=== PATIENT | male | born 1955 | race Two or more races ===

== ENCOUNTER 2017-06-06 09:34 | Inpatient (IN) | payer OTHER ==
[~2017-06-06] VITALS: Ht 160 cm; Wt 83.1 kg
--- NOTE | 2017-06-06 09:45 | NUR ---
BIB RA C/O L SIDED CP, NON RADIATING SINCE LAST NIGHT WITH SOB GIVEN ASA AND NITRO IN FIELD W RELIEF. PLACED ON MONITOR. PT HAS LAC #18 IVG SERVICE CREW LEADER
[2017-06-06 09:59] LABS: BASOPHILS # (AUTO) 0.1 /CMM (0.0-0.2); HEMATOCRIT 35 % (39-51); HEMOGLOBIN 11.8 g/dL (13.5-17.5); LYMPHOCYTES # (AUTO) 1.7 /CMM (0.8-4.8); LYMPHOCYTES % (AUTO) 21.7 % (20.0-44.0); MEAN CORPUSCULAR HGB CONC 34 g/dl (31.0-36.0); MEAN CORPUSCULAR VOLUME 93 fL (80-96); MONOCYTES # (AUTO) 0.6 /CMM (0.1-1.30); MONOCYTES % (AUTO) 7.7 % (2.0-12.0); NEUTROPHILS # (AUTO) 5.4 /CMM (1.8-8.9); NEUTROPHILS % (AUTO) 68.6 % (43.0-81.0); PLATELET COUNT (AUTO) 203 /CMM (150-450); RDW COEFFICIENT OF VARIATION 13.7 (11.5-15.0); RED BLOOD CELL COUNT(AUTO) 3.77 MIL/uL (4.5-6.0); WHITE BLOOD COUNT (AUTO) 7.9 K/uL (4.3-11.0)
[2017-06-06 10:08] LABS: CALCIUM, SERUM 9.1 mg/dL (8.5-10.1); CREATININE 1.2 mg/dL (0.6-1.3); POTASSIUM 4.2 mmol/L (3.5-5.1)
[2017-06-06 10:10] LABS: INR 1.12 (0.85-1.15)
[2017-06-06 10:14] LABS: ALBUMIN 3.5 g/dL (3.4-5.0); BILIRUBIN,DIRECT 0.2 mg/dL (0.0-0.2); BILIRUBIN,TOTAL 0.5 mg/dL (0.2-1.0); TOTAL PROTEIN, SERUM 7.5 g/dL (6.4-8.2); TROPONIN I 0.03 ng/mL (0.00-0.056)
[2017-06-06 10:20] LABS: ALCOHOL, BLOOD < 3 mg/dL (0-0); LIPASE 226 U/L (73-393)
--- NOTE | 2017-06-06 10:36 | NUR ---
PAGED EPIC COUNTER MANAGER IS DR KNOWLES
--- NOTE | 2017-06-06 11:12 | NUR ---
REPORT GIVEN TO ILIANA HUTTON FOR MUKUL TELE [phone]
[2017-06-06] MEDS ORDERED: IV NS 0.9% 1,000 ML IV PRN (11:16)
[2017-06-06] MEDS ORDERED: ZOLPIDEM TARTRATE 5 MG TABLET PO PRN (11:30)
[2017-06-06] MEDS ORDERED: ACETAMINOPHEN 325 MG TABLET PO PRN (11:30)
[2017-06-06] MEDS ORDERED: MORPHINE SULFATE INJ 2 MG/ML DISP.SYRIN IV PRN (11:30)
[2017-06-06] MEDS ORDERED: MAG HYDROX/AL HYDROX/SIMETH 30 ML UDC PO PRN (11:30)
[2017-06-06] MEDS ORDERED: MAGNESIUM HYDROXIDE 30 ML UDC PO PRN (11:30)
[2017-06-06] MEDS ORDERED: Z GUARD REMEDY 2 OZ OINT TP PRN (11:30)
[2017-06-06] MEDS ORDERED: ONDANSETRON HCL/PF 4 MG/2 ML VIAL IVP PRN (11:30)
--- NOTE | 2017-06-06 11:45 | NUR ---
RN NOTES PT WAS BROUGHT TO THE FLOOR IN STABLE CONDITION, ALERT AND ORIENTED X4. PT ABLE TO AMBULATE TO THE BED. IV ON LAC INTACT AND SL. PT ON RA, RESPIRATIONS ARE EVEN AND UNLABORED. TELE MONITOR SHOWS SR. SAFETY MEASURES ARE IN PLACE, CALL LIGHT IS IN REACH. WILL CONTINUE TO MONITOR.
[2017-06-06] MEDS ORDERED: FENTANYL PF 100MCG/2ML AMPUL IV PRN ×2 (12:00→18:30)
[2017-06-06] MEDS: ASPIRIN 81 MG TAB.CHEW PO SCH (12:18)
[2017-06-06] MEDS: PANTOPRAZOLE 40 MG TABLET.DR PO SCH (12:18)
[2017-06-06] MEDS: ENOXAPARIN SODIUM 40 MG/0.4 ML DISP.SYRIN SQ SCH (12:19)
[2017-06-06 13:03] LABS: MAGNESIUM 1.7 mg/dL (1.8-2.4); PHOSPHORUS 4.6 mg/dL (2.5-4.9)
[2017-06-06 14:00] LABS: THYROID STIMULATING HORMONE 4.199 uIU/mL (0.358-3.74)
[2017-06-06] MEDS: ALBUTEROL FS 2.5 MG/3 ML VIAL.NEB NEB SCH ×2 (15:30→19:47)
[2017-06-06 16:00] VITALS: BP 139/91
[2017-06-06] MEDS: NITROGLYCERIN 0.4 MG/TAB BOTTLE SL PRN ×2 (17:39→17:45)
[2017-06-06 17:45] VITALS: BP 137/70
[2017-06-06 17:50] VITALS: BP 128/76
--- NOTE | 2017-06-06 17:50 | NUR ---
RN NOTES PT REPORTING HAVING NON RADIATING CHEST PAIN, "FEELS LIKE SOMEONE IS SITTING ON MY CHEST". MADE MD AWARE. MD ORDERED NITROSTAT, STAT TROPONIN, AND EKG. NITRO GIVEN X2, CHEST PAIN RESOLVED. TELE MONITOR SHOWS SINUS TACH. WILL CONTINUE TO MONITOR.
--- NOTE | 2017-06-06 18:37 | NUR ---
RN NOTES PT IS SITTING UP IN BED, AWAKE AND ALERT. PT ON 3L O2, RESPIRATIONS ARE EVEN AND UNLABORED. IV ON LAC INTACT AND SL, PT DOES NOT WANT TO BE CONNECTED AT THIS TIME. PT REFUSED TO HAVE SKIN ASSESSMENT DONE. ALL MEDS WERE GIVEN ORDERED AND PT NEEDS MET. NO SIGNS OF DISTRESS NOTED. TELE MONITOR SHOWS SINUS RHYTHM. SAFETY MEASURES ARE IN PLACE, CALL LIGHT IS IN REACH. WILL ENDORSE TO AVIATION TECHNICAL SYSTEMS SPECIALIST RN FOR CONTINUITY OF CARE.
[2017-06-06] MEDS: HYDROCODONE/APAP 5/325MG 1 EACH TABLET PO PRN (19:55)
[2017-06-06 20:00] VITALS: BP 138/99
--- NOTE | 2017-06-06 20:00 | NUR ---
RN NOTES RECEIVED PATIENT IN BED, ALERT AND ORIENTED X4, WITH EPISODES OF IRRITABILITY, NO SOB, ON PRN O3 VIA NC, COMPLAINING OF 9/10 PAIN, GENERALIZED, GIVEN NORCO 1 TAB, LEFT AC PERIPHERAL LINE IS PATENT AND INFUSING WELL, REMINDED PATIENT OF BEING NPO AFTER MIDNIGHT, PATIENT VERBALIZED UNDERSTANDING. NO COMPLAIN OF CHEST PAIN, NEEDS ATTENDED, CALL LIGHT WITHIN REACH.
[2017-06-06 22:00] VITALS: BP 138/99
[2017-06-06] MEDS ORDERED: ATORVASTATIN 40 MG TABLET PO SCH (22:00)
[2017-06-07] VITALS: BP 121/92
[2017-06-07] MEDS: HYDROCODONE/APAP 5/325MG 1 EACH TABLET PO PRN (00:19)
[2017-06-07 04:00] VITALS: BP 128/85
--- NOTE | 2017-06-07 06:14 | NUR ---
RN NOTES PATIENT IS ALERT AND AWAKE, NO DISTRESS, ON 3LPM VIA NC, SPO2 AT ROOM AIR 90%. ON TELE MONITOR, SINUS TACHY 110, GIVEN NORCO FOR GENERALIZED PAIN. FOR EGD THIS AM, CONSENT SIGNED AND CHECKLIST IN CHART, NPO SINCE AFTER MIDNIGHT. AWAITING FELT CARBONIZER FROM SURGERY. NEEDS ATTENDED, CALL LIGHT WITHIN REACH.
[2017-06-07 06:51] LABS: ALBUMIN 3.2 g/dL (3.4-5.0); BILIRUBIN,TOTAL 0.3 mg/dL (0.2-1.0); CALCIUM, SERUM 9.1 mg/dL (8.5-10.1); CREATININE 1.1 mg/dL (0.6-1.3); MAGNESIUM 1.7 mg/dL (1.8-2.4); PHOSPHORUS 4.7 mg/dL (2.5-4.9); TOTAL PROTEIN, SERUM 7.3 g/dL (6.4-8.2)
[2017-06-07] MEDS ORDERED: ANESTHESIA TRAY IN PYXIS 1 EA TRAY MC ONE (06:52)
[2017-06-07 06:57] LABS: TROPONIN I 0.032 ng/mL (0.00-0.056)
[2017-06-07] MEDS: ALBUTEROL FS 2.5 MG/3 ML VIAL.NEB NEB SCH ×2 (07:09→10:43)
[2017-06-07 07:15] LABS: BASOPHILS # (AUTO) 0.1 /CMM (0.0-0.2); BASOPHILS % (AUTO) 1.3 % (0.0-2.0); EOSINOPHILS % (AUTO) 1.8 % (0.0-6.0); HEMATOCRIT 37 % (39-51); HEMOGLOBIN 12.3 g/dL (13.5-17.5); LYMPHOCYTES # (AUTO) 2.3 /CMM (0.8-4.8); LYMPHOCYTES % (AUTO) 25.4 % (20.0-44.0); MEAN CORPUSCULAR HGB CONC 34 g/dl (31.0-36.0); MEAN CORPUSCULAR VOLUME 95 fL (80-96); MONOCYTES # (AUTO) 0.7 /CMM (0.1-1.30); MONOCYTES % (AUTO) 7.4 % (2.0-12.0); NEUTROPHILS # (AUTO) 5.7 /CMM (1.8-8.9); NEUTROPHILS % (AUTO) 64.1 % (43.0-81.0); PLATELET COUNT (AUTO) 207 /CMM (150-450); RDW COEFFICIENT OF VARIATION 14.9 (11.5-15.0); RED BLOOD CELL COUNT(AUTO) 3.87 MIL/uL (4.5-6.0); WHITE BLOOD COUNT (AUTO) 8.9 K/uL (4.3-11.0)
--- NOTE | 2017-06-07 07:35 | NUR ---
MANDREL CLEANER OPENING NOTES RECEIVED PATIENT IN BED AWAKE, ALERT AND ORIENTED X4 IN NO ACUTE SIGNS OF DISTRESS. VERBALLY RESPONSIVE, NO C/O PAIN OR DISCOMFORTS AT THIS TIME. ON TELEMONITORING WITH CURRENT READING OF SINUS TACHY WITH HR OF 103, NO C/O CHEST PAIN VOICED. ON 02 VIA N/C AT 3LPM AT THIS TIME, TOLERATING WELL WITH NO SOB NOTED. IV ACCESS ON LEFT AC PATENT AND INTACT, IVF OF NS @ 75ML/HR INFUSING WELL. PT FOR FOR EGD AND STRESS TEST TODAY, NPO POST MIDNIGHT MAINTAINED. BED IN LOW/LOCKED POSITION. CALL LIGHT WITHIN REACH. WILL CONTINUE TO MONITOR PT.
--- NOTE | 2017-06-07 07:41 | NUR ---
RN NOTES PATIENT JUST PICKED-UP BY OR NURSE SARAH FOR EGD VIA PT'S BED. V/S TAKEN: BP 112/64MMHG, P 93, R18, T 97.8f. PT REFUSED TO PUT O2 VIA N/C, SP02 93%, OR NURSE SARAH AWARE.
[2017-06-07 08:00] VITALS: BP 138/96
[2017-06-07] MEDS ORDERED: REGADENOSON 0.4 MG/5 ML DISP.SYRIN IVP ONE (09:00)
[2017-06-07] MEDS ORDERED: ASPIRIN 81 MG TAB.CHEW PO SCH (09:00)
--- NOTE | 2017-06-07 09:06 | NUR ---
RN NOTES PT RETURNED FROM O.R ACCOMPANIED BY MILENA CORDOBA, OR NURSE. ALERT AND OREINTED X 4, FOLLOWS COMMANDS AND IN 02 VIA N/C AT 3LPM , NO SOB NOTED WITH SP02 OF 98%. PT S/P EGD. V/S TAKEN: BP 115/78, P 98, R 18 [address] T 97.4F. SURGICAL DR WITH ORDERS TO RESUME ALL MEDS, ADVANCE DIET TOLERATED AND GIVE PROTONIX 40MG TAB DAILY. WILL CONTINUE TO MONITOR
--- NOTE | 2017-06-07 09:23 | NUR ---
RN NOTES PATIENT BROUGHT DOWN FOR STRESS TEST VIA SAMMIERNEY A/O X 4 IN NO ACUTE SIGNS OF DISTRESS.
--- NOTE | 2017-06-07 09:53 | NUR ---
RN NOTES PATIENT NOTED WITH LOW LEVEL OF MG 1.7, 2mg IV MAGNESIUM TO BE GIVEN. WILL CONTINUE TO MONITOR.
[2017-06-07] MEDS: Magnesium 1GM/D5W 100ML PREMIX 100 ML IV SCH ×2 (10:10→11:11)
[2017-06-07] MEDS: ASPIRIN 81 MG TAB.CHEW PO SCH (10:10)
[2017-06-07] MEDS: PANTOPRAZOLE 40 MG TABLET.DR PO SCH (10:11)
[2017-06-07] MEDS: ENOXAPARIN SODIUM 40 MG/0.4 ML DISP.SYRIN SQ SCH (10:12)
[2017-06-07] MEDS ORDERED: PANT40TA2 PO (10:57)
--- NOTE | 2017-06-07 12:25 | NUR ---
Social service consult requested by Dr. Parry for homelessness. Pt. is a 61 year old male who was admitted to [facility] for chest pain. SW spoke to Med Surg3 MONSE Crowder who informed SW that pt. refused to see a social research assistant and informed MONSE Crowder that he does not need any resources and he has a place to live and can get there as well. No other social service needs are required at this time.
--- NOTE | 2017-06-07 12:57 | NUR ---
RN DISCHARGED NOTES PATIENT LEFT UNIT AMA AT 1230H AMBULATORY. PT IS AGITATED, SCREAMING AT STAFF AND REFUSED TO SIGN AMA CONSENT AND DISCHARGE PAPERS DESPITE ENCOURAGING HIM TO WAIT FOR THE RESULTS OF HIS TESTS (EGD AND STRESS TEST) THAT WAS DONE THIS MORNING. PT IS HOMELESS AND PREFERRED TO BE ON THE STREET. REFUSED TO TAKE PRESCRIPTION STATING HE DOESN'T TAKE ANY HOME MEDICATION. CHARGE NURSE AND AWARE.
[2017-06-30] MEDS ORDERED: BUME1TAB4 PO (08:25)
[2017-06-30] MEDS ORDERED: ASPI-1169 PO (08:25)
[2017-06-30] MEDS ORDERED: CARV3.122 PO (08:25)
[2017-06-30] MEDS ORDERED: GABA300C PO (08:25)
== END 2017-06-07 12:30 | disposition home or self-care (01) | DRG 241 ==
LOC: ER 09:36 → TELE 11:37 → MED 06-07 11:15
PROVIDERS: ADMIT Internal Medicine; ATTEND Internal Medicine
PROC: 0DB58ZX Excision of Esophagus, Via Natural or Artificial Opening Endoscopic, Diagnostic (ICD-10-PCS; principal; 2017-06-07 07:30)
PROC: 0DB68ZX Excision of Stomach, Via Natural or Artificial Opening Endoscopic, Diagnostic (ICD-10-PCS; principal; 2017-06-07 07:30)
DX: K29.00 Acute gastritis without bleeding (principal); I24.9 Acute ischemic heart disease, unspecified; E83.42 Hypomagnesemia; I10 Essential (primary) hypertension; D63.8 Anemia in other chronic diseases classified elsewhere; E11.9 Type 2 diabetes mellitus without complications; E78.5 Hyperlipidemia, unspecified; F10.20 Alcohol dependence, uncomplicated; Y90.0 Blood alcohol level of less than 20 mg/100 ml; Z86.73 Personal history of transient ischemic attack (TIA), and cerebral infarction without residual deficits; G89.29 Other chronic pain; F32.9 Major depressive disorder, single episode, unspecified; F17.200 Nicotine dependence, unspecified, uncomplicated; Z59.0 Homelessness; Z83.3 Family history of diabetes mellitus; Z82.49 Family history of ischemic heart disease and other diseases of the circulatory system; K21.0 Gastro-esophageal reflux disease with esophagitis; F39 Unspecified mood [affective] disorder
CPT/HCPCS: 36415; 71045-TC; 80048-TC; 80053-TC; 80061-TC; 80076-TC; 82306; 82728-TC; 83540-TC; 83690-TC; 83735-TC; 84100-TC; 84439-TC; 84443-TC; 84484-TC; 85025-TC; 85730-TC; 87081-TC; 88305-TC; 88313-TC; 88342; 93307-TC; 94799-TC; A4606; A9502; G0480; J1650; J2704; J2785; J3475; J3490; J7030; Z7610

== ENCOUNTER 2017-06-26 01:12 | Inpatient (IN) | payer OTHER ==
[~2017-06-26] VITALS: Ht 172.7 cm; Wt 81.6 kg
[~2017-06-26 01:12] MED LIST: PANT40TA2 PO
--- NOTE | 2017-06-26 01:12 | NUR ---
BIBRA 39 C/O LEFT SIDED CHEST PAIN AND SOB SINCE 10:30PM. FIELD BS 121. PT NOTED BREATHING HEAVILY AND ADMITS SMOKING DAILY. VSS A/OX4. WILL CONTINUE TO MONITOR FOR ANY CHANGES DURING THE SHIFT.
[2017-06-26] MEDS ORDERED: MORPHINE SULFATE INJ 4 MG/ML DISP.SYRIN ONE (01:23)
[2017-06-26] MEDS ORDERED: ONDANSETRON HCL/PF 4 MG/2 ML VIAL ONE (01:23)
[2017-06-26] MEDS ORDERED: ALBUTEROL FS 2.5 MG/0.5 ML VIAL.NEB ONE (01:27)
--- NOTE | 2017-06-26 01:27 | NUR ---
EKG AT BEDSIDE
[2017-06-26 01:29] LABS: BASOPHILS # (AUTO) 0.1 /CMM (0.0-0.2); BASOPHILS % (AUTO) 0.9 % (0.0-2.0); EOSINOPHILS % (AUTO) 1.6 % (0.0-6.0); HEMATOCRIT 33 % (39-51); HEMOGLOBIN 11.2 g/dL (13.5-17.5); LYMPHOCYTES # (AUTO) 2.5 /CMM (0.8-4.8); LYMPHOCYTES % (AUTO) 28.5 % (20.0-44.0); MEAN CORPUSCULAR HGB CONC 34 g/dl (31.0-36.0); MEAN CORPUSCULAR VOLUME 91 fL (80-96); MONOCYTES # (AUTO) 0.8 /CMM (0.1-1.30); MONOCYTES % (AUTO) 9.7 % (2.0-12.0); NEUTROPHILS # (AUTO) 5.1 /CMM (1.8-8.9); NEUTROPHILS % (AUTO) 59.3 % (43.0-81.0); PLATELET COUNT (AUTO) 264 /CMM (150-450); RDW COEFFICIENT OF VARIATION 15.1 (11.5-15.0); RED BLOOD CELL COUNT(AUTO) 3.68 MIL/uL (4.5-6.0); WHITE BLOOD COUNT (AUTO) 8.6 K/uL (4.3-11.0)
[2017-06-26] MEDS ORDERED: ALBUTEROL FS 2.5 MG/0.5 ML VIAL.NEB NEB ONE (01:30)
[2017-06-26] MEDS ORDERED: ONDANSETRON HCL/PF 4 MG/2 ML VIAL IVP ONE (01:30)
[2017-06-26] MEDS ORDERED: MORPHINE SULFATE INJ 2 MG/ML DISP.SYRIN IV ONE (01:30)
--- NOTE | 2017-06-26 01:39 | NUR ---
US TECH AT BEDSIDE
[2017-06-26 01:42] LABS: CREATININE 1.2 mg/dL (0.6-1.3); INR 1.25 (0.87-1.13); POTASSIUM 3.8 mmol/L (3.5-5.1)
[2017-06-26 01:48] LABS: TROPONIN I 0.045 ng/mL (0.00-0.056)
[2017-06-26] MEDS ORDERED: AZTREONAM 1 G in IV NS 0.9% 100 ML IV ONE (02:00)
[2017-06-26] MEDS ORDERED: LEVOFLOXACIN (500MG) 500 MG TABLET PO ONE (02:00)
[2017-06-26] MEDS ORDERED: LEVOFLOXACIN (500MG) 500 MG TABLET ONE (02:07)
[2017-06-26] MEDS ORDERED: AZTREONAM 1 G VIAL ONE (02:07)
--- NOTE | 2017-06-26 03:18 | NUR ---
ROOM 113
[2017-06-26 04:00] VITALS: BP 125/89
--- NOTE | 2017-06-26 04:00 | NUR ---
MURPHY RN NOTES RECEIVED PATIENT'S REPORT FROM ER NURSE SOLITARIO.PT IS A/O X4 WITH COMPLAIN OF NON RADIATING CHEST PAIN 9/, ST ON HEART MONITOR WITH HR-108. PT COMPLAINS OF SOB WITH SHALLOW BREATHING, SPO2-92% AND WAS PLACED ON 2L O2 VIA N/C. LEFT AC 18G IV LINE IA PATIENT AND INTACT. PT'S SCROTAL EDEMA AND ALL 4 EXTREMITIES SCABS ARE NOTED AND DOCUMENTED. WOUND AND DIETARY CONSULT REQUESTED. ALL SAFETY MEASURES IMPLEMENTED, BED IN LOWEST, LOCKED POSITION, CALL LIGHT WITHIN REACH. WILL CONT. TO MONITOR.
[2017-06-26] MEDS ORDERED: Z GUARD REMEDY 2 OZ OINT TP PRN (04:30)
[2017-06-26] MEDS ORDERED: ACETAMINOPHEN 325 MG TABLET PO PRN (04:30)
[2017-06-26] MEDS ORDERED: ONDANSETRON HCL/PF 4 MG/2 ML VIAL IVP PRN (04:30)
[2017-06-26] MEDS ORDERED: MAGNESIUM HYDROXIDE 30 ML UDC PO PRN (04:30)
[2017-06-26] MEDS: HYDROCODONE/APAP 5/325MG 1 EACH TABLET PO PRN ×3 (04:49→21:56)
[2017-06-26] MEDS: methylPREDNISolone SOD SUCC 40 MG/ML VIAL IV SCH ×4 (04:49→17:09)
[2017-06-26] MEDS: IPRATROPIUM NEB FS 0.5 MG/2.5 ML AMPUL.NEB NEB SCH ×5 (07:29→23:04)
[2017-06-26] MEDS: ALBUTEROL FS 2.5 MG/3 ML VIAL.NEB NEB SCH ×5 (07:29→23:05)
--- NOTE | 2017-06-26 07:57 | NUR ---
LANDSCAPING SPECIALIST NOTE: RECEIVED PATIENT IN BED AWAKE, ALERT AND ABLE TO MAKE HIS NEEDS KNOWN. ON HEAD AND NECK SURGEON, ST HR= 103. HOB ELEVATED. ON 02 VIA NC SATURATING 95%. DENIED ANY PAIN AT THIS TIME. PER CHERELLE, KELLIE SHIFT RN THE PATIENT HAD MONEY WITH HIM AND REFUSED TO BE KEPT ON THE SAFE. INTRODUCED SELF TO THE PATIENT AND DISCUSSED WITH HIM THE PLAN FOR TODAY. PATIENT IS VERY PLEASANT. INFORMED HIM ABOUT THE NURSE REPORT ABOUT HIS MONEY. THE PATIENT VERBALIZED, "I PREFER TO KEEP THE MONEY WITH ME. I HAVE BILLS TO PAY." OFFERED TO THE PATIENT THAT IT CAN BE KEEP ON A SAFE WHILE HE IS IN THE HOSPITAL, BUT HE STRONGLY REFUSED. PATIENT KEPT THE MONEY WITH HIM IN HIS WALLET. BED ALARMED AND LOCKED AT ALL TIMES. CALL LIGHT WITHIN REACH. NEEDS ANTICIPATED.
[2017-06-26 08:00] VITALS: BP 123/96
[2017-06-26] MEDS: PANTOPRAZOLE 40 MG TABLET.DR PO SCH (08:29)
[2017-06-26] MEDS: ASPIRIN 81 MG TAB.CHEW PO SCH (09:01)
[2017-06-26 11:21] LABS: MAGNESIUM 1.8 mg/dL (1.8-2.4); PHOSPHORUS 3.3 mg/dL (2.5-4.9)
[2017-06-26] MEDS: FUROSEMIDE 40 MG/4 ML VIAL IV SCH ×3 (11:32→18:13)
[2017-06-26] MEDS: POTASSIUM CHLORIDE 20 MEQ TAB.PRT.SR PO SCH ×3 (11:33→13:58)
[2017-06-26] MEDS: CARVEDILOL 3.125 MG TABLET PO SCH ×2 (11:34→20:55)
[2017-06-26 12:00] VITALS: BP 148/99
[2017-06-26 12:30] LABS: THYROID STIMULATING HORMONE 6.932 uIU/mL (0.358-3.74)
[2017-06-26 13:24] LABS: ABG OXYGEN SATURATION 94.6 % (92.0-98.5); ABG PH 7.383 (7.350-7.450); AaDO2 77.3 mmHg; COHb 0.8 % (0.5-1.5); MetHb 0.5 % (0.0-1.5); O2Hb 93.4 % (94.0-97.0); SITE, ABG Right Brachial; VENT MODE, BG NASALCANNULA
[2017-06-26 16:00] VITALS: BP 138/94
--- NOTE | 2017-06-26 18:17 | NUR ---
MS RN NOTE: SPOKE W/ THE PATIENT AND RE-ASSESSED HIS CURRENT PAIN LEEL AT THIS TIME. PATIENT VERBALIZED 5/10 PAIN ON HIS (L) SIDE OF THE ABDOMINAL AREA. ACCORDING TO THE PATIENT THIS IS A TOLERABLE PAIN LEVEL FOR HIM.
--- NOTE | 2017-06-26 19:30 | NUR ---
MS RN NOTES RECEIVED PT ON BED. ALERT ORIENTEDX4. IV ACCESS ON LAC G+18 PATENT AND INTACT. ON NASAL CANNULA 2L SATURATING WELL. HEAD OF BED ELEVATED. SIDE RAILS UP. CALL LIGHT WITHIN REACH. WILL CONTINUE TO MONITOR PT CLOSELY.
[2017-06-26 20:00] VITALS: BP 125/82
[2017-06-26 21:00] VITALS: BP 125/82
[2017-06-26] MEDS: LEVOFLOXACIN 750 MG /D5W 150ML 750 MG in PREMIX 1 EA IV SCH (23:01)
--- NOTE | 2017-06-27 02:15 | NUR ---
MS RN NOTES PT COMPLAINING OF GENERALIZED PAIN OF 7/10. NORCO GIVEN.
[2017-06-27] MEDS: HYDROCODONE/APAP 5/325MG 1 EACH TABLET PO PRN (02:23)
--- NOTE | 2017-06-27 02:35 | NUR ---
MS RN NOTES PT REASSESS PAIN LEVEL IS NOW 3/10. WILL CONTINUE TO MONITOR
[2017-06-27] MEDS: IPRATROPIUM NEB FS 0.5 MG/2.5 ML AMPUL.NEB NEB SCH ×6 (02:41→23:44)
[2017-06-27] MEDS: ALBUTEROL FS 2.5 MG/3 ML VIAL.NEB NEB SCH ×6 (02:43→23:44)
[2017-06-27] MEDS: GABAPENTIN 300 MG CAPSULE PO SCH ×4 (03:10→16:10)
--- NOTE | 2017-06-27 03:11 | NUR ---
MS RN NOTES NOTIFIED KYLE REGARDING THE PAIN IN THE FOOT. ORDERED GABAPENTIN 300MG TID. WILL CONTINUE TO MONITOR PT
[2017-06-27 04:00] VITALS: BP 135/90
[2017-06-27 05:00] VITALS: BP 135/90
[2017-06-27 07:19] LABS: HEMATOCRIT 35 % (39-51); HEMOGLOBIN 11.7 g/dL (13.5-17.5); LYMPHOCYTES # (AUTO) 1.1 /CMM (0.8-4.8); LYMPHOCYTES % (AUTO) 9.8 % (20.0-44.0); MEAN CORPUSCULAR HGB CONC 33 g/dl (31.0-36.0); MEAN CORPUSCULAR VOLUME 91 fL (80-96); MONOCYTES # (AUTO) 1.2 /CMM (0.1-1.30); MONOCYTES % (AUTO) 10.5 % (2.0-12.0); NEUTROPHILS # (AUTO) 9.1 /CMM (1.8-8.9); NEUTROPHILS % (AUTO) 79.7 % (43.0-81.0); PLATELET COUNT (AUTO) 253 /CMM (150-450); RDW COEFFICIENT OF VARIATION 15.5 (11.5-15.0); RED BLOOD CELL COUNT(AUTO) 3.88 MIL/uL (4.5-6.0); WHITE BLOOD COUNT (AUTO) 11.4 K/uL (4.3-11.0)
[2017-06-27 07:36] LABS: ALBUMIN 3.1 g/dL (3.4-5.0); BILIRUBIN,TOTAL 0.4 mg/dL (0.2-1.0); CALCIUM, SERUM 8.7 mg/dL (8.5-10.1); CREATININE 1.2 mg/dL (0.6-1.3); MAGNESIUM 1.5 mg/dL (1.8-2.4); PHOSPHORUS 3.2 mg/dL (2.5-4.9); POTASSIUM 3.9 mmol/L (3.5-5.1); TOTAL PROTEIN, SERUM 7.4 g/dL (6.4-8.2)
[2017-06-27 07:44] LABS: TROPONIN I 0.026 ng/mL (0.00-0.056)
--- NOTE | 2017-06-27 07:50 | NUR ---
MS RN NOTES NO ACUTE CHANGES NOTED DURING THE SHIFT. ENDORSE TO THE AM NURSE FOR MUKUL.
[2017-06-27 08:00] VITALS: BP 123/77
--- NOTE | 2017-06-27 08:00 | NUR ---
RN NOTES PATIENT A/OX3, PATIENT'S BREATHING APPEARS TO BE SLIGHTLY LABORED, PATIENT DENIES FEELING SHORT OF BREATH. DENIES PAIN AT THIS TIME, NEEDS ANTICIPATED, CALL LIGHT WITHIN REACH, SAFETY MEASURES IN PLACED, WILL CONTINUE TO MONITOR.
[2017-06-27] MEDS: ASPIRIN 81 MG TAB.CHEW PO SCH (08:32)
[2017-06-27] MEDS: methylPREDNISolone SOD SUCC 40 MG/ML VIAL IV SCH ×3 (08:32→16:10)
[2017-06-27] MEDS: PANTOPRAZOLE 40 MG TABLET.DR PO SCH (08:32)
[2017-06-27] MEDS: CARVEDILOL 3.125 MG TABLET PO SCH ×2 (08:33→22:18)
[2017-06-27] MEDS: Magnesium 1GM/D5W 100ML PREMIX 100 ML IV SCH ×2 (10:07→11:36)
[2017-06-27] MEDS ORDERED: POTASSIUM CHLORIDE 20 MEQ TAB.PRT.SR PO SCH (12:00)
[2017-06-27] MEDS ORDERED: FEE PK DOSING 1 MIN EA MC ONE (12:05)
[2017-06-27] MEDS: FUROSEMIDE 40 MG/4 ML VIAL IV SCH ×3 (12:19→20:59)
--- NOTE | 2017-06-27 12:55 | NUR ---
Social service consult requested by QUINTIN Cooper for homelessness. Pt. is a 61 year old male who was admitted to [facility] for chest pain. SW and casey saw operator Rj met with pt. bedside. Also present bedside, where members of the Homeless Outreach and mobile engagement Mendy Sawyer LVN and Mirtha Worrell. Little informed SW that they are working on finding rapid permanent housing for the pt. Mirtha informed SW that they will be able to get a motel voucher for the pt. when he is discharged from the hospital, that is if pt. does not need IV antibiotics. Pt. lives on the streets with his female grain trader and her cat Lilli. Pt. states he has been homeless for 16 months. Pt. is a [place] and refuses to apply for VA benefits. Mendy's and Mirtha's contact is . No other social service needs are required at this time. SW is available, if needed.
[2017-06-27] MEDS: SOD FERRIC GLUC 125 MG in IV NS 0.9% 100 ML IV SCH (14:39)
[2017-06-27 16:00] VITALS: BP 146/90
--- NOTE | 2017-06-27 18:00 | NUR ---
RN NOTES PATIENT A/OX4, NO DISTRESS NOTED, NO SIGNIFICANT CHANGE. DENIES PAIN OR DISCOMFORT, NO SOB AT THIS TIME. NEEDS ATTENDED, SKIN CARE RENDERED, ASSISTED WITH ADLS. CALL LIGHT WITHIN REACH, WILL ENDORSE TO EPIDEMIOLOGIST FOR MUKUL.
--- NOTE | 2017-06-27 19:26 | NUR ---
MS RN OPENING NOTES RECEIVED PT ON BED. ALERT ORIENTED X 4. IV ACCESS ON LAC G+18 PATENT AND INTACT, SL. ON NASAL CANNULA 3L SATURATING WELL. NOTED WITH SLIGHT SOB, DEEP BREATHING, RT MADE AWARE FOR SCHEDULED BREATHING TX. HEAD OF BED ELEVATED. SIDE RAILS UP. SAFETY MEASURES IN PLACE.CALL LIGHT WITHIN REACH. WILL CONTINUE TO MONITOR PT CLOSELY.
--- NOTE | 2017-06-27 20:59 | NUR ---
LASIX GIVEN PT'S BP NOTED TO BE 122/99, 101, 22, 98, ON 3LPM O2, SATTING 96%. SCHEDULED LASIX GIVEN ORDERED. WILL CONTINUE TO MONITOR FOR ANY MUKUL.
[2017-06-27 21:00] VITALS: BP 126/85
[2017-06-27] MEDS: ZOLPIDEM TARTRATE 5 MG TABLET PO PRN (22:22)
--- NOTE | 2017-06-27 22:23 | NUR ---
prn ambien given pt requested to take ambien due to sleeplessness. prn ambien given. will monitor for the effectiveness.
[2017-06-28] MEDS: LEVOFLOXACIN 750 MG /D5W 150ML 750 MG in PREMIX 1 EA IV SCH (00:05)
[2017-06-28] MEDS ORDERED: IV NS 0.9% 1,000 ML IV SCH (01:00)
[2017-06-28] MEDS ORDERED: VANCOMYCIN 1.5 GM in IV NS 0.9% 500 ML IV ONE (02:00)
[2017-06-28] MEDS ORDERED: VANCOMYCIN 1 GM VIAL ONE (02:19)
[2017-06-28] MEDS: ALBUTEROL FS 2.5 MG/3 ML VIAL.NEB NEB SCH ×6 (03:13→22:38)
[2017-06-28] MEDS: IPRATROPIUM NEB FS 0.5 MG/2.5 ML AMPUL.NEB NEB SCH ×6 (03:13→22:38)
[2017-06-28 04:37] LABS: APPEARANCE,URINE CLEAR (CLEAR); BILIRUBIN,URINE NEGATIVE (NEGATIVE); BLOOD, URINE NEGATIVE Ery/uL (NEGATIVE); COLOR,URINE YELLOW (YELLOW); KETONES,URINE NEGATIVE (NEGATIVE); LEUKOCYTE ESTERASE ,URINE NEGATIVE (NEGATIVE); NITRITE, URINE NEGATIVE (NEGATIVE); PROTEIN,URINE NEGATIVE (NEGATIVE); UGLUCOSE NEGATIVE (NEGATIVE); UROBILINOGEN,URINE 0.2 EU/dL (0.2)
[2017-06-28 05:00] VITALS: BP 143/86
[2017-06-28] MEDS ORDERED: PIPERACILLIN /TAZOBACTAM 3.375 G VIAL IV ONE (06:02)
[2017-06-28] MEDS: PIPERACILLIN /TAZOBACTAM 3.375 G in IV NS 0.9% 50 ML IV SCH ×4 (06:15→23:17)
[2017-06-28 06:16] LABS: BASOPHILS % (AUTO) 0.2 % (0.0-2.0); HEMATOCRIT 37 % (39-51); HEMOGLOBIN 12.1 g/dL (13.5-17.5); LYMPHOCYTES # (AUTO) 0.8 /CMM (0.8-4.8); LYMPHOCYTES % (AUTO) 5.7 % (20.0-44.0); MEAN CORPUSCULAR HGB CONC 33 g/dl (31.0-36.0); MEAN CORPUSCULAR VOLUME 92 fL (80-96); MONOCYTES # (AUTO) 1.1 /CMM (0.1-1.30); MONOCYTES % (AUTO) 7.6 % (2.0-12.0); NEUTROPHILS % (AUTO) 86.5 % (43.0-81.0); PLATELET COUNT (AUTO) 266 /CMM (150-450); RDW COEFFICIENT OF VARIATION 15.4 (11.5-15.0); RED BLOOD CELL COUNT(AUTO) 4.05 MIL/uL (4.5-6.0); WHITE BLOOD COUNT (AUTO) 13.9 K/uL (4.3-11.0)
[2017-06-28 06:52] LABS: CALCIUM, SERUM 8.4 mg/dL (8.5-10.1); CREATININE 1.3 mg/dL (0.6-1.3); MAGNESIUM 1.7 mg/dL (1.8-2.4); PHOSPHORUS 2.9 mg/dL (2.5-4.9); POTASSIUM 3.5 mmol/L (3.5-5.1)
--- NOTE | 2017-06-28 06:52 | NUR ---
MS RN CLOSING NOTES PT SLEPT INTERMITTENTLY, ALERT ORIENTED X 4. IV ACCESS ON LAC G+18 PATENT AND INTACT, RUNNING WITH IVF. ON NASAL CANNULA 3L SATURATING WELL. NOTED WITH SLIGHT SOB, DEEP BREATHING, BREATHING TX WAS EFFECTIVE & PT WAS ABLE TO SLEEP. HEAD OF BED ELEVATED. SIDE RAILS UP. SAFETY MEASURES IN PLACE.CALL LIGHT WITHIN REACH. WILL ENDORSE TO AM RN FOR CONTINUITY OF CARE.
[2017-06-28] MEDS ORDERED: FEE PK DOSING 1 MIN EA MC ONE (07:32)
--- NOTE | 2017-06-28 08:00 | NUR ---
MS RN NOTES PATIENT IN BED RESTING NO SOB OR ACUTE DISTRESS NOTED. PATIENT ALERT, ORIENTED X3 . PERIPHERAL IV INTACT PATENT. BED IN LOW LOCKED POSITION . CALL LIGHT WITHIN REACH. PATIENT NOTED WITH BLE EDEMA. WILL CONTINUE TO MONITOR.
[2017-06-28] MEDS: methylPREDNISolone SOD SUCC 40 MG/ML VIAL IV SCH ×3 (08:11→17:28)
[2017-06-28] MEDS: ASPIRIN 81 MG TAB.CHEW PO SCH (08:11)
[2017-06-28] MEDS: PANTOPRAZOLE 40 MG TABLET.DR PO SCH (08:11)
[2017-06-28] MEDS: GABAPENTIN 300 MG CAPSULE PO SCH ×3 (08:11→17:28)
[2017-06-28] MEDS: CARVEDILOL 3.125 MG TABLET PO SCH ×2 (08:12→21:08)
[2017-06-28] MEDS: Magnesium 1GM/D5W 100ML PREMIX 100 ML IV SCH ×2 (10:39→11:36)
[2017-06-28] MEDS: METOLAZONE 2.5 MG TABLET PO SCH (10:39)
[2017-06-28] MEDS ORDERED: BUMETANIDE INJ 8 MG in IV NS 0.9% 48 ML IV ONE (10:45)
--- NOTE | 2017-06-28 11:00 | NUR ---
MS RN NOTES PATIENT SEEN AND EVALUATED BY DR. KNOWLES ORDERS NOTED AND CARRIED OUT.
[2017-06-28] MEDS: HYDROCODONE/APAP 5/325MG 1 EACH TABLET PO PRN (14:48)
[2017-06-28] MEDS: VANCOMYCIN 1 GM in IV D5W 250 ML IV SCH (14:49)
--- NOTE | 2017-06-28 14:49 | NUR ---
Patient was seen by social service coordinator. Patient lives on the streets with his female technology risk intern and her cat Lilli. Patient states he has been homeless for 16 months. He is a and refuses to apply for VA benefits. Members of the Homeless Outreach and mobile engagement Mendy Sawyer LVN and Mirtha Worrell [phone] are working on finding rapid permanent housing. Mirtha informed SW that they will be able to get a motel voucher for the patient when he is discharged from the hospital. Addendum: 06/28/17 at 1449 by JOSÉ MANUEL SIDHU RN Amended: Links added.
[2017-06-28] MEDS: SOD FERRIC GLUC 125 MG in IV NS 0.9% 100 ML IV SCH (15:54)
--- NOTE | 2017-06-28 18:51 | NUR ---
MS RN NOTES PATIENT IN BED RESTING NO SOB OR ACUTE DISTRESS NOTED. PATIENT ALERT, ORIENTED X3. DENIES ANY PAIN. ALL DUE MEDICATIONS ADMINISTERED. ALL NEEDS MET WILL ENDORSE CARE TO PM SHIFT.
--- NOTE | 2017-06-28 19:34 | NUR ---
MS RN NOTES RECEIVED PT ON BED. ALERT ORIENTED X4. ON NC 3L SATURATING WELL. IV ACCESS ON LAC #18 NS @50CC/HR RUNNING WELL. NO SIGN OF REDNESS OR PAIN. HEAD OF BED ELEVATED. SIDE RAILS UP. CALL LIGHT IS WITHIN REACH. WILL CONTINUE TO MONITOR PT CLOSELY.
[2017-06-28 20:00] VITALS: BP_SYST 131; BP_SYST 141; BP_DIAS 87; BP_DIAS 93
[2017-06-28] MEDS: ZOLPIDEM TARTRATE 5 MG TABLET PO PRN (23:17)
[2017-06-29] MEDS: VANCOMYCIN 1 GM in IV D5W 250 ML IV SCH ×2 (01:11→15:21)
[2017-06-29] MEDS: IPRATROPIUM NEB FS 0.5 MG/2.5 ML AMPUL.NEB NEB SCH ×7 (02:39→22:50)
[2017-06-29] MEDS: ALBUTEROL FS 2.5 MG/3 ML VIAL.NEB NEB SCH ×6 (02:40→22:50)
[2017-06-29 04:00] VITALS: BP 131/87
[2017-06-29] MEDS: PIPERACILLIN /TAZOBACTAM 3.375 G in IV NS 0.9% 50 ML IV SCH ×3 (05:03→17:10)
[2017-06-29 06:33] LABS: BASOPHILS # (AUTO) 0.1 /CMM (0.0-0.2); BASOPHILS % (AUTO) 0.7 % (0.0-2.0); HEMATOCRIT 40 % (39-51); HEMOGLOBIN 13.2 g/dL (13.5-17.5); LYMPHOCYTES % (AUTO) 6.5 % (20.0-44.0); MEAN CORPUSCULAR HGB CONC 33 g/dl (31.0-36.0); MEAN CORPUSCULAR VOLUME 91 fL (80-96); MONOCYTES # (AUTO) 1.1 /CMM (0.1-1.30); MONOCYTES % (AUTO) 7.1 % (2.0-12.0); NEUTROPHILS % (AUTO) 85.7 % (43.0-81.0); PLATELET COUNT (AUTO) 275 /CMM (150-450); RDW COEFFICIENT OF VARIATION 15.7 (11.5-15.0); RED BLOOD CELL COUNT(AUTO) 4.44 MIL/uL (4.5-6.0); WHITE BLOOD COUNT (AUTO) 15.2 K/uL (4.3-11.0)
--- NOTE | 2017-06-29 06:35 | NUR ---
MS RN NOTES NO ACUTE CHANGES NOTED DURING THE SHIFT. DUE MEDS GIVEN. HEAD OF BED ELEVATED. PROVIDED COMFORT AND SAFETY. WILL ENDORSE TO THE AM NURSE FOR MUKUL.
[2017-06-29 06:54] LABS: ALBUMIN 3.4 g/dL (3.4-5.0); BILIRUBIN,TOTAL 0.3 mg/dL (0.2-1.0); CALCIUM, SERUM 9.5 mg/dL (8.5-10.1); CREATININE 1.3 mg/dL (0.6-1.3); MAGNESIUM 2.4 mg/dL (1.8-2.4); PHOSPHORUS 3.5 mg/dL (2.5-4.9); TOTAL PROTEIN, SERUM 7.7 g/dL (6.4-8.2)
--- NOTE | 2017-06-29 07:10 | NUR ---
RN NOTES PATIENT IN BED ALERT ORIENTED X 3. NO ACUTE DISTRESS NOTED. NO SOB NOTED. BREATHING UNLABORED. IV ACCESS PATENT AND INTACT. SAFETY MEASURES IN PLACE.CALL LIGHT WITHIN REACH.WILL CONTINUE TO MONITOR ACCORDINGLY
[2017-06-29 07:40] LABS: POTASSIUM 2.8 mmol/L (3.5-5.1)
[2017-06-29 08:00] VITALS: BP 122/73
[2017-06-29] MEDS: methylPREDNISolone SOD SUCC 40 MG/ML VIAL IV SCH ×3 (08:16→17:06)
[2017-06-29] MEDS: GABAPENTIN 300 MG CAPSULE PO SCH ×3 (08:16→17:06)
[2017-06-29] MEDS: PANTOPRAZOLE 40 MG TABLET.DR PO SCH (08:16)
[2017-06-29] MEDS: ASPIRIN 81 MG TAB.CHEW PO SCH (08:16)
[2017-06-29] MEDS: METOLAZONE 2.5 MG TABLET PO SCH (08:17)
[2017-06-29] MEDS: CARVEDILOL 3.125 MG TABLET PO SCH ×2 (08:17→20:41)
--- NOTE | 2017-06-29 09:45 | NUR ---
RN NOTES DR KNOWLES MADE AWARE OF POTASSIUM LEVEL 2.8.
--- NOTE | 2017-06-29 10:05 | NUR ---
RN NOTES SEEN AND EVALUATED BY DR MENDEZ WITH NEW ORDERS MADE. NOTED AND CARRIED OUT.
[2017-06-29] MEDS: POTASSIUM CHLORIDE 20 MEQ TAB.PRT.SR PO SCH ×5 (11:18→15:43)
[2017-06-29 12:00] VITALS: BP 125/75
[2017-06-29] MEDS: SOD FERRIC GLUC 125 MG in IV NS 0.9% 100 ML IV SCH (13:55)
[2017-06-29 16:00] VITALS: BP 135/72
--- NOTE | 2017-06-29 18:26 | NUR ---
MS RN NOTES PATIENT IN BED, ALERT ORIENTED X 4 , FAMILY AT BEDSIDE. NO ACUTE DISTRESS NOTED. BREATHING UNLABORED. IV ACCESS PATENT AND INTACT. DUE MEDICATION GIVEN, NO ASE NOTED. NEEDS ATTENDED AND ANTICIPATED. SAFETY MEASURES IN PLACE. WILL CONTINUE TO MONITOR ACCORDINGLY. WILL ENDORSE TO NIGHT NURSE FOR CONTINUITY OF CARE.
[2017-06-29 20:00] VITALS: BP 142/82
[2017-06-29] MEDS: HYDROCODONE/APAP 5/325MG 1 EACH TABLET PO PRN (21:42)
[2017-06-30] VITALS: BP 138/87
[2017-06-30] MEDS: PIPERACILLIN /TAZOBACTAM 3.375 G in IV NS 0.9% 50 ML IV SCH ×2 (00:17→05:18)
[2017-06-30] MEDS: VANCOMYCIN 1 GM in IV D5W 250 ML IV SCH (01:22)
[2017-06-30] MEDS: ALBUTEROL FS 2.5 MG/3 ML VIAL.NEB NEB SCH ×4 (03:16→15:46)
[2017-06-30] MEDS: IPRATROPIUM NEB FS 0.5 MG/2.5 ML AMPUL.NEB NEB SCH ×4 (03:16→15:46)
[2017-06-30 04:00] VITALS: BP 139/62
[2017-06-30] MEDS: HYDROCODONE/APAP 5/325MG 1 EACH TABLET PO PRN (05:20)
--- NOTE | 2017-06-30 07:15 | NUR ---
MS RN NOTE: RECEIVED PATIENT IN BED, AWAKE, ALERT AND ABLE TO MAKE HIS NEEDS KNOWN. HOB ELEVATED. (L) AC IV LINE NOTED INTACT AND PATENT. RESPIRATION IS EVEN AND UNLABORED. SATURATING 95% IN ROOM AIR. DENIED ANY PAIN. BED ALARMED AND LOCKED AT ALL TIMES. CALL LIGHT WITHIN REACH. NEEDS ANTICIPATED.
[2017-06-30 07:20] LABS: CALCIUM, SERUM 9.2 mg/dL (8.5-10.1); CREATININE 1.3 mg/dL (0.6-1.3); POTASSIUM 3.2 mmol/L (3.5-5.1)
[2017-06-30 08:00] VITALS: BP 140/85
[2017-06-30] MEDS: GABAPENTIN 300 MG CAPSULE PO SCH ×3 (08:24→16:35)
[2017-06-30] MEDS ORDERED: ASPI-1169 PO (08:25)
[2017-06-30] MEDS ORDERED: BUME1TAB4 PO (08:25)
[2017-06-30] MEDS: CARVEDILOL 3.125 MG TABLET PO SCH (08:25)
[2017-06-30] MEDS: ASPIRIN 81 MG TAB.CHEW PO SCH (08:25)
[2017-06-30] MEDS: PANTOPRAZOLE 40 MG TABLET.DR PO SCH (08:25)
[2017-06-30] MEDS ORDERED: GABA300C PO (08:25)
[2017-06-30] MEDS ORDERED: CARV3.122 PO (08:25)
[2017-06-30] MEDS ORDERED: BUMETANIDE (1 MG) 1 MG TABLET PO SCH (09:00)
[2017-06-30] MEDS: POTASSIUM CHLORIDE 20 MEQ TAB.PRT.SR PO SCH ×2 (12:10→14:21)
--- NOTE | 2017-06-30 13:55 | NUR ---
VANI called [facility] to speak to Mirtha or Little to inquire if they will be able get pt. motel vouchers since pt. is being discharged today. VANI was informed by the navy seal the both Mirtha and Little are at a training and will be back in the office at 2:30PM. VANI informed porter sample case Rj to follow up with Mirtha at 2:30PM since VANI will be out of the office.
[2017-06-30] MEDS: SOD FERRIC GLUC 125 MG in IV NS 0.9% 100 ML IV SCH (14:12)
[2017-06-30 16:00] VITALS: BP 127/79
--- NOTE | 2017-06-30 16:00 | NUR ---
MS RN NOTE: PATIENT WAS INFORMED THAT A COMPLETE BODY CHECK WILL BE DONE AND WILL TAKE PICTURES OF HIS SKIN. PATIENT STRONGLY REFUSED TO HAVE HIS BODY CHECK DONE AND TO HAVE PICTURES TAKEN. DR. KNOWLES MADE AWARE.
--- NOTE | 2017-06-30 18:40 | NUR ---
MS RN NOTE: PATIENT WAS DISCHARGED FROM THE HOSPITAL AND LEFT VIA TAXI. ALL BELONGINGS WERE RELEASED WITH THE PATIENT INCLUDING HIS 2 CIGARETTES AND RED PLATE MAKER AND HIS MONEY. TAXI WAS GOING TO [address] [place] [address]. PATIENT WAS GIVEN DISCHARGE INSTRUCTIONS AND EXIT CARE WAS DONE. PATIENT WAS WHEELED TO THE HOSPITAL MAIN LOBBY VIA WHEELCHAIR. TAXI VOUCHER WAS GIVEN TO THE FUEL HANDLER. INSTRUCTED THE PATIENT TO GO TO HIS PREFERRED PHARMACY [facility] IN [place]) IN ORDER TO PICK-UP HIS PRESCRIPTIONS. PATIENT UNDERSTOOD AND WAS INFORMED TO FOLLOW-UP WITH HIS PRIMARY CARE DOCTOR WITHIN 1 WEEK AND TO BRING ALL HIS PAPERWORK FROM THE HOSPITAL. PATIENT UNDERSTOOD AND COOPERATIVE DURING DISCHARGE. (L) AC IV LINE WAS REMOVED COVERED WITH DRY GAUZE AND SECURED WITH TAPE. PRESSURE WAS APPLIED.
--- NOTE | 2017-07-01 12:53 | NUR ---
PRESCRIPTION CALL IN TO [facility] SPOKE WITH ONIE [phone] PER PATIENT REQUEST.
== END 2017-06-30 18:40 | disposition home or self-care (01) | DRG 194 ==
LOC: ER 01:16 → TELE-TD 03:13 → TELE1 06:14 → MEDSG1 13:21
PROVIDERS: ADMIT Nurse Practitioner Acute Care; ATTEND Nurse Practitioner Acute Care
DX: I11.0 Hypertensive heart disease with heart failure (principal); N17.0 Acute kidney failure with tubular necrosis; J44.1 Chronic obstructive pulmonary disease with (acute) exacerbation; D63.8 Anemia in other chronic diseases classified elsewhere; E11.9 Type 2 diabetes mellitus without complications; E61.1 Iron deficiency; F32.9 Major depressive disorder, single episode, unspecified; E78.5 Hyperlipidemia, unspecified; I50.33 Acute on chronic diastolic (congestive) heart failure; K21.9 Gastro-esophageal reflux disease without esophagitis; Z86.73 Personal history of transient ischemic attack (TIA), and cerebral infarction without residual deficits; G89.29 Other chronic pain; M54.9 Dorsalgia, unspecified; F41.9 Anxiety disorder, unspecified; F17.210 Nicotine dependence, cigarettes, uncomplicated; Z91.19 Patient's noncompliance with other medical treatment and regimen; Z59.0 Homelessness; N43.3 Hydrocele, unspecified; D72.829 Elevated white blood cell count, unspecified; T38.0X5A Adverse effect of glucocorticoids and synthetic analogues, initial encounter; E87.6 Hypokalemia
CPT/HCPCS: 36415; 36600; 71045-TC; 76870-TC; 80048-TC; 80053-TC; 80202-TC; 81000-TC; 82306; 82728-TC; 82803-TC; 83540-TC; 83605-TC; 83735-TC; 83880; 84100-TC; 84439-TC; 84443-TC; 84484-TC; 85025-TC; 85730-TC; 87040-TC; 87081-TC; 87086-TC; 94799-TC; A4216; A4606; J1940; J1956; J2270; J2405; J2543; J2916; J2920; J3370; J3475; J3490; J7030; J7040; J7050; J7060; Z7610

== ENCOUNTER 2018-03-21 14:10 | Inpatient (IN) | payer OTHER ==
[~2018-03-21] VITALS: Ht 162.6 cm; Wt 85.0 kg
[~2018-03-21 14:10] MED LIST changes: +ASPI-1169 PO; +AZIT250T PO; +CARV3.122 PO; +ENOX40DI SQ; +FURO10VI IV; +GABA300C PO; +INSU100V28 SQ; +NICO-677 TD
[2018-03-21 14:48] LABS: BASOPHILS # (AUTO) 0.1 /CMM (0.0-0.2); BASOPHILS % (AUTO) 0.7 % (0.0-2.0); EOSINOPHILS % (AUTO) 0.5 % (0.0-6.0); HEMATOCRIT 35 % (39-51); HEMOGLOBIN 11.5 g/dL (13.5-17.5); LYMPHOCYTES # (AUTO) 0.8 /CMM (0.8-4.8); LYMPHOCYTES % (AUTO) 9.8 % (20.0-44.0); MEAN CORPUSCULAR HGB CONC 33 g/dl (31.0-36.0); MEAN CORPUSCULAR VOLUME 91 fL (80-96); MONOCYTES # (AUTO) 1.2 /CMM (0.1-1.30); MONOCYTES % (AUTO) 14.1 % (2.0-12.0); NEUTROPHILS # (AUTO) 6.5 /CMM (1.8-8.9); NEUTROPHILS % (AUTO) 74.9 % (43.0-81.0); PLATELET COUNT (AUTO) 268 /CMM (150-450); RED BLOOD CELL COUNT(AUTO) 3.88 MIL/uL (4.5-6.0); WHITE BLOOD COUNT (AUTO) 8.6 K/uL (4.3-11.0)
[2018-03-21] MEDS ORDERED: MORPHINE SULFATE INJ 4 MG/ML DISP.SYRIN ONE (14:50)
[2018-03-21] MEDS ORDERED: ONDANSETRON HCL/PF 4 MG/2 ML VIAL ONE (14:50)
[2018-03-21] MEDS ORDERED: VANCOMYCIN 1 GM in IV D5W 250 ML IV ONE (15:00)
[2018-03-21] MEDS ORDERED: PIPERACILLIN /TAZOBACTAM 3.375 G in IV D5W 50 ML IV ONE (15:00)
[2018-03-21] MEDS ORDERED: ONDANSETRON HCL/PF 4 MG/2 ML VIAL IVP ONE (15:00)
[2018-03-21] MEDS ORDERED: IV NS 0.9% 1,000 ML BAG IV ONE (15:00)
[2018-03-21] MEDS ORDERED: MORPHINE SULFATE INJ 2 MG/ML DISP.SYRIN IV ONE (15:00)
[2018-03-21 15:01] LABS: ALANINE AMINOTRANSFERASE 30 U/L (12-78); ALBUMIN 3.1 g/dL (3.4-5.0); ALKALINE PHOSPHATASE 146 U/L (46-116); ASPARTATE AMINOTRANSFERASE 26 U/L (15-37); BILIRUBIN,DIRECT 1.4 mg/dL (0.0-0.2); BILIRUBIN,TOTAL 2.5 mg/dL (0.2-1.0); CALCIUM, SERUM 9.2 mg/dL (8.5-10.1); CARBON DIOXIDE 24 mmol/L (21-32); CHLORIDE 98 mmol/L (98-107); GLUCOSE 135 mg/dL (74-106); POTASSIUM 3.5 mmol/L (3.5-5.1); SODIUM SERUM 133 mmol/L (136-145); TOTAL PROTEIN, SERUM 7.3 g/dL (6.4-8.2); UREA NITROGEN, BLOOD 14 mg/dL (7-18)
[2018-03-21 17:25] VITALS: BP 112/76
[2018-03-21] MEDS ORDERED: Z GUARD REMEDY 2 OZ OINT TP PRN (18:00)
[2018-03-21] MEDS ORDERED: ACETAMINOPHEN 325 MG TABLET PO PRN (18:00)
[2018-03-21] MEDS ORDERED: INSULIN REGULAR, HUMAN 100 UNIT/ML 3 ML VIAL SQ PRN (18:00)
[2018-03-21] MEDS ORDERED: DEXTROSE 50%-WATER 50 ML DISP.SYRIN IV PRN (18:00)
[2018-03-21] MEDS ORDERED: ONDANSETRON HCL/PF 4 MG/2 ML VIAL IVP PRN (18:00)
[2018-03-21] MEDS ORDERED: MAGNESIUM HYDROXIDE 30 ML UDC PO PRN (18:00)
[2018-03-21] MEDS ORDERED: ZOLPIDEM TARTRATE 5 MG TABLET PO PRN (18:00)
[2018-03-21] MEDS ORDERED: MAG HYDROX/AL HYDROX/SIMETH 30 ML UDC PO PRN (18:00)
[2018-03-21] MEDS ORDERED: *INSULIN REGULAR(HUMULIN R)HUM 100 UNIT/ML VIAL SQ PRN (18:00)
[2018-03-21] MEDS: IV NS 0.9% 1,000 ML IV PRN (18:08)
[2018-03-21] MEDS ORDERED: FEE PK DOSING 1 MIN EA MC ONE (18:08)
[2018-03-21] MEDS: BLOOD SUGAR DIAGNOSTIC 1 EACH STRIP IN SCH ×2 (18:08→22:39)
[2018-03-21] MEDS: GABAPENTIN 300 MG CAPSULE PO SCH (18:08)
[2018-03-21] MEDS: HYDROCODONE/APAP 5/325MG 1 EACH TABLET PO PRN (18:18)
[2018-03-21 20:00] VITALS: BP 114/75
[2018-03-21] MEDS ORDERED: CEFTRIAXONE 1 G in IV D5W 50 ML IV SCH (20:00)
[2018-03-21] MEDS: CARVEDILOL 3.125 MG TABLET PO SCH (20:15)
[2018-03-22] MEDS: HYDROCODONE/APAP 5/325MG 1 EACH TABLET PO PRN ×2 (00:35→11:03)
[2018-03-22] MEDS: VANCOMYCIN 1 GM in IV D5W 250 ML IV SCH ×2 (02:24→15:48)
[2018-03-22 04:00] VITALS: BP 133/90
[2018-03-22 06:15] LABS: BASOPHILS # (AUTO) 0.2 /CMM (0.0-0.2); EOSINOPHILS % (AUTO) 1.8 % (0.0-6.0); HEMATOCRIT 36 % (39-51); HEMOGLOBIN 11.5 g/dL (13.5-17.5); LYMPHOCYTES # (AUTO) 1.5 /CMM (0.8-4.8); LYMPHOCYTES % (AUTO) 15.4 % (20.0-44.0); MEAN CORPUSCULAR HGB CONC 32 g/dl (31.0-36.0); MEAN CORPUSCULAR VOLUME 91 fL (80-96); MONOCYTES # (AUTO) 1.3 /CMM (0.1-1.30); MONOCYTES % (AUTO) 14.3 % (2.0-12.0); NEUTROPHILS # (AUTO) 6.2 /CMM (1.8-8.9); NEUTROPHILS % (AUTO) 66.5 % (43.0-81.0); PLATELET COUNT (AUTO) 286 /CMM (150-450); WHITE BLOOD COUNT (AUTO) 9.4 K/uL (4.3-11.0)
[2018-03-22 06:44] LABS: ALBUMIN 3.1 g/dL (3.4-5.0); BILIRUBIN,TOTAL 2.2 mg/dL (0.2-1.0); CALCIUM, SERUM 8.7 mg/dL (8.5-10.1); CREATININE 1.2 mg/dL (0.6-1.3); MAGNESIUM 1.7 mg/dL (1.8-2.4); PHOSPHORUS 3.7 mg/dL (2.5-4.9); TOTAL PROTEIN, SERUM 7.5 g/dL (6.4-8.2)
[2018-03-22] MEDS: BLOOD SUGAR DIAGNOSTIC 1 EACH STRIP IN SCH ×2 (07:59→11:12)
[2018-03-22 08:00] VITALS: BP 113/60
[2018-03-22] MEDS ORDERED: NICOTINE PATCH (21MG) 21 MG PATCH.TD24 TD SCH (09:00)
[2018-03-22] MEDS ORDERED: ASPIRIN 81 MG TAB.CHEW PO SCH (09:00)
[2018-03-22 09:18] VITALS: BP 113/60
[2018-03-22] MEDS: GABAPENTIN 300 MG CAPSULE PO SCH ×2 (09:18→13:41)
[2018-03-22] MEDS: CARVEDILOL 3.125 MG TABLET PO SCH (09:18)
[2018-03-22] MEDS: IV NS 0.9% 1,000 ML IV PRN (11:09)
[2018-03-22] MEDS: Magnesium 1GM/D5W 100ML PREMIX 100 ML IV SCH ×2 (13:45→14:45)
== END 2018-03-22 16:50 | disposition short-term general hospital (02) | DRG 139 ==
LOC: ER 14:10 → MED 16:37 → TELE 03-22 07:48 → MED 03-22 15:59
PROVIDERS: ADMIT Internal Medicine; ATTEND Internal Medicine
DX: J15.9 Unspecified bacterial pneumonia (principal); I11.0 Hypertensive heart disease with heart failure; L03.115 Cellulitis of right lower limb; I50.9 Heart failure, unspecified; E87.1 Hypo-osmolality and hyponatremia; L03.116 Cellulitis of left lower limb; E78.5 Hyperlipidemia, unspecified; E11.9 Type 2 diabetes mellitus without complications; D63.8 Anemia in other chronic diseases classified elsewhere; F17.200 Nicotine dependence, unspecified, uncomplicated; Z86.73 Personal history of transient ischemic attack (TIA), and cerebral infarction without residual deficits; Z83.3 Family history of diabetes mellitus; Z82.49 Family history of ischemic heart disease and other diseases of the circulatory system; Z79.82 Long term (current) use of aspirin; Z79.4 Long term (current) use of insulin; G89.29 Other chronic pain; Z91.013 Allergy to seafood; K21.9 Gastro-esophageal reflux disease without esophagitis; F41.9 Anxiety disorder, unspecified; Z59.0 Homelessness
CPT/HCPCS: 36415; 71045-TC; 80048-TC; 80053-TC; 80061-TC; 80076-TC; 80202-TC; 82962-TC; 83605-TC; 83735-TC; 84100-TC; 84484-TC; 85025-TC; 85730-TC; 87040-TC; 87081-TC; G0378; J0696; J1815; J2270; J2405; J2543; J3370; J3475; J7030; J7060

== ENCOUNTER 2018-05-09 18:11 | Inpatient (IN) | payer SELFPAY ==
[~2018-05-09] VITALS: Ht 172.7 cm; Wt 90.7 kg
--- NOTE | 2018-05-09 18:18 | NUR ---
PT [id number], C/O LEFT LOWER EXTREMITY WOUND, PAIN, AND BLISTER, PT IS AAOX4, NOT IN RESPIRATORY DISTRESS, NOTED GEN BODY WEAKNESS AND SORENESS, V/S STABLE, HOOKED TO MONITOR, KEPT RESTED AND COMFORTABLE, WILL CONTINUE TO MONITOR.
--- NOTE | 2018-05-09 18:55 | NUR ---
SEEN AND EXAMINED BY DR. ENGLAND.
[2018-05-09] MEDS ORDERED: PIPERACILLIN /TAZOBACTAM 3.375 G in IV D5W 50 ML IV ONE ×2 (19:00→20:00)
[2018-05-09] MEDS ORDERED: VANCOMYCIN 1 GM in IV D5W 250 ML IV ONE (19:00)
--- NOTE | 2018-05-09 19:10 | NUR ---
IV LINE ESTABLISHED. LABS DRAWNED AND SENT TO LAB.
--- NOTE | 2018-05-09 19:11 | NUR ---
WOUND CULTURE OBTAINED AND SENT TO LAB.
--- NOTE | 2018-05-09 19:21 | NUR ---
REPORT GIVEN TO ILIANA BECERRA FOR MUKUL. AWAITING ANTIBIOTIC DELIVERY FROM PHARMACY.
--- NOTE | 2018-05-09 19:26 | NUR ---
COURTESY DRIVER AT BEDSIDE FOR XRAY.
[2018-05-09 19:28] LABS: BASOPHILS % (AUTO) 2.2 % (0.0-2.0); EOSINOPHILS % (AUTO) 0.2 % (0.0-6.0); HEMATOCRIT 31 % (39-51); HEMOGLOBIN 9.5 g/dL (13.5-17.5); MEAN CORPUSCULAR HGB CONC 31 g/dl (31.0-36.0); MEAN CORPUSCULAR VOLUME 86 fL (80-96); MONOCYTES % (AUTO) 7.2 % (2.0-12.0); NEUTROPHILS % (AUTO) 86.4 % (43.0-81.0); PLATELET COUNT (AUTO) 256 /CMM (150-450); RED BLOOD CELL COUNT(AUTO) 3.63 MIL/uL (4.5-6.0); WHITE BLOOD COUNT (AUTO) 14.2 K/uL (4.3-11.0)
[2018-05-09 19:29] LABS: BASOPHILS # (AUTO) 0.3 /CMM (0.0-0.2); LYMPHOCYTES # (AUTO) 0.6 /CMM (0.8-4.8); NEUTROPHILS # (AUTO) 12.2 /CMM (1.8-8.9)
[2018-05-09 19:43] LABS: SERUM AMMONIA 7 umol/L (11-32)
[2018-05-09 19:55] LABS: CARBON DIOXIDE 16 mmol/L (21-32); CHLORIDE 94 mmol/L (98-107); POTASSIUM 4.6 mmol/L (3.5-5.1); SODIUM SERUM 127 mmol/L (136-145)
[2018-05-09 19:56] LABS: ALANINE AMINOTRANSFERASE 31 U/L (12-78); ALBUMIN 3.1 g/dL (3.4-5.0); ALKALINE PHOSPHATASE 116 U/L (46-116); ASPARTATE AMINOTRANSFERASE 34 U/L (15-37); BILIRUBIN,DIRECT 1.7 mg/dL (0.0-0.2); BILIRUBIN,TOTAL 2.6 mg/dL (0.2-1.0); CREATININE 1.5 mg/dL (0.6-1.3); GLUCOSE 85 mg/dL (74-106); UREA NITROGEN, BLOOD 33 mg/dL (7-18)
[2018-05-09 19:57] LABS: ALCOHOL, BLOOD < 3 mg/dL (0-0); B-TYPE NATRIURETIC PEPTIDE 3574 PG/ML (0-125); TOTAL PROTEIN, SERUM 7.8 g/dL (6.4-8.2)
[2018-05-09] MEDS ORDERED: ONDANSETRON HCL/PF 4 MG/2 ML VIAL ONE (20:13)
--- NOTE | 2018-05-09 20:59 | NUR ---
ROSA PAGED, DR. SHAY CHURN DRILL OPERATOR
--- NOTE | 2018-05-09 21:19 | NUR ---
[facility] REPAGED
--- NOTE | 2018-05-09 21:31 | NUR ---
CALLED NURSING SUP. FOR TELE BED
--- NOTE | 2018-05-09 22:02 | NUR ---
TELE [phone]
--- NOTE | 2018-05-09 22:11 | NUR ---
REPORT GIVEN TO ROYA BARRIENTOS.
--- NOTE | 2018-05-09 22:19 | NUR ---
LONG TERMSNOWBLOWER MECHANIC NOTES RECEIVED PT FROM ER VIA RANJANA. PT A/O X3 AND ABLE TO MAKE NEEDS KNOWN. RESPIRATION EVEN AND NON LABORED WITH NO ACUTE RESPIRATORY DISTRESS, NO SHORTNESS OF BREATH PRESENT. HEAD OF BED ELEVATED. SKIN WARM TO TOUCH, INTACT AND DRY. IV SITE LEFT SHOULDER #20G. ORIENTED PATIENT TO UNIT AND STAFF. CALL LIGHT WITHIN REACH. WILL CONTINUE TO MONITOR.
[2018-05-09 22:36] LABS: APPEARANCE,URINE Slightly Cloudy (CLEAR); BILIRUBIN,URINE SMALL (NEGATIVE); BLOOD, URINE Negative Ery/uL (NEGATIVE); COLOR,URINE Amber (YELLOW); KETONES,URINE Negative (NEGATIVE); LEUKOCYTE ESTERASE ,URINE Negative (NEGATIVE); NITRITE, URINE Positive (NEGATIVE); PROTEIN,URINE 30 mg/dl (NEGATIVE); UGLUCOSE Negative (NEGATIVE)
[2018-05-09] MEDS ORDERED: ACETAMINOPHEN 325 MG TABLET PO PRN (23:00)
[2018-05-09 23:08] LABS: RBC,URINE 0-2 /HPF (0-2)
[2018-05-09 23:09] LABS: BACTERIA,URINE Many /HPF (None Seen); SQUAMOUS EPITHELIAL CELL,UR Few /HPF (None Seen)
[2018-05-09] MEDS ORDERED: PIPERACILLIN /TAZOBACTAM 3.375 G VIAL IV ONE (23:52)
[2018-05-10] MEDS: PIPERACILLIN /TAZOBACTAM 3.375 G in IV D5W 50 ML IV SCH ×4 (00:11→17:20)
--- NOTE | 2018-05-10 00:12 | NUR ---
PARALEGAL LEGAL SECRETARY NOTES MEDICATION ZOSYN 3.375G WAS GIVEN TO PT, MANUAL BARCODE USED. MEDICATION WAS NEW ORDER AND PHARMACY WAS ALREADY CLOSED. MEDICATION WAS RECEIVED FROM CHARGE NURSE AND GIVEN.
--- NOTE | 2018-05-10 02:30 | NUR ---
RN INITIAL NOTES: RECEIVED REPORT FROM ROYA BARRIENTOS, PT IN BED, AWAKE, A/O X3 ON 2L OXYGEN VIA NC, RESPIRATION EVEN AND UNLABORED, C/O 8/10 GENERALIZED PAIN MOSTLY ON BILATERAL LEGS, STATED HE FELL. SKIN ASSESSMENT PERFORMED, PLEASE SEE SKIN LOG FOR DETAILS. IV ACCESS ON LEFT SHOULDER AREA, G 20 PATENT AND FLUSHING WELL, ON HL. WOUND CARE PERFORMED. BLE OFFLOADED. ORIENTED PT TO UNIT POLICY AND HOURLY ROUNDING. PT UPSET HE'S BEEN WAITING FOR HIS MORPHINE, INFORMED PT PREVIOUS RN CONTACTED MD AWAITING CALL BACK, WILL PLACE ANOTHER CALL. VS TAKEN AND RECORDED. SAFETY PRECAUTIONS FOR FALL INITIATED, CALL LIGHT IN REACH, WILL CONTINUE MONITORING PT.
--- NOTE | 2018-05-10 02:35 | NUR ---
RN NOTES: PT ON TELE MONITORING SINUS RUHYTHM TO SINUS TACH HR RANGING HIGH 90'S TO 112
--- NOTE | 2018-05-10 03:23 | NUR ---
RN NOTES: SPOKED WITH MD GERIATRIC NURSE PRACTITIONER, RELAYED PT'S COMPLAIN OF PAIN, 09/16 ON BLE, PER MD TO GIVE NORCO 5/325 MG TAB PO Q4HRS PRN FOR PAIN
[2018-05-10 03:25] VITALS: BP 124/91
[2018-05-10] MEDS: HYDROCODONE/APAP 5/325MG 1 EACH TABLET PO PRN ×3 (03:42→20:57)
--- NOTE | 2018-05-10 03:43 | NUR ---
PRN NORCO: PT C/O 07/17 BILATERAL LEG PAIN REQUESTING FOR PAIN MEDICATION, PRN NORCO 5/325 MG TAB PO ADMINISTERED AT THIS TIME, WILL CONTINUE TO MONITOR AND REASSESS PT
[2018-05-10 04:00] VITALS: BP 122/84
[2018-05-10] MEDS ORDERED: PIPERACILLIN /TAZOBACTAM 3.375 G VIAL IV ONE (04:49)
[2018-05-10] MEDS: GABAPENTIN 300 MG CAPSULE PO SCH ×3 (05:18→20:20)
[2018-05-10] MEDS: ONDANSETRON HCL/PF 4 MG/2 ML VIAL IVP PRN (05:26)
--- NOTE | 2018-05-10 05:26 | NUR ---
PRN ZOFRAN: PT VOMITED TWICE, MOSTLY SALIVA AND FLUIDS, PRN ZOFRAN 4MG IVP ADMINISTERED AT THIS TIME, WILL CONTINUE TO MONITOR PT
--- NOTE | 2018-05-10 05:40 | NUR ---
RN NOTES: REFUSED IV REINSERTION, EDUCATION PROVIDED TO THE PT,PT STATED TO GIVE THE MEDICINE NOW AND LET HIM SLEEP, ANOTHER RN AND SUPERVISOR ASSEMBLY STOCK WITNESS, BOTH PRESENT AT BED SIDE, ALSO REFUSED WOUND DRESSING
--- NOTE | 2018-05-10 06:14 | NUR ---
RN NOTES: OFFERED AGAIN TO RESTART NEW IV, BUT PT YELLED AND REFUSED, STATED TO LEAVE HIM ALONE AND LET HIM SLEEP, STATED HE WILL AGREE TO DO REINSERTION LATER IN THE MORNING. EDUCATION PROVIDED TO THE PT. TUNNELLER MADE AWARE OF PT'S REFUSAL
--- NOTE | 2018-05-10 06:30 | NUR ---
RN NOTES: PT REFUSED BLOOD DRAW FOR AM LABS, INSTRUCTED FIELD COIL WINDER TO COME BACK AFTER BREAKFAST AND OFFERED AGAIN
--- NOTE | 2018-05-10 07:31 | NUR ---
RN CLOSING NOTES PATIENT IS IN BED, AWAKE. PATIENT IS A/O X4. PATIENT HAS NO SIGNS OF RESPIRATORY DISTRESS. IV SITE PATENT AND INTACT. URINAL WITHIN REACH. SAFETY PRECAUTIONS IMPLEMENTED. CALL LIGHT WITHIN REACH. WILL ENDORSE TO ONCOMING AM RN.
--- NOTE | 2018-05-10 07:45 | NUR ---
Tele/RN - Assessment Patient is alert and oriented x 4, afebrile, c/o left leg constant burning pain, [place] 1 tab was given with relief, stable on room air, tele shows SR. Saline lock on the left shoulder is patent and intact. Skin noted with multiple open wounds on BLE, scabs on BUE/BLE, closed blisters on right knee and left foot, pending wound consult. Patient independent with bed mobility. All needs attended. Will continue with current medical management.
[2018-05-10 08:00] VITALS: BP 116/67
[2018-05-10] MEDS: NICOTINE PATCH (21MG) 21 MG PATCH.TD24 TD SCH (08:04)
[2018-05-10] MEDS: PANTOPRAZOLE 40 MG TABLET.DR PO SCH ×2 (08:05→17:18)
[2018-05-10] MEDS: CARVEDILOL 3.125 MG TABLET PO SCH ×2 (08:05→17:19)
[2018-05-10] MEDS: ASPIRIN 81 MG TAB.CHEW PO SCH (08:06)
--- NOTE | 2018-05-10 08:10 | NUR ---
Tele/RN - Md Rounds Seen and examined by Dr. Amaral with orders.
[2018-05-10] MEDS ORDERED: FEE PK DOSING 1 MIN EA MC ONE (08:22)
[2018-05-10 08:57] LABS: BASOPHILS # (AUTO) 0.1 /CMM (0.0-0.2); BASOPHILS % (AUTO) 0.5 % (0.0-2.0); EOSINOPHILS % (AUTO) 0.2 % (0.0-6.0); HEMATOCRIT 29 % (39-51); HEMOGLOBIN 9.2 g/dL (13.5-17.5); LYMPHOCYTES % (AUTO) 7.5 % (20.0-44.0); MEAN CORPUSCULAR HGB CONC 31 g/dl (31.0-36.0); MEAN CORPUSCULAR VOLUME 84 fL (80-96); MONOCYTES # (AUTO) 1.1 /CMM (0.1-1.30); MONOCYTES % (AUTO) 8.7 % (2.0-12.0); NEUTROPHILS # (AUTO) 10.5 /CMM (1.8-8.9); NEUTROPHILS % (AUTO) 83.1 % (43.0-81.0); PLATELET COUNT (AUTO) 239 /CMM (150-450); RED BLOOD CELL COUNT(AUTO) 3.48 MIL/uL (4.5-6.0); WHITE BLOOD COUNT (AUTO) 12.6 K/uL (4.3-11.0)
[2018-05-10] MEDS ORDERED: FUROSEMIDE 40 MG/4 ML VIAL IV SCH (09:00)
[2018-05-10 09:14] LABS: ALBUMIN 2.9 g/dL (3.4-5.0); BILIRUBIN,TOTAL 2.9 mg/dL (0.2-1.0); CALCIUM, SERUM 8.8 mg/dL (8.5-10.1); CREATININE 1.5 mg/dL (0.6-1.3); MAGNESIUM 1.6 mg/dL (1.8-2.4); PHOSPHORUS 3.7 mg/dL (2.5-4.9); POTASSIUM 4.9 mmol/L (3.5-5.1); TOTAL PROTEIN, SERUM 7.4 g/dL (6.4-8.2)
[2018-05-10] MEDS ORDERED: BUMETANIDE INJ 8 MG in IV NS 0.9% 48 ML IV ONE (09:30)
[2018-05-10] MEDS: VANCOMYCIN 1 GM in IV D5W 250 ML IV SCH ×2 (09:45→20:21)
[2018-05-10 09:46] LABS: THYROID STIMULATING HORMONE 5.792 uIU/mL (0.358-3.74)
--- NOTE | 2018-05-10 11:17 | NUR ---
Social service consult requested by Dr. Johnson for homelessness. Pt. is a 62 year old male who was admitted to [facility] for severe sepsis and CHF. SW met with pt. bedside. SW is familiar with pt. from a previous admission in Mar, 2018. Pt. is alert and oriented x 4. Pt. had his eyes closed throughout the entire assessment. Pt. was cooperative with SW. Pt. appears disheveled. Pt. states he is homeless and stays with friends here and there. Pt. states he has depression and anxiety since his three years ago. Pt. is not taking any psychotropic medications at this time. Pt. denies suicidal and homicidal ideations and visual/auditory hallucinations at this time. Pt. states he hasn't had an alcoholic drink since December 11, 2017. Pt. drink of choice was beer. Pt. denies any drug use. Pt. states he smokes marijuana every once in a while because it helps him relax and sleep. Pt. smokes 2 to 3 cigarettes per day. Pt. states he has family support when needed. Pt. works as an [employer] worker. Pt. states he is open to taking [place] [facility] referrals upon discharge. No other social service needs are requested at this time. SW to give pt. referrals upon discharge.
--- NOTE | 2018-05-10 11:50 | NUR ---
MS/RN - MD fletcher Seen by Dr. Shaw for bilateral lower extremities with multiple wounds. Md with order to obtain consent for left lower extremity wound debridement.
--- NOTE | 2018-05-10 12:15 | NUR ---
MS/RN - LLE wound debridement Patient signed the consent for left lower extremity wound debridement. Dr. Shaw performed the procedure at bedside. Patient tolerated procedure well. Wound treatment done as ordered.
--- NOTE | 2018-05-10 14:04 | NUR ---
INITIAL ECHO SHOWED EF 20-25%~. ADVISED LUIS ALFREDO (RN), DARIEL (CHARGE), AND DR. MENDEZ OF PRELIM RESULTS.
--- NOTE | 2018-05-10 14:45 | NUR ---
MS/RN - Notes Patient c/o BLE burning pain, [place] 1 tab given, continue to elevate BLE on pillows. Will reassess for effectiveness of the medication.
[2018-05-10 16:00] VITALS: BP 96/66
[2018-05-10] MEDS: NEOMY SULF/BACITRAC ZN/POLY 15 GM TUBE TP SCH (17:20)
--- NOTE | 2018-05-10 18:15 | NUR ---
MS/RN - End of shift summary Patient resting comfortably, stable on room air, in no acute distress, on Bumex drip at 10 ml/hr infusing well on the right wrist with no signs of infiltration, diuresing well. Pending venous and arterial doppler. Will endorse to night nurse for continuity of care.
--- NOTE | 2018-05-10 19:05 | NUR ---
MS RN NOTES RECEIVED PT IN BED AWAKE AND ABLE TO MAKE NEEDS KNOWN. PT A/O X4. WITH RSHOULDER 20G, PATENT AND INTACT, SL, ALSO WITH RWRIST 22G, PATENT AND INTACT, SL. SKIN WITH MULTIBLE WOUNDS ON BLE WELL SCABS ON BLE/BLE. PT BREATHING EVEN AND UNLABORED WITH NO S/S OF ACUTE DISTRESS OR SOB NOTED. NO COMPLAINTS OF PAIN AT THIS TIME. CALL LIGHT WITHIN REACH. WILL CONTINUE TO MONITOR.
[2018-05-10 20:00] VITALS: BP 100/68
[2018-05-11] MEDS: PIPERACILLIN /TAZOBACTAM 3.375 G in IV D5W 50 ML IV SCH ×5 (00:35→23:50)
[2018-05-11] MEDS: HYDROCODONE/APAP 5/325MG 1 EACH TABLET PO PRN ×3 (03:56→21:11)
[2018-05-11] MEDS: GABAPENTIN 300 MG CAPSULE PO SCH ×3 (05:21→21:10)
--- NOTE | 2018-05-11 07:06 | NUR ---
MS RN NOTES PT IN BED SLEEPING BUT EASILY AWOKEN VERBALLY OR BY TOUCH. PT A/O X4 AND ABLE TO MAKE NEEDS KNOWN. WITH RSHOULDER 20G, PATENT AND INTACT, SL, ALSO WITH RWRIST 22G, PATENT AND INTACT, SL. SKIN WITH MULTIPLEPT BREATHING EVEN AND UNLABORED WITH NO S/S OF ACUTE DISTRESS OR SOB NOTED THROUGHOUT SHIFT. NORCO GIVEN X2 FOR PAIN THROUGHOUT SHIFT. NO COMPLAINTS OF PAIN AT THIS TIME. CALL LIGHT WITHIN REACH. WILL ENDORSE TO ONCOMING NURSE FOR MUKUL.
--- NOTE | 2018-05-11 07:46 | NUR ---
M/S RN NOTES PATIENT RECEIVED IN BED RESTING. NO RESPIRATORY DISTRESS NOTED. ALERT AND ORIENTED X 4. SKIN WARM TO TOUCH. IV ON LT SHOULDER #20G AND RT WRIST #20G INTACT AND PATENT, NO REDNESS OR INFILTRATION. BED LOCKED AND CALL LIGHT WITHIN REACH.
--- NOTE | 2018-05-11 07:52 | NUR ---
WOUND CARE CONSULT WOUND CARE RECEIVED CONSULT FOR WOUNDS THROUGHOUT BODY. WOUND CARE WILL DEFER CONSULT AND TREATMENT PLANS TO PLASTIC SURGICAL TEAM INCLUDING DPM DR BLANCO THEY ARE ALL FOLLOWING THIS PATIENT. PATIENT WITH ERIC AT 16, ALL PRESSURE [facility] PREVENTION MEASURES ARE NOTED TO BE IN PLACE. WILL SEE PRN.
[2018-05-11 08:00] VITALS: BP 113/62
[2018-05-11 08:16] LABS: BASOPHILS % (AUTO) 0.5 % (0.0-2.0); EOSINOPHILS % (AUTO) 0.7 % (0.0-6.0); HEMATOCRIT 27 % (39-51); HEMOGLOBIN 8.9 g/dL (13.5-17.5); LYMPHOCYTES # (AUTO) 0.9 /CMM (0.8-4.8); LYMPHOCYTES % (AUTO) 8.8 % (20.0-44.0); MEAN CORPUSCULAR HGB CONC 33 g/dl (31.0-36.0); MEAN CORPUSCULAR VOLUME 82 fL (80-96); MONOCYTES # (AUTO) 0.8 /CMM (0.1-1.30); MONOCYTES % (AUTO) 8.1 % (2.0-12.0); NEUTROPHILS # (AUTO) 8.5 /CMM (1.8-8.9); NEUTROPHILS % (AUTO) 81.9 % (43.0-81.0); PLATELET COUNT (AUTO) 190 /CMM (150-450); WHITE BLOOD COUNT (AUTO) 10.4 K/uL (4.3-11.0)
[2018-05-11] MEDS: NICOTINE PATCH (21MG) 21 MG PATCH.TD24 TD SCH (08:16)
[2018-05-11] MEDS: ASPIRIN 81 MG TAB.CHEW PO SCH (08:16)
[2018-05-11] MEDS: CARVEDILOL 3.125 MG TABLET PO SCH ×2 (08:16→17:13)
[2018-05-11] MEDS: PANTOPRAZOLE 40 MG TABLET.DR PO SCH ×2 (08:16→16:15)
[2018-05-11] MEDS: NEOMY SULF/BACITRAC ZN/POLY 15 GM TUBE TP SCH (08:18)
[2018-05-11 08:34] LABS: ALBUMIN 2.6 g/dL (3.4-5.0); BILIRUBIN,TOTAL 1.7 mg/dL (0.2-1.0); CALCIUM, SERUM 8.1 mg/dL (8.5-10.1); CREATININE 1.4 mg/dL (0.6-1.3); MAGNESIUM 1.4 mg/dL (1.8-2.4); PHOSPHORUS 3.3 mg/dL (2.5-4.9); TOTAL PROTEIN, SERUM 6.7 g/dL (6.4-8.2)
[2018-05-11 08:47] LABS: POTASSIUM 2.7 mmol/L (3.5-5.1)
--- NOTE | 2018-05-11 08:55 | NUR ---
MS/RN - Critical labs Labs reviewed, noted with lactic acid 2.1; potassium 2.7, Addendum: 05/11/18 at 0857 by LUIS ALFREDO MATTHEWS RN MS/RN - Critical labs Labs reviewed, noted with lactic acid 2.1, potassium 2.7, and magnesium 1.4, notified Dr. Amaral, awaiting for orders.
[2018-05-11] MEDS: VANCOMYCIN 1 GM in IV D5W 250 ML IV SCH (08:59)
--- NOTE | 2018-05-11 09:38 | NUR ---
MS/RN - Notes Per Dr. Amaral, notify pharmacist to do replacement protocol for magnesium and potassium. Spoke with Joyce pharmacist.
[2018-05-11] MEDS ORDERED: METOLAZONE 2.5 MG TABLET PO SCH (10:30)
[2018-05-11] MEDS: POTASSIUM CHLORIDE 20 MEQ TAB.PRT.SR PO SCH ×5 (10:58→15:23)
[2018-05-11] MEDS: Magnesium 1GM/D5W 100ML PREMIX 100 ML IV SCH ×2 (11:01→12:12)
--- NOTE | 2018-05-11 11:45 | NUR ---
VANI met with pt. bedside again to discuss usp placement. Pt. declined stating he is not going to go to [facility]. Pt. did accept homeless usp resources which include food [facility], transitional housing, health clinics, etc. Homeless patient waiver form was placed in pt's chart and needs to be signed by pt. upon discharge. VANI updated pt's RN regarding pt's discharge plan. VANI also informed correctional casework specialist Odalys Lazcano regarding pt. needing a walker.
[2018-05-11] MEDS: SOD FERRIC GLUC 125 MG in IV NS 0.9% 100 ML IV SCH (13:54)
[2018-05-11 14:29] LABS: ALANINE AMINOTRANSFERASE 31 U/L (12-78); ALBUMIN 2.6 g/dL (3.4-5.0); ALKALINE PHOSPHATASE 92 U/L (46-116); ASPARTATE AMINOTRANSFERASE 39 U/L (15-37); BILIRUBIN,TOTAL 1.7 mg/dL (0.2-1.0); TOTAL PROTEIN, SERUM 6.7 g/dL (6.4-8.2)
[2018-05-11] MEDS: FUROSEMIDE 100 MG/10 ML VIAL IV SCH ×3 (15:23→23:30)
[2018-05-11 16:00] VITALS: BP 113/68
[2018-05-11] MEDS: LACTOBACILLUS RHAMNOSUS GG 1 EACH CAP.SPRINK PO SCH (16:15)
--- NOTE | 2018-05-11 18:18 | NUR ---
M/S RN NOTES PATIENT RESTING IN BED, NO RESPIRATORY DISTRESS NOTED, BREATHING EVEN AND UNLABORED. PATIENT'S IV INTACT AND PATENT ON THE LEFT HAND #20G, MIDLINE INSERTION ORDERED TODAY ON THE RIGHT ARM, PATENT AND INFUSING WELL. PATIENT'S WOUND CARE TREATMENT DONE. ALL NEW ORDERS IMPLEMENTED AND ALL NEEDS ATTENDED. WILL ENDORSE TO ONCOMING NURSE.
--- NOTE | 2018-05-11 19:45 | NUR ---
MS VI NOTES RECEIVED REPORT FROM AM NURSE LUIS ALFREDO AND SEEN PT WATCHING TV AND EATING HIS DINNER .NO SOB NOTED. LEFT WRIST HEPLOCK AND RIGHT UPPER MIDLINE PATENT AND INTACT. DRESSING ON HIS LLE WOUND DRY AND INTACT. KEPT HIM WARM AND COMFORTABLE AT ALL TIMES. ENCOURAGE HIM TO USE THE CALL LIGHT IF HE NEEDS SOME HELP OR NEEDS NURSE. PLACE CALL LIGHT AT REACH. WILL CONTINUE MONITORING.
[2018-05-11 20:00] VITALS: BP 104/72
--- NOTE | 2018-05-11 21:11 | NUR ---
MS DOUGHNUT GLAZIER NOTES PAIN MGT. ROUTINE MED GIVEN WELL HIS NORCO TABLET FOR HIS LEG PAIN 10/17. VANCOMYCIN WILL HUNG BY ANOTHER NURSE ORDERED .
[2018-05-11] MEDS: VANCOMYCIN 0.75 GM in IV D5W 250 ML IV SCH (21:20)
--- NOTE | 2018-05-11 23:41 | NUR ---
VI NOTES LASIX HOLD FOR NOW BECAUSE OF OF LOW BLOOD PRESSURE. 95/73 , HEART RATE 70, RESP 18, TEMP 97.1, O2 SAT 92 %. PT NO SIGNS OF ANY SOB NOTED AT THIS TIME. SLEEPING COMFORTABLY IN BED WITHOUT ANY ACUTE DISTRESS NOTED. CHARGE NURSE MONICA AWARE. Addendum: 05/12/18 at 0055 by CASPER NINA LVN MD ELDRIDGE. ( DR GARDNER)
--- NOTE | 2018-05-12 02:00 | NUR ---
FLARING MACHINE OPERATOR NOTES PT SLEEPING COMFORTABLY IN BED WITHOUT ANY DISCOMFORT NOTED.
--- NOTE | 2018-05-12 05:01 | NUR ---
MS WORD PROCESSING MACHINE OPERATOR NOTES PT WOKE AND COMPLAINING OF LEG PAIN AND BACK PAIN. NORCO TABLET GIVEN WELL HIS NEURONTIN. LIGHT SNACKS GIVEN PER PT REQUESTED.
[2018-05-12] MEDS: GABAPENTIN 300 MG CAPSULE PO SCH ×3 (05:04→21:49)
[2018-05-12] MEDS: HYDROCODONE/APAP 5/325MG 1 EACH TABLET PO PRN ×3 (05:07→23:38)
[2018-05-12] MEDS: PIPERACILLIN /TAZOBACTAM 3.375 G in IV D5W 50 ML IV SCH ×2 (06:12→11:26)
[2018-05-12 06:59] LABS: BASOPHILS % (AUTO) 0.4 % (0.0-2.0); EOSINOPHILS % (AUTO) 0.6 % (0.0-6.0); HEMATOCRIT 28 % (39-51); HEMOGLOBIN 9.1 g/dL (13.5-17.5); LYMPHOCYTES # (AUTO) 0.7 /CMM (0.8-4.8); LYMPHOCYTES % (AUTO) 6.3 % (20.0-44.0); MEAN CORPUSCULAR HGB CONC 33 g/dl (31.0-36.0); MEAN CORPUSCULAR VOLUME 83 fL (80-96); MONOCYTES # (AUTO) 0.7 /CMM (0.1-1.30); MONOCYTES % (AUTO) 6.7 % (2.0-12.0); NEUTROPHILS # (AUTO) 9.3 /CMM (1.8-8.9); PLATELET COUNT (AUTO) 173 /CMM (150-450); RED BLOOD CELL COUNT(AUTO) 3.35 MIL/uL (4.5-6.0); WHITE BLOOD COUNT (AUTO) 10.8 K/uL (4.3-11.0)
--- NOTE | 2018-05-12 07:21 | NUR ---
MS CASINO CAGE CASHIER CLOSING NOTES PT RESTING COMFORTABLY IN BED WITHOUT ANY ACUTE DISTRESS NOTED. STABLE GUS THE NIGHT AND SLEPT WELL. PT STATES "THANK YOU FOR ALL YOUR HELPED". ALL NEEDS MET AND ALL DUE MEDS GIVEN. MORNING CARE ALSO DONE WITH THE HELPED OF ANGEL Varela KEPT HIM WARM AND COMFORTABLE AT ALL TIMES. PLACE CALL LIGHT AT REACH. ENDORSE TO AM NURSE SINGH /RN FOR CONTINUITY OF CARE.
[2018-05-12 07:32] LABS: ALBUMIN 2.6 g/dL (3.4-5.0); BILIRUBIN,TOTAL 1.3 mg/dL (0.2-1.0); CALCIUM, SERUM 8.1 mg/dL (8.5-10.1); CREATININE 1.7 mg/dL (0.6-1.3); MAGNESIUM 1.5 mg/dL (1.8-2.4); PHOSPHORUS 3.9 mg/dL (2.5-4.9)
[2018-05-12 07:39] LABS: ALBUMIN 2.6 g/dL (3.4-5.0); BILIRUBIN,DIRECT 0.7 mg/dL (0.0-0.2); BILIRUBIN,TOTAL 1.2 mg/dL (0.2-1.0); TOTAL PROTEIN, SERUM 7.1 g/dL (6.4-8.2)
[2018-05-12 07:41] LABS: POTASSIUM 2.7 mmol/L (3.5-5.1)
--- NOTE | 2018-05-12 07:50 | NUR ---
RN OPENING NOTE PT WAS RECEIVED IN BED AT LOWEST AND LOCKED POSITION WITH SIDE RAILS UP X2, A/O X4, BREATHING EVEN AND UNLABORED WITH NO S/S OF PAIN OR DISTRESS NOTED, J CARLOS MIDLINE IS PATENT AND INTACT, SAFETY PRECAUTIONS IN PLACE, CALL LIGHT WITHIN REACH, WILL MONITOR ACCORDINGLY
[2018-05-12] MEDS: ASPIRIN 81 MG TAB.CHEW PO SCH (08:53)
[2018-05-12] MEDS: LACTOBACILLUS RHAMNOSUS GG 1 EACH CAP.SPRINK PO SCH ×2 (08:53→16:40)
[2018-05-12] MEDS: POTASSIUM CHLORIDE 20 MEQ TAB.PRT.SR PO SCH ×5 (08:53→13:14)
[2018-05-12] MEDS: CARVEDILOL 3.125 MG TABLET PO SCH ×2 (08:54→17:14)
[2018-05-12] MEDS: PANTOPRAZOLE 40 MG TABLET.DR PO SCH ×2 (08:55→16:40)
[2018-05-12] MEDS: NICOTINE PATCH (21MG) 21 MG PATCH.TD24 TD SCH (08:55)
[2018-05-12] MEDS: NEOMY SULF/BACITRAC ZN/POLY 15 GM TUBE TP SCH (08:56)
[2018-05-12] MEDS: Magnesium 1GM/D5W 100ML PREMIX 100 ML IV SCH ×2 (08:56→10:04)
[2018-05-12] MEDS: VANCOMYCIN 0.75 GM in IV D5W 250 ML IV SCH ×2 (08:56→21:00)
--- NOTE | 2018-05-12 12:38 | NUR ---
RN NOTE WOUND DRESSING CHANGED BY DR. KENNEY, WILL MONITOR ACCORDINGLY
--- NOTE | 2018-05-12 13:00 | NUR ---
RN NOTE POTASSIUM AND MAG REPLACED
[2018-05-12] MEDS: SOD FERRIC GLUC 125 MG in IV NS 0.9% 100 ML IV SCH (13:46)
[2018-05-12 15:13] LABS: OCCULT BLOOD STOOL NEGATIVE (NEGATIVE)
[2018-05-12] MEDS: MEROPENEM 1 G in IV NS 0.9% 100 ML IV SCH (16:31)
[2018-05-12] MEDS: FUROSEMIDE 100 MG/10 ML VIAL IV SCH ×2 (16:42→21:49)
--- NOTE | 2018-05-12 18:48 | NUR ---
RN CLOSING NOTE PT IN BED AT LOWEST AND LOCKED POSITION WITH SIDE RAILS UP X2, A/O X4, BREATHING EVEN AND UNLABORED, NO CURRENT COMPLAINTS OF PAIN OR DISTRESS, IV ARE PATENT AND INTACT, SAFETY PRECAUTIONS IN PLACE, CALL LIGHT WITHIN REACH, ALL NEEDS ATTENDED TO, WILL ENDORSE TO ONCOMING CLINICAL NURSE RN FOR MUKUL.
--- NOTE | 2018-05-12 19:20 | NUR ---
MS/RN OPENING NOTES PT RECEIVED AWAKE, SITTING UP IN BED. ON ROOM AIR, BREATHING EVEN AND UNLABORED. DENIES SOB AND PAIN AT THIS TIME. IN NO ACUTE DISTRESS. J CARLOS MIDLINE PATENT AND INTACT. BED IN LOW/LOCKED POSITION WITH CALL LIGHT IN REACH. BILATERAL UPPER SIDE RAILS IN PLACE. BED ALARM ON FOR SAFETY. WILL CONTINUE TO MONITOR
[2018-05-12 20:00] VITALS: BP 101/71
[2018-05-12 21:27] VITALS: BP 101/71
--- NOTE | 2018-05-12 22:03 | NUR ---
MS/RN NOTES 1999 VANCO TROUGH=28. SCHEDULED 2100 VANCO DOSE HELD AND NOTIFIED [facility]
[2018-05-13] MEDS: FUROSEMIDE 100 MG/10 ML VIAL IV SCH (01:34)
--- NOTE | 2018-05-13 01:35 | NUR ---
MS/RN NOTES ADMINISTERED SCHEDULED LASIX. BP 107/67, HR 68. URINAL REMAINS AT BEDSIDE.
[2018-05-13] MEDS: MEROPENEM 1 G in IV NS 0.9% 100 ML IV SCH ×2 (04:51→16:24)
[2018-05-13] MEDS: GABAPENTIN 300 MG CAPSULE PO SCH ×3 (06:06→21:11)
--- NOTE | 2018-05-13 06:55 | NUR ---
MS/RN CLOSING NOTES PT AWAKE, SITTING UP IN BED. ON ROOM AIR, BREATHING EVEN AND UNLABORED. DENIES SOB AND PAIN AT THIS TIME. J CARLOS MIDLINE PATENT AND INTACT. NO SIGNIFICANT CHANGES OVERNIGHT. ALL NEEDS MET. TURNED/REPOSITIONED Q2H. ALL NEEDS MET. BED REMAINS IN LOW/LOCKED POSITION WITH CALL LIGHT IN REACH. BILATERAL UPPER SIDE RAILS IN PLACE. WILL ENDORSE TO DAY SHIFT RN MUKUL.
[2018-05-13 07:06] LABS: BASOPHILS % (AUTO) 0.3 % (0.0-2.0); EOSINOPHILS % (AUTO) 0.4 % (0.0-6.0); HEMATOCRIT 26 % (39-51); HEMOGLOBIN 8.6 g/dL (13.5-17.5); LYMPHOCYTES # (AUTO) 0.6 /CMM (0.8-4.8); LYMPHOCYTES % (AUTO) 5.6 % (20.0-44.0); MEAN CORPUSCULAR HGB CONC 33 g/dl (31.0-36.0); MEAN CORPUSCULAR VOLUME 82 fL (80-96); MONOCYTES # (AUTO) 0.6 /CMM (0.1-1.30); MONOCYTES % (AUTO) 6.1 % (2.0-12.0); NEUTROPHILS # (AUTO) 8.7 /CMM (1.8-8.9); NEUTROPHILS % (AUTO) 87.6 % (43.0-81.0); PLATELET COUNT (AUTO) 147 /CMM (150-450); RED BLOOD CELL COUNT(AUTO) 3.19 MIL/uL (4.5-6.0); WHITE BLOOD COUNT (AUTO) 9.9 K/uL (4.3-11.0)
[2018-05-13 07:12] LABS: ALBUMIN 2.5 g/dL (3.4-5.0); BILIRUBIN,TOTAL 1.1 mg/dL (0.2-1.0); CALCIUM, SERUM 8.1 mg/dL (8.5-10.1); CREATININE 1.5 mg/dL (0.6-1.3); MAGNESIUM 1.5 mg/dL (1.8-2.4); PHOSPHORUS 3.2 mg/dL (2.5-4.9); TOTAL PROTEIN, SERUM 6.7 g/dL (6.4-8.2)
[2018-05-13 07:16] LABS: POTASSIUM 2.1 mmol/L (3.5-5.1)
--- NOTE | 2018-05-13 07:34 | NUR ---
CRITICAL RESULT POTASSIUM 2.1 DAY SHIFT RN AND DR. MENDEZ AWARE
--- NOTE | 2018-05-13 07:49 | NUR ---
MS RN OPENING NOTES RECEIVED PATIENT IN STABLE CONDITION. IN NO APPARENT DISTRESS. BEDSIDE RAILS ARE UPX2. BED IS LOCKED AND LOWERED. CALL LIGHT IS WITHIN REACH. IV LINE IS INTACT AND PATENT. WILL CONTINUE TO MONITOR PATIENT.
[2018-05-13 08:00] VITALS: BP 118/81
[2018-05-13] MEDS: POTASSIUM CHLORIDE 20 MEQ TAB.PRT.SR PO SCH ×7 (08:36→14:25)
[2018-05-13] MEDS: ASPIRIN 81 MG TAB.CHEW PO SCH (08:37)
[2018-05-13] MEDS: LACTOBACILLUS RHAMNOSUS GG 1 EACH CAP.SPRINK PO SCH ×2 (08:37→16:24)
[2018-05-13] MEDS: PANTOPRAZOLE 40 MG TABLET.DR PO SCH ×2 (08:37→16:24)
[2018-05-13] MEDS: CARVEDILOL 3.125 MG TABLET PO SCH ×2 (08:38→17:10)
[2018-05-13] MEDS: HYDROCODONE/APAP 5/325MG 1 EACH TABLET PO PRN ×2 (08:46→19:29)
[2018-05-13] MEDS: NICOTINE PATCH (21MG) 21 MG PATCH.TD24 TD SCH (08:47)
[2018-05-13] MEDS: VANCOMYCIN 0.75 GM in IV D5W 250 ML IV SCH (08:49)
--- NOTE | 2018-05-13 08:50 | NUR ---
NON ADMINISTERED VANCOMYCIN DUE TO LAST VANCO THROUGH LEVEL: 28.
[2018-05-13] MEDS: NEOMY SULF/BACITRAC ZN/POLY 15 GM TUBE TP SCH (09:00)
[2018-05-13] MEDS ORDERED: Magnesium 1GM/D5W 100ML PREMIX 100 ML IV SCH (10:30)
[2018-05-13] MEDS: SOD FERRIC GLUC 125 MG in IV NS 0.9% 100 ML IV SCH (14:25)
[2018-05-13 16:47] VITALS: BP 114/54
--- NOTE | 2018-05-13 18:37 | NUR ---
MS RN CLOSING NOTES PATIENT IS IN STABLE CONDITION. IN NO APPARENT DISTRESS. BEDSIDE RAILS ARE UPX2. BED IS LOCKED AND LOWERED. CALL LIGHT IS WITHIN REACH. IV LINE IS INTACT AND PATENT. ALL NEEDS WERE MET. WILL ENDORSE CARE TO BUNDLE TIER AND LABELER NURSE FOR MUKUL.
--- NOTE | 2018-05-13 19:10 | NUR ---
MS RN NOTE RECEIVED PT IN STABLE CONDITION, A&O X4, ABLE TO MAKE NEEDS KNOWN. NO SIGNS OF SOB OR DISTRESS. NO C/O PAIN. J CARLOS MIDLINE PATENT AND INTACT. ALL CURRENT NEEDS ATTENDED TO. SAFETY MEASURES IN PLACE: BED LOW, LOCKED, UPPER RAILS UP, CALL LIGHT WITHIN REACH, ISOLATION PRECAUTIONS IN PLACE. WILL CONT TO MONITOR.
--- NOTE | 2018-05-13 19:29 | NUR ---
MS RN NOTE PT C/O PAIN 6/10 LOCATED ON LOWER LEGS. PRN NORCO 5-325 MG GIVEN. WILL CONT TO MONITOR.
[2018-05-13 20:00] VITALS: BP 108/63
--- NOTE | 2018-05-13 20:15 | NUR ---
MS RN NOTE PAIN REASSESSED. PT. STATES THAT PAIN IS AT A TOLERABLE NUMBER OF 2/10. WILL CONT TO MONITOR.
[2018-05-13] MEDS ORDERED: VANCOMYCIN 0.75 GM in IV D5W 250 ML IV SCH (21:00)
[2018-05-14] MEDS: MEROPENEM 1 G in IV NS 0.9% 100 ML IV SCH ×2 (04:01→16:37)
[2018-05-14] MEDS: GABAPENTIN 300 MG CAPSULE PO SCH ×3 (04:02→20:37)
[2018-05-14] MEDS: HYDROCODONE/APAP 5/325MG 1 EACH TABLET PO PRN ×3 (06:25→18:32)
--- NOTE | 2018-05-14 06:25 | NUR ---
MS RN NOTE PRN NORCO 5-325 MG GIVEN FOR PAIN 6/10 LOCATED IN LOWER EXTREMITIES. WILL CONT TO MONITOR.
--- NOTE | 2018-05-14 06:30 | NUR ---
MS RN NOTE PT IN STABLE CONDITION, A&O X4, ABLE TO MAKE NEEDS KNOWN. NO SIGNS OF SOB OR DISTRESS. J CARLOS MIDLINE PATENT AND INTACT. ALL CURRENT NEEDS ATTENDED TO. PT. TURNED AND REPOSITIONED Q2H. SAFETY MEASURES IN PLACE: BED LOW, LOCKED, UPPER RAILS UP, CALL LIGHT WITHIN REACH, ISOLATION PRECAUTIONS IN PLACE. WILL CONT TO MONITOR AND ENDORSE TO NEXT SHIFT FOR MUKUL.
[2018-05-14 08:00] VITALS: BP 117/69
--- NOTE | 2018-05-14 08:00 | NUR ---
RN OPENING NOTES Received Patient comfortable and resting in bed. A/O x 4. Breathing even and unlabored in room air. VS stable with no acute signs and symptoms of distress. BP-143/72 HR-70 RR-18 Temp-99.1F O2 Sat 96% on RA. Pain level improved at 7/10. Midline IV on RIGHT UPPER ARM, patent, clean, dry and intact. No redness, swelling nor pain at site. IV flushes well. General edema noted. Elevated upper and lower extremities with pillows. LEFT LOWER EXTREMITY dressing, clean, dry and intact. All scheduled medications administered. Safety precautions in place. Bed locked and kept in low position with side rails up x 2. Call light within reach. Will continue to monitor. Addendum: 05/14/18 at 1319 by ELIZABETH TREADWELL RN Mistaken VS Entry BP-117-69 HR-80 RR-18 Temp 97.5 O2 Sat 98% RA
[2018-05-14 08:10] LABS: BASOPHILS # (AUTO) 0.1 /CMM (0.0-0.2); BASOPHILS % (AUTO) 0.8 % (0.0-2.0); EOSINOPHILS % (AUTO) 0.7 % (0.0-6.0); HEMATOCRIT 28 % (39-51); HEMOGLOBIN 9.1 g/dL (13.5-17.5); LYMPHOCYTES # (AUTO) 0.8 /CMM (0.8-4.8); LYMPHOCYTES % (AUTO) 7.1 % (20.0-44.0); MEAN CORPUSCULAR HGB CONC 33 g/dl (31.0-36.0); MEAN CORPUSCULAR VOLUME 83 fL (80-96); MONOCYTES # (AUTO) 0.8 /CMM (0.1-1.30); MONOCYTES % (AUTO) 7.3 % (2.0-12.0); NEUTROPHILS # (AUTO) 9.5 /CMM (1.8-8.9); NEUTROPHILS % (AUTO) 84.1 % (43.0-81.0); PLATELET COUNT (AUTO) 161 /CMM (150-450); RED BLOOD CELL COUNT(AUTO) 3.33 MIL/uL (4.5-6.0); WHITE BLOOD COUNT (AUTO) 11.3 K/uL (4.3-11.0)
[2018-05-14 08:21] LABS: ALBUMIN 2.5 g/dL (3.4-5.0); BILIRUBIN,TOTAL 0.8 mg/dL (0.2-1.0); CALCIUM, SERUM 8.4 mg/dL (8.5-10.1); CREATININE 1.3 mg/dL (0.6-1.3); MAGNESIUM 1.5 mg/dL (1.8-2.4); PHOSPHORUS 2.3 mg/dL (2.5-4.9); TOTAL PROTEIN, SERUM 6.9 g/dL (6.4-8.2)
[2018-05-14 08:25] LABS: POTASSIUM 2.7 mmol/L (3.5-5.1)
[2018-05-14] MEDS: NICOTINE PATCH (21MG) 21 MG PATCH.TD24 TD SCH (08:30)
[2018-05-14] MEDS: PANTOPRAZOLE 40 MG TABLET.DR PO SCH ×2 (08:30→16:37)
[2018-05-14] MEDS: LACTOBACILLUS RHAMNOSUS GG 1 EACH CAP.SPRINK PO SCH ×2 (08:30→16:38)
[2018-05-14] MEDS: ASPIRIN 81 MG TAB.CHEW PO SCH (08:30)
--- NOTE | 2018-05-14 08:30 | NUR ---
RN NOTES Administered Tylenol 650mg PO PRN per Patients request. Patient stated that [place] 5-325mg given at 0625 effective but states ongoing mild pain on BILATERAL LEGS. Will continue to monitor.
[2018-05-14] MEDS: CARVEDILOL 3.125 MG TABLET PO SCH ×2 (08:31→17:47)
--- NOTE | 2018-05-14 09:30 | NUR ---
RN NOTES Edema noted on RIGHT WRIST/HAND. Pizano watch on RIGHT WRIST removed d/t noted constriction of RIGHT WRIST. Pizano watch placed on bedside table per Patients request.
[2018-05-14] MEDS: Magnesium 1GM/D5W 100ML PREMIX 100 ML IV SCH ×2 (09:37→11:27)
[2018-05-14] MEDS: NEOMY SULF/BACITRAC ZN/POLY 15 GM TUBE TP SCH (09:38)
[2018-05-14] MEDS: POTASSIUM CHLORIDE 20 MEQ TAB.PRT.SR PO SCH ×2 (10:11→11:13)
[2018-05-14] MEDS ORDERED: K PHOS NEUTRAL 250 MG TABLET PO ONE (11:30)
--- NOTE | 2018-05-14 12:58 | NUR ---
RN NOTES Administered [place] 5-325mg PO PRN per Patients request at this time. Patient stated pain level of 9/10 on BILATERAL LEGS. Will continue to monitor.
[2018-05-14] MEDS ORDERED: POTASSIUM CHLORIDE 20 MEQ TAB.PRT.SR PO ONE (14:30)
[2018-05-14 16:00] VITALS: BP 124/62
[2018-05-14] MEDS: SOD FERRIC GLUC 125 MG in IV NS 0.9% 100 ML IV SCH (16:03)
--- NOTE | 2018-05-14 18:32 | NUR ---
RN NOTES Administered [place] 5-325mg PO PRN per Patients request at this time. Patient stated pain level of 9/10 on BILATERAL LEGS. Elevated BILATERAL EXTREMITIES. Patient repositioned, tolerated well. Will continue to monitor.
--- NOTE | 2018-05-14 19:10 | NUR ---
MS RN NOTE RECEIVED PT IN STABLE CONDITION. A&O X4, ABLE TO MAKE NEEDS KNOWN. NO SIGNS OF SOB OR DISTRESS, NO C/O PAIN. PT CURRENTLY WATCHING TV. J CARLOS MIDLINE PATENT AND INTACT. EXTREMITIES ELEVATED. WILL TURN AND REPOSITION Q2H. ALL CURRENT NEEDS MET. SAFETY PRECAUTIONS IN PLACE: BED LOW, LOCKED, UPPER RAILS UP, AND CALL LIGHT WITHIN REACH. WILL CONT TO MONITOR.
--- NOTE | 2018-05-14 19:24 | NUR ---
RN CLOSING NOTES Patient comfortable in bed and watching TV. A/O x 4. Breathing even and unlabored. VS stable with no acute signs and symptoms of distress. Patient reported pain level of 9/10, will endorse to oncoming nurse. Midline IV on RIGHT UPPER ARM, patent, clean, dry and intact. No redness, swelling nor pain at site. IV flushes well. Elevated upper and lower extremities with pillows. LEFT LOWER EXTREMITY dressing, clean, dry and intact. All scheduled medications administered. Safety precautions in place. Bed locked and kept in low position with side rails up x 2. Call light within reach. Will endorse to plan of care to oncoming shift.
[2018-05-14] MEDS ORDERED: Z GUARD REMEDY 2 OZ OINT TP PRN (19:30)
--- NOTE | 2018-05-14 21:00 | NUR ---
MS RN NOTE PT CHANGED D/T BM. PROGRESS SKIN PHOTOS TAKEN, HOWEVER PT REFUSED TO HAVE L LEG AND L FOOT DRESSING TO BE OPENED/PHOTOGRAPHED. PT STATES THAT DRESSING WAS OPENED EARLIER IN THE DAY. RISKS AND BENEFITS MADE AWARE W/ VERBALIZATION OF UNDERSTANDING.
[2018-05-14 21:01] VITALS: BP 101/60
[2018-05-14] MEDS: ONDANSETRON HCL/PF 4 MG/2 ML VIAL IVP PRN (21:24)
--- NOTE | 2018-05-14 21:54 | NUR ---
MS RN NOTE PT REASSESSED, PT NO S/S OF N/V. WILL CONT TO MONITOR.
--- NOTE | 2018-05-14 23:24 | NUR ---
MS BARRIENTOS NOTE ARIANA JONES GIVEN FOR EMESIS X1. WILL CONT TO MONITOR. Addendum: 05/15/18 at 0119 by OPAL PADILLA RN ROBERT GIVEN AT [id number] DAN [id number]
[2018-05-15] MEDS: HYDROCODONE/APAP 5/325MG 1 EACH TABLET PO PRN ×3 (02:24→20:21)
--- NOTE | 2018-05-15 02:24 | NUR ---
MS RN NOTE PRN NORCO 5/325 MG GIVEN FOR PAIN 07/17 LOCATED LLE. WILL CONT TO MONITOR
--- NOTE | 2018-05-15 03:24 | NUR ---
MS RN NOTE PAIN REASSESSED, PT STATES HIS PAIN IS TOLERABLE. WILL CONT TO MONITOR.
[2018-05-15] MEDS: MEROPENEM 1 G in IV NS 0.9% 100 ML IV SCH ×2 (03:37→15:12)
[2018-05-15] MEDS: GABAPENTIN 300 MG CAPSULE PO SCH ×3 (04:01→20:21)
[2018-05-15 06:35] LABS: BASOPHILS # (AUTO) 0.1 /CMM (0.0-0.2); BASOPHILS % (AUTO) 0.7 % (0.0-2.0); EOSINOPHILS % (AUTO) 0.6 % (0.0-6.0); HEMATOCRIT 26 % (39-51); HEMOGLOBIN 8.6 g/dL (13.5-17.5); LYMPHOCYTES % (AUTO) 7.7 % (20.0-44.0); MEAN CORPUSCULAR HGB CONC 32 g/dl (31.0-36.0); MEAN CORPUSCULAR VOLUME 83 fL (80-96); MONOCYTES # (AUTO) 0.9 /CMM (0.1-1.30); MONOCYTES % (AUTO) 6.8 % (2.0-12.0); NEUTROPHILS # (AUTO) 11.1 /CMM (1.8-8.9); NEUTROPHILS % (AUTO) 84.2 % (43.0-81.0); PLATELET COUNT (AUTO) 155 /CMM (150-450); RED BLOOD CELL COUNT(AUTO) 3.18 MIL/uL (4.5-6.0); WHITE BLOOD COUNT (AUTO) 13.2 K/uL (4.3-11.0)
--- NOTE | 2018-05-15 06:38 | NUR ---
MS RN NOTE PT IN STABLE CONDITION. A&O X4, ABLE TO MAKE NEEDS KNOWN. NO SIGNS OF SOB OR DISTRESS, NO C/O PAIN. PT CURRENTLY WATCHING TV. J CARLOS MIDLINE PATENT AND INTACT. EXTREMITIES ELEVATED. PT TURNED AND REPOSITIONED Q2H. ALL CURRENT NEEDS MET. ISOLATION PRECAUTIONS IN PLACE. SAFETY PRECAUTIONS IN PLACE: BED LOW, LOCKED, UPPER RAILS UP, AND CALL LIGHT WITHIN REACH. WILL CONT TO MONITOR AND ENDORSE TO NEXT SHIFT FOR MUKUL.
[2018-05-15 07:06] LABS: ALBUMIN 2.4 g/dL (3.4-5.0); BILIRUBIN,TOTAL 0.9 mg/dL (0.2-1.0); CALCIUM, SERUM 8.5 mg/dL (8.5-10.1); CREATININE 1.3 mg/dL (0.6-1.3); MAGNESIUM 1.8 mg/dL (1.8-2.4); PHOSPHORUS 2.3 mg/dL (2.5-4.9); POTASSIUM 3.2 mmol/L (3.5-5.1); TOTAL PROTEIN, SERUM 6.7 g/dL (6.4-8.2)
[2018-05-15 08:00] VITALS: BP 139/86
[2018-05-15] MEDS: NICOTINE PATCH (21MG) 21 MG PATCH.TD24 TD SCH (08:12)
[2018-05-15] MEDS: PANTOPRAZOLE 40 MG TABLET.DR PO SCH ×2 (08:12→15:32)
[2018-05-15] MEDS: CARVEDILOL 3.125 MG TABLET PO SCH ×2 (08:12→17:02)
[2018-05-15] MEDS: LACTOBACILLUS RHAMNOSUS GG 1 EACH CAP.SPRINK PO SCH ×2 (08:12→17:02)
[2018-05-15] MEDS: ASPIRIN 81 MG TAB.CHEW PO SCH (08:12)
[2018-05-15] MEDS: NEOMY SULF/BACITRAC ZN/POLY 15 GM TUBE TP SCH (08:13)
[2018-05-15] MEDS: POTASSIUM CHLORIDE 20 MEQ TAB.PRT.SR PO SCH ×4 (10:44→14:14)
[2018-05-15] MEDS ORDERED: K PHOS NEUTRAL 250 MG TABLET PO ONE (12:00)
[2018-05-15] MEDS: FUROSEMIDE 100 MG/10 ML VIAL IV SCH ×3 (14:14→23:34)
[2018-05-15] MEDS: SOD FERRIC GLUC 125 MG in IV NS 0.9% 100 ML IV SCH (14:25)
--- NOTE | 2018-05-15 15:43 | NUR ---
RN NOTE ATTEMPTED TO CHANGE PATIENT LLE DRESSING BUT PATIENT REFUSED STATING "I WANT TO SLEEP, LEAVE ME ALONE". PATIENT WAS EDUCATED AND INFORMED OF THE PURPOSE OF THE DRESSING CHANGE BUT HE STILL REFUSED.
[2018-05-15 16:00] VITALS: BP 110/71
--- NOTE | 2018-05-15 19:01 | NUR ---
RN CLOSING NOTE PT IN BED AT LOWEST AND LOCKED POSITION WITH SIDE RAILS UP X2, A/O X4, BREATHING EVEN AND UNLABORED WITH NO S/S OF PAIN OR DISTRESS NOTED, IV IS PATENT AND INTACT, SAFETY PRECAUTIONS IN PLACE, CALL LIGHT WITHIN REACH, WILL ENDORSE TO SUPPORT SPECIALIST RN FOR MUKUL.
--- NOTE | 2018-05-15 19:25 | NUR ---
MS/RN NOTES RECEIVED PT. SITTING UP IN BED. PT. IS AWAKE, ALERT AND ORIENTED X4. BREATHING EVEN AND UNLABORED ON ROOM AIR. NO SOB, RESPIRATORY DISTRESS OR COMPLAINTS OF PAIN NOTED AT THIS TIME. PT. WITH RIGHT UPPER ARM MIDLINE PRESENT, PATENT AND INTACT. PT. WITH LEFT LOWER EXTREMITY DRESSING PRESENT, CLEAN, DRY AND INTACT. PER DAYSHIFT NURSE PT. REFUSED DRESSING CHANGE. WILL ATTEMPT TO PERFORM DRESSING CHANGE. ISOLATION AND SAFETY PRECAUTIONS IMPLEMENTED AND IN PLACE. BED LOCKED AND IN LOWEST POSITION, SIDE RAILS UP X2, CALL LIGHT WITHIN REACH, WILL CONTINUE TO MONITOR.
[2018-05-15 20:00] VITALS: BP 97/59
--- NOTE | 2018-05-15 22:55 | NUR ---
MS/RN NOTES ASSESSED PT. BLOOD PRESSURE AND HEART RATE BEFORE ADMINISTRATION OF SCHEDULED LASIX MEDICATION. PT. CURRENT BP 101/63 HR 76. WILL RECHECK PT. BLOOD PRESSURE AGAIN IN 30 MIN BEFORE ADMINISTERING TO PT. LASIX MEDICATION TO AVOID HYPOTENSION. WILL CONTINUE TO MONITOR.
[2018-05-16] MEDS: HYDROCODONE/APAP 5/325MG 1 EACH TABLET PO PRN ×5 (01:16→21:56)
[2018-05-16] MEDS: MEROPENEM 1 G in IV NS 0.9% 100 ML IV SCH ×3 (05:03→21:56)
[2018-05-16] MEDS: GABAPENTIN 300 MG CAPSULE PO SCH ×3 (05:03→21:56)
--- NOTE | 2018-05-16 06:50 | NUR ---
MS/RN NOTES PT. IS LYING IN BED RESTING. BREATHING EVEN AND UNLABORED ON ROOM AIR. NO SOB, RESPIRATORY DISTRESS OR COMPLAINTS OF PAIN NOTED AT THIS TIME. PT. WITH RIGHT UPPER ARM MIDLINE PRESENT, PATENT AND INTACT. PT. REFUSED DRESSING CHANGE THROUGHOUT SHIFT. ALL PT. NEEDS MET. ISOLATION AND SAFETY PRECAUTIONS IMPLEMENTED AND IN PLACE. BED LOCKED AND IN LOWEST POSITION, SIDE RAILS UP X2, CALL LIGHT WITHIN REACH, WILL ENDORSE TO DAYSHIFT NURSE FOR CONTINUITY OF CARE.
--- NOTE | 2018-05-16 07:30 | NUR ---
RN MS NOTES PT IN BED, ASLEEP, EASILY AROUSABLE, ALERT AND ORIENTED, NO COMPLAINT OF PAIN, RESPIRATIONS NORMAL, CALL LIGHT WITHIN REACH, DRESSING TO LEFT LOWER LEG INTACT AND DRY, NO BLEEDING NOTED, NEEDS ATTENDED.
[2018-05-16 08:00] VITALS: BP 99/62
[2018-05-16] MEDS: CARVEDILOL 3.125 MG TABLET PO SCH (08:00)
[2018-05-16 08:33] LABS: BASOPHILS # (AUTO) 0.1 /CMM (0.0-0.2); BASOPHILS % (AUTO) 0.6 % (0.0-2.0); EOSINOPHILS % (AUTO) 0.8 % (0.0-6.0); HEMATOCRIT 27 % (39-51); HEMOGLOBIN 8.7 g/dL (13.5-17.5); LYMPHOCYTES # (AUTO) 1.2 /CMM (0.8-4.8); LYMPHOCYTES % (AUTO) 7.8 % (20.0-44.0); MEAN CORPUSCULAR HGB CONC 32 g/dl (31.0-36.0); MEAN CORPUSCULAR VOLUME 84 fL (80-96); MONOCYTES # (AUTO) 1.3 /CMM (0.1-1.30); MONOCYTES % (AUTO) 8.6 % (2.0-12.0); NEUTROPHILS # (AUTO) 12.9 /CMM (1.8-8.9); NEUTROPHILS % (AUTO) 82.2 % (43.0-81.0); PLATELET COUNT (AUTO) 160 /CMM (150-450); RED BLOOD CELL COUNT(AUTO) 3.25 MIL/uL (4.5-6.0); WHITE BLOOD COUNT (AUTO) 15.7 K/uL (4.3-11.0)
[2018-05-16] MEDS: ASPIRIN 81 MG TAB.CHEW PO SCH (08:38)
[2018-05-16] MEDS: PANTOPRAZOLE 40 MG TABLET.DR PO SCH ×2 (08:38→15:56)
[2018-05-16] MEDS: NICOTINE PATCH (21MG) 21 MG PATCH.TD24 TD SCH (08:38)
[2018-05-16] MEDS: LACTOBACILLUS RHAMNOSUS GG 1 EACH CAP.SPRINK PO SCH ×2 (08:38→16:20)
[2018-05-16 08:59] LABS: CALCIUM, SERUM 8.6 mg/dL (8.5-10.1); CREATININE 1.1 mg/dL (0.6-1.3); MAGNESIUM 1.6 mg/dL (1.8-2.4); PHOSPHORUS 3.1 mg/dL (2.5-4.9); POTASSIUM 2.9 mmol/L (3.5-5.1)
[2018-05-16] MEDS: Magnesium 1GM/D5W 100ML PREMIX 100 ML IV SCH ×2 (10:45→11:57)
[2018-05-16] MEDS: POTASSIUM CHLORIDE 20 MEQ TAB.PRT.SR PO SCH ×5 (10:46→14:55)
--- NOTE | 2018-05-16 11:29 | NUR ---
RN MS NOTES PT IN BED, AWAKE AND ALERT, PAIN MEDICATION GIVEN FOR PAIN MANAGEMENT, SEEN BY DR. BLANCO, DRESSING CHANGE TO LLE WOUND DONE BY MD, TOLERATED WELL, ALSO SEEN BY PHYSICAL THERAPIST, TOLERATED EXERCISES WELL, CALL LIGHT WITHIN REACH, NEEDS ATTENDED.
--- NOTE | 2018-05-16 13:00 | NUR ---
RN MS NOTES PT ABLE TO URINATE USING URINAL, URINE SPECIMEN SENT TO LAB, NO BLADDER DISCOMFORT NOTED, BLADDER SCAN DONE, 180 ML.
[2018-05-16] MEDS ORDERED: MAGNESIUM OXIDE 400 MG TABLET PO ONE (14:00)
[2018-05-16] MEDS: NEOMY SULF/BACITRAC ZN/POLY 15 GM TUBE TP SCH (15:08)
[2018-05-16 16:00] VITALS: BP 122/75
--- NOTE | 2018-05-16 16:05 | NUR ---
RN MS NOTES LAST DOSE OF KDUR 20 MEQ NON ADMINISTERED, UNABLE TO REMOVE MED FROM OMNICEL, REENTERED AN ORDER FOR 1 DOSE TO COMPLETE 5 DOSES.
[2018-05-16] MEDS ORDERED: POTASSIUM CHLORIDE 20 MEQ TAB.PRT.SR PO ONE (16:30)
--- NOTE | 2018-05-16 18:09 | NUR ---
RN MS NOTES PT IN BED, AWAKE, ALERT AND ORIENTED, PAIN MEDICATION GIVEN FOR LLE PAIN, RESPIRATIONS NORMAL, CALL LIGHT WITHIN REACH, EATING DINNER, TOLERATING CURRENT DIET WELL, PM MEDS GIVEN ORDERED, NO BLADDER DISCOMFORT NOTED, NEEDS ATTENDED.
--- NOTE | 2018-05-16 19:28 | NUR ---
MS/RN NOTES RECEIVED PT. LYING IN BED RESTING. PT. IS EASILY AROUSABLE TO NAME. PT. IS AWAKE, ALERT AND ORIENTED X4. BREATHING EVEN AND UNLABORED ON ROOM AIR. NO SOB, RESPIRATORY DISTRESS OR COMPLAINTS OF PAIN NOTED AT THIS TIME. PT. WITH RIGHT UPPER ARM MIDLINE PRESENT, PATENT AND INTACT. PT. WITH LEFT LOWER EXTREMITY DRESSING PRESENT, CLEAN, DRY AND INTACT. ISOLATION AND SAFETY PRECAUTIONS IMPLEMENTED AND IN PLACE. BED LOCKED AND IN LOWEST POSITION, SIDE RAILS UP X2, CALL LIGHT WITHIN REACH, WILL CONTINUE TO MONITOR.
[2018-05-16 20:00] VITALS: BP 109/69
--- NOTE | 2018-05-16 21:45 | NUR ---
MS/RN NOTES BLADDER SCAN PERFORMED. PT. NOTED TO HAVE 179ML PRESENT IN BLADDER. PT. VOIDING IN URINAL WITHOUT DIFFICULTY. WILL CONTINUE TO MONITOR PT. URINE OUTPUT.
[2018-05-17] MEDS: HYDROCODONE/APAP 5/325MG 1 EACH TABLET PO PRN ×4 (03:15→20:41)
[2018-05-17] MEDS: GABAPENTIN 300 MG CAPSULE PO SCH ×3 (04:56→20:41)
[2018-05-17] MEDS: MEROPENEM 1 G in IV NS 0.9% 100 ML IV SCH ×3 (04:56→20:41)
--- NOTE | 2018-05-17 06:00 | NUR ---
MS/RN NOTES BLADDER SCAN PERFORMED. PT. NOTED WITH 280ML PRESENT UPON BLADDER SCAN. WILL CONTINUE TO MONITOR.
--- NOTE | 2018-05-17 06:24 | NUR ---
MS/RN NOTES PT. IS LYING IN BED RESTING. BREATHING EVEN AND UNLABORED ON ROOM AIR. NO SOB, RESPIRATORY DISTRESS OR COMPLAINTS OF PAIN NOTED AT THIS TIME. PT. WITH RIGHT UPPER ARM MIDLINE PRESENT, PATENT AND INTACT. PT. WITH LEFT LOWER EXTREMITY DRESSING PRESENT, CLEAN, DRY AND INTACT. ISOLATION AND SAFETY PRECAUTIONS IMPLEMENTED AND IN PLACE. ALL PT. NEEDS MET. BED LOCKED AND IN LOWEST POSITION, SIDE RAILS UP X2, CALL LIGHT WITHIN REACH, WILL ENDORSE TO DAYSHIFT NURSE FOR CONTINUITY OF CARE.
[2018-05-17 06:46] LABS: BASOPHILS # (AUTO) 0.3 /CMM (0.0-0.2); BASOPHILS % (AUTO) 1.8 % (0.0-2.0); EOSINOPHILS % (AUTO) 0.9 % (0.0-6.0); HEMATOCRIT 27 % (39-51); HEMOGLOBIN 8.8 g/dL (13.5-17.5); LYMPHOCYTES # (AUTO) 1.3 /CMM (0.8-4.8); LYMPHOCYTES % (AUTO) 8.4 % (20.0-44.0); MEAN CORPUSCULAR HGB CONC 33 g/dl (31.0-36.0); MEAN CORPUSCULAR VOLUME 84 fL (80-96); MONOCYTES # (AUTO) 1.3 /CMM (0.1-1.30); MONOCYTES % (AUTO) 8.8 % (2.0-12.0); NEUTROPHILS % (AUTO) 80.1 % (43.0-81.0); PLATELET COUNT (AUTO) 171 /CMM (150-450)
[2018-05-17 06:57] LABS: ALBUMIN 2.5 g/dL (3.4-5.0); BILIRUBIN,TOTAL 0.7 mg/dL (0.2-1.0); CALCIUM, SERUM 8.6 mg/dL (8.5-10.1); MAGNESIUM 1.8 mg/dL (1.8-2.4); PHOSPHORUS 2.8 mg/dL (2.5-4.9); POTASSIUM 3.6 mmol/L (3.5-5.1)
[2018-05-17 08:00] VITALS: BP 86/57
--- NOTE | 2018-05-17 08:00 | NUR ---
RN OPENING NOTES Received Patient comfortable and resting in bed. A/O x 4. Breathing even and unlabored in room air. VS stable with no acute signs and symptoms of distress. Patient reported pain level of 7/10 and increasing. Will intervene as ordered. Midline IV on RIGHT UPPER ARM, patent, clean, dry and intact. No redness, swelling nor pain at site. IV flushes well. General edema noted. Elevated upper and lower extremities with pillows. LEFT LOWER EXTREMITY dressing, clean, dry and intact. All scheduled medications administered. Safety precautions in place. Bed locked and kept in low position with side rails up x 2. Call light within reach. Will continue to monitor.
[2018-05-17] MEDS: PANTOPRAZOLE 40 MG TABLET.DR PO SCH ×2 (08:56→16:37)
[2018-05-17] MEDS: ASPIRIN 81 MG TAB.CHEW PO SCH (08:56)
[2018-05-17] MEDS: LACTOBACILLUS RHAMNOSUS GG 1 EACH CAP.SPRINK PO SCH ×2 (08:56→16:37)
[2018-05-17] MEDS: NICOTINE PATCH (21MG) 21 MG PATCH.TD24 TD SCH (08:56)
[2018-05-17] MEDS: NEOMY SULF/BACITRAC ZN/POLY 15 GM TUBE TP SCH (09:06)
--- NOTE | 2018-05-17 09:22 | NUR ---
RN NOTES Administered [place] 5-325mg PO PRN per Patients request. Patient stated pain level of 8/10 on BILATERAL LOWER EXTREMITIES. Elevated LEFT LOWER EXTREMITY with a pillow. Will continue to monitor.
--- NOTE | 2018-05-17 10:22 | NUR ---
RN NOTES Patient stated pain unrelieved. [place] ineffective. Pain level 8/10. Provided comfort measures including repositioning Patient and provided snacks, ice chips and warm blanket per Patients request. Will continue to monitor.
[2018-05-17] MEDS: CARVEDILOL 3.125 MG TABLET PO SCH ×2 (12:02→21:29)
[2018-05-17] MEDS: SPIRONOLACTONE 25 MG TABLET PO SCH (12:02)
[2018-05-17 16:00] VITALS: BP 109/67
--- NOTE | 2018-05-17 16:00 | NUR ---
RN NOTES Bladder scan done at this time. Patient tolerated well. 107ml noted in bladder. No complaints nor pain of bladder discomfort. Patient urinating well. Urinal at bedside. Will continue to monitor.
--- NOTE | 2018-05-17 16:39 | NUR ---
RN NOTES Administered [place] 5-325mg PO PRN per Patients request. Patient stated pain level of 6/10. Provided comfort measures. Environment kept clean and quiet. Will continue to monitor.
--- NOTE | 2018-05-17 18:53 | NUR ---
RN OPENING NOTES Patient comfortable, resting in bed, watching TV. A/O x 4. Breathing even and unlabored in room air. VS stable with no acute signs and symptoms of distress. Patient reported pain level of 8/10 s/p dressing change. Comfort measures provided. Environment kept clean and quiet. Per Patients request, closed door. Will endorse to oncoming shift. Midline IV on RIGHT UPPER ARM, patent, clean, dry and intact. No redness, swelling nor pain at site. IV flushes well. General edema noted. Bilateral lower extremities elevated with pillows. LEFT LOWER EXTREMITY dressing, clean, dry and intact. All scheduled medications administered. Safety precautions in place. Bed locked and kept in low position with side rails up x 2. Call light within reach. Will endorse plan of care to oncoming shift. Addendum: 05/17/18 at 1859 by ELIZABETH TREADWELL RN RN CLOSING NOTES
--- NOTE | 2018-05-17 19:10 | NUR ---
RN MS OPENING NOTES RECEIVED PATIENT IN BED AWAKE ALERT AND ORIENTED x4,RESPIRATIONS EVEN AND UNLABORED WITH EQUAL RISE AND FALL OF CHEST , DENIES ANY PAIN OR DISCOMFORT AT THIS TIME CURRENTLY EATING HIS DINNER, URINAL AT BEDSIDE AND WITHIN REACH, LLE DRY ELISSA BANDAGE INTACT AND CLEAN, RIGHT UPPER ARM MIDLINE, INTACT AND PATENT, NO REDNESS, NO INFILTRATION PRESENT, DRESSING IS CLEAN DRY AND INTACT, ORIENTED TO STAFF AND CALL LIGHT AND KEPT WITHIN REACH, ALL NEEDS ATTENDED WILL CONTINUE TO MONITOR AND ATTEND TO NEEDS. SAFETY PRECAUTIONS IN PLACE, LOW BED AND LOCKED, BED ALARM IN PLACE.
[2018-05-17 20:00] VITALS: BP 118/69
--- NOTE | 2018-05-17 20:41 | NUR ---
RN MS NOTES PATIENT COMPLAINT OF PAIN TO LEFT LEG / REQUESTING FOR NORCO VS WNL 118/69,87,95%, 20 NORCO PRN GIVEN ORDERED WILL CONTINUE TO MONITOR FOR EFFECTIVENESS.
[2018-05-17] MEDS: ZOLPIDEM TARTRATE 10 MG TABLET PO PRN (22:26)
--- NOTE | 2018-05-17 22:26 | NUR ---
RN MS NOTES PATIENT COMPLAINT THAT HE IS UNABLE TO SLEEP AND WOULD LIKE TO HAVE A SLEEP MEDICATION . KYLE MADE AWARE WITH NEW ORDER FOR AMBIEN 10MG PO HS PRN . ORDER NOTED,RB, VERIFIED AND CARRIED OUT. AMBIEN PRN GIVEN WILL CONTINUE TO MONITOR FOR EFFECTIVENESS.
--- NOTE | 2018-05-18 03:00 | NUR ---
rn ms notes bladder scan 0ml
[2018-05-18] MEDS: MEROPENEM 1 G in IV NS 0.9% 100 ML IV SCH ×3 (05:16→20:58)
[2018-05-18] MEDS: GABAPENTIN 300 MG CAPSULE PO SCH ×3 (05:16→20:36)
--- NOTE | 2018-05-18 07:00 | NUR ---
RN MS CLOSING NOTES PATIENT IN BED AWAKE ALERT AND ORIENTED x4,RESPIRATIONS EVEN AND UNLABORED WITH EQUAL RISE AND FALL OF CHEST , DENIES ANY PAIN OR DISCOMFORT AT THIS TIME , URINAL AT BEDSIDE AND WITHIN REACH, LLE DRY ELISSA BANDAGE INTACT AND CLEAN, RIGHT UPPER ARM MIDLINE, INTACT AND PATENT, NO REDNESS, NO INFILTRATION PRESENT, DRESSING IS CLEAN DRY AND INTACT, ATB IS CURRENTLY RUNNING ORDERED AT THIS TIME, CALL LIGHT KEPT WITHIN REACH, ALL NEEDS ATTENDED WILL CONTINUE TO MONITOR AND ATTEND TO NEEDS. SAFETY PRECAUTIONS IN PLACE, LOW BED AND LOCKED, BED ALARM IN PLACE WILL ENDORSE TO NEXT SHIFT.
[2018-05-18 08:00] VITALS: BP 115/82
--- NOTE | 2018-05-18 08:00 | NUR ---
RN OPENING NOTES Received Patient comfortable and asleep in bed. A/O x 4. Breathing even and unlabored in room air with no signs and symptoms of respiratory distress. VS stable with no acute distress. No signs and symptoms of pain. Midline IV on RIGHT UPPER ARM, patent, clean, dry and intact. Saline lock. No redness, swelling nor pain at site. IV flushes well. General edema noted. Bilateral lower extremities elevated with a pillow. LEFT LOWER EXTREMITY dressing, clean, dry and intact. All scheduled medications administered. Urinal at bedside. Safety precautions in place. Bed locked and kept in low position with side rails up x 2. Call light within reach. Will continue to monitor.
[2018-05-18] MEDS: PANTOPRAZOLE 40 MG TABLET.DR PO SCH ×2 (08:54→16:52)
[2018-05-18] MEDS: LACTOBACILLUS RHAMNOSUS GG 1 EACH CAP.SPRINK PO SCH ×2 (08:54→16:50)
[2018-05-18] MEDS: ASPIRIN 81 MG TAB.CHEW PO SCH (08:54)
[2018-05-18] MEDS: CARVEDILOL 3.125 MG TABLET PO SCH ×2 (08:55→20:36)
[2018-05-18] MEDS: SPIRONOLACTONE 25 MG TABLET PO SCH (08:55)
[2018-05-18] MEDS: NICOTINE PATCH (21MG) 21 MG PATCH.TD24 TD SCH (08:55)
[2018-05-18] MEDS: NEOMY SULF/BACITRAC ZN/POLY 15 GM TUBE TP SCH (08:56)
[2018-05-18 10:00] VITALS: BP 115/82
[2018-05-18 16:00] VITALS: BP 122/113
[2018-05-18] MEDS: HYDROCODONE/APAP 5/325MG 1 EACH TABLET PO PRN ×2 (16:51→20:58)
--- NOTE | 2018-05-18 16:51 | NUR ---
MS RN NOTES Administered [place] 5-325mg PO PRN per Patients request. Patient stated pain level of 10/10 on BILATERAL LEGS. Snacks provided for comfort. Will continue to monitor.
[2018-05-18] MEDS: FLUCONAZOLE (100 MG) 100 MG TABLET PO SCH (18:11)
--- NOTE | 2018-05-18 18:57 | NUR ---
MS RN CLOSING NOTES Patient comfortable and eating snacks in bed. A/O x 4. Breathing even and unlabored in room air with no signs and symptoms of respiratory distress. VS stable with no acute distress. Tolerable pain at 5/10. Midline IV on RIGHT UPPER ARM, patent, clean, dry and intact. Saline lock. No redness, swelling nor pain at site. IV flushes well. General edema noted. LEFT LOWER EXTREMITY dressing, clean, dry and intact. All scheduled medications administered. Urinal at bedside. Bladder scan results >74ml. Safety precautions in place. Bed locked and kept in low position with side rails up x 2. Call light within reach. Will continue to monitor.
--- NOTE | 2018-05-18 19:32 | NUR ---
RN OPENING NOTES RECEIVED PATIENT AWAKE AND COMFORTABLE IN BED. A/O X4. NO SIGNS OF RESPIRATORY DISTRESS. DENIES SHORTNESS OF BREATH. SAFETY PRECAUTIONS IMPLEMENTED. CALL LIGHT WITHIN REACH. WILL CONTINUE TO MONITOR PATIENT THROUGHOUT THE SHIFT.
[2018-05-18 20:00] VITALS: BP 115/64
[2018-05-18 20:32] VITALS: BP 115/64
[2018-05-18] MEDS: ZOLPIDEM TARTRATE 10 MG TABLET PO PRN (22:29)
[2018-05-19] MEDS: ALBUTEROL FS 2.5 MG/3 ML VIAL.NEB NEB PRN (00:22)
--- NOTE | 2018-05-19 04:43 | NUR ---
RN NOTES BLADDER SCAN 18 ML
[2018-05-19] MEDS: GABAPENTIN 300 MG CAPSULE PO SCH ×3 (05:09→22:09)
[2018-05-19] MEDS: MEROPENEM 1 G in IV NS 0.9% 100 ML IV SCH ×3 (05:10→22:14)
--- NOTE | 2018-05-19 06:22 | NUR ---
RN CLOSING NOTES PATIENT IS RESTING COMFORTABLY IN BED. NO SIGNS OF RESPIRATORY DISTRESS. NO FACIAL GRIMACING AT THIS TIME. SAFETY PRECAUTIONS IMPLEMENTED. CALL LIGHT WITHIN REACH. ALL NEEDS MET. WILL ENDORSE TO AM RN.
[2018-05-19 07:12] LABS: BASOPHILS # (AUTO) 0.1 /CMM (0.0-0.2); BASOPHILS % (AUTO) 0.7 % (0.0-2.0); EOSINOPHILS % (AUTO) 1.1 % (0.0-6.0); HEMATOCRIT 26 % (39-51); HEMOGLOBIN 8.3 g/dL (13.5-17.5); LYMPHOCYTES % (AUTO) 11.1 % (20.0-44.0); MEAN CORPUSCULAR HGB CONC 32 g/dl (31.0-36.0); MEAN CORPUSCULAR VOLUME 88 fL (80-96); MONOCYTES # (AUTO) 1.1 /CMM (0.1-1.30); MONOCYTES % (AUTO) 11.4 % (2.0-12.0); NEUTROPHILS % (AUTO) 75.7 % (43.0-81.0); PLATELET COUNT (AUTO) 179 /CMM (150-450); WHITE BLOOD COUNT (AUTO) 9.3 K/uL (4.3-11.0)
[2018-05-19 07:58] LABS: CALCIUM, SERUM 7.3 mg/dL (8.5-10.1); CREATININE 0.9 mg/dL (0.6-1.3); POTASSIUM 3.8 mmol/L (3.5-5.1)
[2018-05-19 08:00] VITALS: BP 125/94
[2018-05-19] MEDS: ASPIRIN 81 MG TAB.CHEW PO SCH (08:40)
[2018-05-19] MEDS: SPIRONOLACTONE 25 MG TABLET PO SCH (08:40)
[2018-05-19] MEDS: CARVEDILOL 3.125 MG TABLET PO SCH ×2 (08:40→22:10)
[2018-05-19] MEDS: PANTOPRAZOLE 40 MG TABLET.DR PO SCH ×2 (08:40→16:37)
[2018-05-19] MEDS: LACTOBACILLUS RHAMNOSUS GG 1 EACH CAP.SPRINK PO SCH ×2 (08:40→16:37)
[2018-05-19] MEDS: HYDROCODONE/APAP 5/325MG 1 EACH TABLET PO PRN (08:41)
[2018-05-19] MEDS: NICOTINE PATCH (21MG) 21 MG PATCH.TD24 TD SCH (08:46)
[2018-05-19] MEDS: NEOMY SULF/BACITRAC ZN/POLY 15 GM TUBE TP SCH (08:46)
--- NOTE | 2018-05-19 13:15 | NUR ---
PATIENT REFUSED WOUND CARE; BENEFITS EXPLAINED, PATIENT BECAME AGITATED AND SAID JUST LEAVE ME ALONE.
[2018-05-19 16:00] VITALS: BP 133/93
[2018-05-19] MEDS: FLUCONAZOLE (100 MG) 100 MG TABLET PO SCH (16:37)
--- NOTE | 2018-05-19 18:50 | NUR ---
PATIENT CLEARED FOR D/C BY Ozzy FULTON. PATIENT REFUSED TO BE DISCHARGE TO FACILITY WHERE HE WAS ACCEPTED. MINER OPERATOR AWARE, Ozzy FULTON AWARE. NEEDS ATTENDED , DUE MEDICATION GIVEN. SAFETY PRECAUTIONS IN PLACE. CALL LIGHT PLACED WITHIN REACH. BED ALARM ACTIVATED. WILL ENDORSE TO NEXT SHIFT
--- NOTE | 2018-05-19 19:15 | NUR ---
MS RN INITIAL NOTES Patient in bed, awake. Stable oxygen saturation on RA, denies shortness of breath. Left leg dressing C/D/I denies pain. Per report patient refused discharged to SNF today, CM following SUCCESS COACH aware. Maintained safety, will cont to monitor.
[2018-05-19 20:00] VITALS: BP 129/85
[2018-05-20] MEDS: HYDROCODONE/APAP 5/325MG 1 EACH TABLET PO PRN ×2 (00:08→06:32)
[2018-05-20] MEDS: ZOLPIDEM TARTRATE 10 MG TABLET PO PRN (01:37)
--- NOTE | 2018-05-20 05:06 | NUR ---
Patient is voiding urine, diaper and urinal. Bladder scan 237 vol residual, explained to patient if urine residual 300 ml and above, straight cath needs to be performed, patient refuse cath. Education provided, patient still refuse cath if residual vol reach 300ml and above.
[2018-05-20] MEDS: GABAPENTIN 300 MG CAPSULE PO SCH ×2 (05:14→12:01)
[2018-05-20] MEDS: MEROPENEM 1 G in IV NS 0.9% 100 ML IV SCH ×2 (05:14→12:00)
[2018-05-20] MEDS: ALBUTEROL FS 2.5 MG/3 ML VIAL.NEB NEB PRN (05:53)
--- NOTE | 2018-05-20 06:18 | NUR ---
MS RN CLOSING NOTES Patient in bed, A/O X3 irritable behavior. On supplemental oxygen at 2L NC, dyspnea on exertion, denies shortness of breath at rest. Breathing treatment per RT. J CARLOS midline intact, on IV antibiotic as scheduled. PRN Martin given for left leg pain with relief, LLE dressing C/D/I. Voiding urine diaper and urinal, patient agreed on bladder scan but stated refuse to straight cath if urine vol residual reach 300 ml and above, education provided. Contact precaution, PPE utilized. Planned discharged to [facility], for placement. Maintained safety, will endorse to oncoming RN.
[2018-05-20] MEDS: PANTOPRAZOLE 40 MG TABLET.DR PO SCH ×2 (06:32→17:01)
--- NOTE | 2018-05-20 07:32 | NUR ---
RN OPENING NOTE PT WAS RECEIVED IN BED AT LOWEST AND LOCKED POSITION WITH SIDE RAILS UPX2, A/O X3, BREATHING EVEN AND UNLABORED ON 2L VIA NC, NO CURRENT COMPLAINTS OF ANY DISTRESS OR PAIN NOTED, MIDLINE IS PATENT AND INTACT WITH ABX CURRENTLY INFUSING, ON Q8H BLADDER SCAN WITH LAST ONE DONE BETWEEN 5-6AM , LITHOGRAPHERS PRINTER RN INFORMED ME THAT PATIENT HAS REFUSED STRAIGHT CATH BUT WILL ATTEMPT AGAIN IF AMOUNT EXCEEDS 300 CC, SAFETY PRECAUTIONS IN PLACE, CALL LIGHT WITHIN REACH, WILL MONITOR ACCORDINGLY.
[2018-05-20 08:00] VITALS: BP 101/72
[2018-05-20] MEDS: NICOTINE PATCH (21MG) 21 MG PATCH.TD24 TD SCH (09:00)
[2018-05-20] MEDS: CARVEDILOL 3.125 MG TABLET PO SCH (09:00)
[2018-05-20] MEDS: SPIRONOLACTONE 25 MG TABLET PO SCH (09:05)
[2018-05-20] MEDS: LACTOBACILLUS RHAMNOSUS GG 1 EACH CAP.SPRINK PO SCH ×2 (09:05→17:01)
[2018-05-20] MEDS: ASPIRIN 81 MG TAB.CHEW PO SCH (09:06)
[2018-05-20] MEDS: NEOMY SULF/BACITRAC ZN/POLY 15 GM TUBE TP SCH (09:07)
--- NOTE | 2018-05-20 11:46 | NUR ---
RN NOTE PT REFUSED TO BE CHANGED AT THIS TIME STATING "I AM FINE RIGHT NOW, I DON'T NEED IT" EVEN THOUGH HE IS DIRTY. WILL TRY AGAIN LATER, WILL MONITOR ACCORDINGLY.
--- NOTE | 2018-05-20 12:42 | NUR ---
RN NOTE BLADDER SCAN WAS ATTEMPTED AT THIS TIME BUT WAS UNABLE TO BE PERFORMED DUE TO THE THE MACHINE BEING FROZEN. MULTIPLE ATTEMPTS WERE TRIED AT RESTARTING IT. EXCELSIOR MACHINE FEEDER DARIEL AND NURSING PROFESSOR OF CHEMICAL ENGINEERING MADE AWARE. HOWEVER, THE PATIENT IS VOIDING, WITH NO DISTENTION NOTED AND NO PAIN OR BULGE FELT WHEN PALPATED. WILL MONITOR ACCORDINGLY.
--- NOTE | 2018-05-20 14:10 | NUR ---
RN NOTE ATTEMPTED TO TAKE PHOTOS OF WOUNDS AND TO CHANGE PT DRESSING DUE TO PLAN FOR HIM TO BE D/C TO BOARD AND CARE BUT HE REFUSED STATING HE WANTS TO SLEEP. WILL MONITOR ACCORDINGLY.
--- NOTE | 2018-05-20 14:20 | NUR ---
RN NOTE WAS INFORMED BY MARA KAUR THAT PATIENT WILL BEING GOING TO [facility]ARE IN [place] WITH AN ESTIMATED CASER TIME OF 1615PM
[2018-05-20 16:00] VITALS: BP 129/84
[2018-05-20] MEDS: FLUCONAZOLE (100 MG) 100 MG TABLET PO SCH (17:01)
--- NOTE | 2018-05-20 17:50 | NUR ---
DISCHARGE NOTE PT WAS DISCHARGED AT THIS TIME IN MEDICALLY STABLE CONDITION TO BOARD AND CARE AT THIS TIME. ALL D/C PAPERWORK, EXITCARE, AND BELONGING LIST WERE SIGNED, DISCUSSED, AND HANDED TO THE PATIENT. IV AND ID BAND WERE REMOVED. PT REFUSED FOR PHOTOS OF SKIN WOUNDS TO BE TAKEN OR DOCUMENTED. HE LEFT A/O X3, BREATHING EVEN AND UNLABORED, WITH NO COMPLAINTS OF ANY PAIN OR DISTRESS. ALL BELONGINGS WERE HANDED TO THE EMT. PRESCRIPTION AND MEDS WERE HANDED TO EMT CREW AND PATIENT. ALL NEEDS WERE ATTENDED TO DURING HIS STAY. PT LEFT WITH EMT CREW AT THIS TIME.
== END 2018-05-20 18:00 | disposition home or self-care (01) | DRG 166 ==
LOC: ER 18:11 → TELE 22:05 → MED 05-10 10:44
PROVIDERS: ADMIT Internal Medicine; ATTEND Nurse Practitioner Acute Care
DX: J15.9 Unspecified bacterial pneumonia (principal); I50.43 Acute on chronic combined systolic (congestive) and diastolic (congestive) heart failure; N17.0 Acute kidney failure with tubular necrosis; L03.116 Cellulitis of left lower limb; I13.0 Hypertensive heart and chronic kidney disease with heart failure and stage 1 through stage 4 chronic kidney disease, or unspecified chronic kidney disease; D68.59 Other primary thrombophilia; D68.9 Coagulation defect, unspecified; I87.312 Chronic venous hypertension (idiopathic) with ulcer of left lower extremity; N39.0 Urinary tract infection, site not specified; J44.0 Chronic obstructive pulmonary disease with (acute) lower respiratory infection; E44.0 Moderate protein-calorie malnutrition; E87.1 Hypo-osmolality and hyponatremia; J98.11 Atelectasis; L03.115 Cellulitis of right lower limb; E78.5 Hyperlipidemia, unspecified; K21.9 Gastro-esophageal reflux disease without esophagitis; N18.9 Chronic kidney disease, unspecified; E11.22 Type 2 diabetes mellitus with diabetic chronic kidney disease; Z86.73 Personal history of transient ischemic attack (TIA), and cerebral infarction without residual deficits; J44.9 Chronic obstructive pulmonary disease, unspecified; F41.9 Anxiety disorder, unspecified; I25.5 Ischemic cardiomyopathy; F17.210 Nicotine dependence, cigarettes, uncomplicated; D63.8 Anemia in other chronic diseases classified elsewhere; G89.29 Other chronic pain; M54.9 Dorsalgia, unspecified; Z68.30 Body mass index [BMI] 30.0-30.9, adult; Z91.14 Patient's other noncompliance with medication regimen; Z59.0 Homelessness; F15.10 Other stimulant abuse, uncomplicated; I87.2 Venous insufficiency (chronic) (peripheral); L98.499 Non-pressure chronic ulcer of skin of other sites with unspecified severity; E11.51 Type 2 diabetes mellitus with diabetic peripheral angiopathy without gangrene; B96.1 Klebsiella pneumoniae [K. pneumoniae] as the cause of diseases classified elsewhere; E83.42 Hypomagnesemia; E87.6 Hypokalemia; R74.0 Nonspecific elevation of levels of transaminase and lactic acid dehydrogenase [LDH]; B96.20 Unspecified Escherichia coli [E. coli] as the cause of diseases classified elsewhere
CPT/HCPCS: 36415; 36569; 71045-TC; 76856-TC; 80048-TC; 80053-TC; 80061-TC; 80076-TC; 80202-TC; 80305; 81000-TC; 82140-TC; 82272-TC; 83540-TC; 83605-TC; 83735-TC; 83880; 84100-TC; 84439-TC; 84443-TC; 84484-TC; 85025-TC; 85610-TC; 85730-TC; 87040-TC; 87070-TC; 87081-TC; 87086-TC; 87186-TC; 87806; 92521; 93307-TC; 93970-TC; 94799-TC; 97110-TC; 97116-TC; 97530-TC; A4216; A6253; A6402; A6403; G0378; G0480; J1940; J2185; J2405; J2543; J2916; J3370; J3475; J3490; J7030; J7050; J7060

== ENCOUNTER 2018-07-10 11:43 | Inpatient (IN) | payer MEDICAID ==
[~2018-07-10] VITALS: Ht 170.2 cm; Wt 83.9 kg
[~2018-07-10 11:43] MED LIST changes: -AZIT250T PO; -ENOX40DI SQ; -FURO10VI IV; -GABA300C PO; -INSU100V28 SQ; -NICO-677 TD
--- NOTE | 2018-07-10 11:52 | NUR ---
PT BIB ra [address] s/p police cleaning homeless encampment, PT IS AAOX3, NOT IN RESPIRATORY DISTRESS, V/S STABLE, KEPT RESTED AND COMFORTABLE, WILL CONTINUE TO MONITOR.
--- NOTE | 2018-07-10 11:53 | NUR ---
CALLED [employer]XMI PAPER NOVELTY MAKER TO COME SEE PT
--- NOTE | 2018-07-10 11:55 | NUR ---
SEEN AND EXAMINED BY DR. SAMPSON.
[2018-07-10 12:13] LABS: BASOPHILS % (AUTO) 0.6 % (0.0-2.0); EOSINOPHILS % (AUTO) 0.1 % (0.0-6.0); HEMATOCRIT 37 % (39-51); HEMOGLOBIN 11.8 g/dL (13.5-17.5); LYMPHOCYTES # (AUTO) 0.7 /CMM (0.8-4.8); LYMPHOCYTES % (AUTO) 19.4 % (20.0-44.0); MEAN CORPUSCULAR HGB CONC 32 g/dl (31.0-36.0); MEAN CORPUSCULAR VOLUME 89 fL (80-96); MONOCYTES # (AUTO) 0.4 /CMM (0.1-1.30); MONOCYTES % (AUTO) 10.9 % (2.0-12.0); NEUTROPHILS # (AUTO) 2.6 /CMM (1.8-8.9); PLATELET COUNT (AUTO) 109 /CMM (150-450); RED BLOOD CELL COUNT(AUTO) 4.13 MIL/uL (4.5-6.0); WHITE BLOOD COUNT (AUTO) 3.8 K/uL (4.3-11.0)
--- NOTE | 2018-07-10 12:16 | NUR ---
VANI received a call from [place] in ED requesting for SW to evaluate pt. for homelessness. Pt. is a 62 year old male who was brought to [facility] by rescue ambulance after police were cleaning homeless encampment. VANI is familiar with the pt. from previous admission on 05/09/2018. Pt. is non-ambulatory at this time and correction placement is not appropriate. After discussing case with oil field caser MONSE Lane and Dr. Mccarty, pt. will be admitted to [facility] for placement.
[2018-07-10 12:19] LABS: CALCIUM, SERUM 8.9 mg/dL (8.5-10.1); CARBON DIOXIDE 21 mmol/L (21-32); CHLORIDE 98 mmol/L (98-107); CREATININE 1.5 mg/dL (0.6-1.3); GLUCOSE 52 mg/dL (74-106); POTASSIUM 4.6 mmol/L (3.5-5.1); SODIUM SERUM 134 mmol/L (136-145); UREA NITROGEN, BLOOD 39 mg/dL (7-18)
[2018-07-10 12:25] LABS: ALANINE AMINOTRANSFERASE 35 U/L (12-78); ALBUMIN 2.8 g/dL (3.4-5.0); ALKALINE PHOSPHATASE 115 U/L (46-116); ASPARTATE AMINOTRANSFERASE 71 U/L (15-37); BILIRUBIN,TOTAL 2.8 mg/dL (0.2-1.0); TOTAL PROTEIN, SERUM 7.4 g/dL (6.4-8.2)
[2018-07-10 12:26] LABS: ACETAMINOPHEN 0 ug/ml (10-30); ALCOHOL, BLOOD < 3 mg/dL (0-0); SALICYLATE < 2.8 mg/dL (2.8-20.0)
--- NOTE | 2018-07-10 12:28 | NUR ---
URINAL GIVEN BUT UNABLE TO PROVIDE URINE SPECIMEN.
--- NOTE | 2018-07-10 12:30 | NUR ---
PT REFUSED IV INSERTION.
--- NOTE | 2018-07-10 12:55 | NUR ---
MS 312-1
--- NOTE | 2018-07-10 13:45 | NUR ---
REPORT GIVEN TO ILIANA GARCIA FOR MUKUL.
[2018-07-10 14:00] VITALS: BP 116/77
--- NOTE | 2018-07-10 14:00 | NUR ---
MS RETAIL COVERAGE MERCHANDISER NOTE PT ARRIVED TO [place] FLOOR VIA GURNEY IN STABLE CONDITION ACCOMPANIED BY 2 ER STAFF. PT IS A/O X3-4, AFEBRILE. RESPIRATIONS ARE EVEN AND UNLABORED, NOT IN ANY ACUTE DISTRESS NOTED. PT C/O GENERALIZED PAIN10/10, NO C/O SOB, N/V. PUPILS ARE REACTIVE TO LIGHT, BILATERAL HAND PROVIDER NETWORK MGR ARE STRONG AND EQUAL. IV ACCESS TO RFA G20, INTACT, NO INFILTRATION NOTED. DRESSING KEPT CLEAN AND DRY. PITTING EDEMA NOTED TO LUE, ABDOMEN, BLE +4. PITTING EDEMA TO RUE +3. MULTIPLE DISCOLORATIONS TO BUE. MULTIPLE ULCERATIONS TO BLE AND FEET. HEELS KEPT OFFLOADED ABOVE TWO PILLOWS. NAYA NURSE UNIT MANAGER MADE AWARE OF ADMISSION. INSTRUCTED PT TO USE CALL LIGHT WHEN ASSISTANCE IS NEEDED, CALL LIGHT IS LEFT WITHIN REACH. WILL MONITOR THROUGHOUT SHIFT FOR CONTINUITY OF CARE.
[2018-07-10] MEDS ORDERED: IV 1/2NS 1000 ML 1,000 ML IV PRN (14:36)
[2018-07-10] MEDS ORDERED: ACETAMINOPHEN 325 MG TABLET PO PRN (15:00)
[2018-07-10] MEDS ORDERED: MORPHINE SULFATE INJ 2 MG/ML DISP.SYRIN IV PRN (15:00)
[2018-07-10] MEDS ORDERED: MAGNESIUM HYDROXIDE 30 ML UDC PO PRN (15:00)
[2018-07-10] MEDS ORDERED: HYDROCODONE/APAP 5/325MG 1 EACH TABLET PO PRN (15:00)
[2018-07-10] MEDS ORDERED: MAG HYDROX/AL HYDROX/SIMETH 30 ML UDC PO PRN (15:00)
[2018-07-10] MEDS ORDERED: ZOLPIDEM TARTRATE 5 MG TABLET PO PRN (15:00)
--- NOTE | 2018-07-10 15:20 | NUR ---
MS RN NOTES-- WOUND CARE CONSULT ORDERED BY QUINTIN PERSON. OFFERED TO CLEAN PT'S BLE TO MINIMIZE INFECTION. PT STATED "NO, JUST LEAVE ME ALONE. I WANT TO SLEEP." EDUCATED PT RE: CLEANSING OF WOUNDS AND PT STILL REFUSED. WILL CONTINUE TO MONITOR CLOSELY.
[2018-07-10 16:00] VITALS: BP 116/69
[2018-07-10] MEDS: PANTOPRAZOLE 40 MG TABLET.DR PO SCH (16:07)
--- NOTE | 2018-07-10 16:56 | NUR ---
MS RN NOTES-- OFFERED PT TO CLEAN DRIED ULCERATIONS TO BLE, PT STATED "NO, NOT NOW. JUST LEAVE ME ALONE. I JUST WANT TO SLEEP." WILL CONTINUE TO MONITOR CLOSELY.
--- NOTE | 2018-07-10 17:05 | NUR ---
MS RN NOTES-- BLOOD SUGAR 74. NO S/SX OF HYPOGLYCEMIA. OFFERED JUICE AND SNACKS.
[2018-07-10] MEDS: BLOOD SUGAR DIAGNOSTIC 1 EACH STRIP IN SCH ×2 (17:08→21:32)
--- NOTE | 2018-07-10 17:13 | NUR ---
MS RN NOTES-- CLARIFIED IV FLUIDS WITH NAYA, HEAD OF QUALITY D/T EDEMA TO ABD PITTING +4. PER JANE, D/C IV FLUIDS AND ORDER BNP. ORDERS NOTED AND CARRIED OUT.
--- NOTE | 2018-07-10 18:33 | NUR ---
MS RN CLOSING NOTES ALL DUE MEDS GIVEN. NEEDS MET AND ANTICIPATED. PT IS A/O X3, AFEBRILE. RESPIRATIONS ARE EVEN AND UNLABORED, NOT IN ANY ACUTE DISTRESS NOTED. PT DENIES ANY PAIN, NO C/O SOB, N/V. RFA G20 INTACT, DRESSING KEPT CLEAN AND DRY. SAFETY MEASURES ARE IN PLACE. REMINDED PT TO USE CALL LIGHT WHEN ASSISTANCE IS NEEDED, CALL LIGHT IS LEFT WITHIN REACH. WILL ENDORSE TO NEXT SHIFT FOR CONTINUITY OF CARE.
--- NOTE | 2018-07-10 19:55 | NUR ---
MS RN NOTE: PATIENT RESTING IN BED, NO ACUTE DISTRESS NOTED. BREATHING EVEN AND UNLABORED, NO SOB NOTED. IV TO RFA IN PLACE. BED LOCKED AND IN LOWEST POSITION, CALL LIGHT IN REACH. WILL CONTINUE TO MONITOR.
[2018-07-10 20:00] VITALS: BP 117/80
[2018-07-10] MEDS: CARVEDILOL 3.125 MG TABLET PO SCH (21:00)
[2018-07-10] MEDS: DEXTROSE 50%-WATER 50 ML DISP.SYRIN IV PRN (21:49)
--- NOTE | 2018-07-10 22:00 | NUR ---
MS RN NOTE: PATIENT BLOOD SUGAR LEVEL LOW, REPEAT BLOOD SUGAR LEVEL 23MG/DL, PATIENT RESPONSIVE. DEXTROSE 50% INJECTION GIVEN PER PROTOCOL NO S/S OF HYPOGLYCEMIA NOTED. ORANGE JUICE ALSO GIVEN.WILL CONTINUE TO MONITOR.
--- NOTE | 2018-07-10 23:02 | NUR ---
MS RN NOTE: TRIED TO RECHECK PATIENT BLOOD SUGAR AFTER DEXTROSE 50% IV GIVEN, PATIENT REFUSED TO HAVE BLOOD SUGAR RECHECKED AND BECAME VERBALLY AGGRESSIVE. EXPLAINED RISK AND BENEFITS, BUT PATIENT CONTINUES TO REFUSE, STATES THAT HE IS FINE. WILL CONTINUE TO MONITOR.
--- NOTE | 2018-07-11 05:40 | NUR ---
MS RN NOTE: TRIED TO CHECK PATIENT BLOOD SUGAR LEVEL, PATIENT REFUSES BLOOD SUGAR CHECK. PATIENT VERBALLY AGGRESSIVE AND STATES THAT HE WOULD "PULL OFF HIS IV IF WE DON'T LEAVE HIM ALONE." PATIENT ALSO REFUSED MORNING LABS. EXPLAINED RISK AND BENEFITS, BUT PATIENT REFUSES. NO S/S OF HYPER/HYPOGLYCEMIA NOTED. WILL CONTINUE TO MONITOR.
--- NOTE | 2018-07-11 06:20 | NUR ---
MS RN NOTE: PATIENT RESTING IN BED, NO ACUTE DISTRESS NOTED. BREATHING EVEN AND UNLABORED, NO SOB NOTED. IV TO RFA IN PLACE. PATIENT CONTINUES TO REFUSE TO HAVE BLOOD SUGAR CHECK. NO S/S OF HYPER/HYPOGLYCEMIA NOTED. BED LOCKED AND IN LOWEST POSITION, CALL LIGHT IN REACH. WILL ENDORSE TO DAY NURSE TO CONTINUE WITH PLAN OF CARE.
[2018-07-11] MEDS: BLOOD SUGAR DIAGNOSTIC 1 EACH STRIP IN SCH ×4 (06:32→21:48)
--- NOTE | 2018-07-11 07:39 | NUR ---
MS RN OPENING NOTES PATIENT IS IN BED RESTING. PATIENT IN NO ACUTE DISTRESS. NO SOB NOTED. PATIENT BREATHING ON ROOM AIR. PATIENT MAINTAINED ON ISOLATION PRECAUTIONS. PATIENT BED IS LOCKED AND IN LOWEST POSITION. CALL LIGHT WITHIN REACH. WILL CONTINUE TO MONITOR.
[2018-07-11 08:00] VITALS: BP 117/74
--- NOTE | 2018-07-11 08:14 | NUR ---
MS RN NOTES PATIENT REFUSES TO HAVE BLOOD SUGAR CHECKED. PATIENT BECOMES VERBALLY AGGRESSIVE. EXPLAINED RISKS AND BENEFITS BUT PATIENT CONTINUES TO REFUSE. WILL CONTINUE TO MONITOR.
--- NOTE | 2018-07-11 08:45 | NUR ---
MS RN NOTES PATIENT REFUSED LAB BLOOD DRAW. PATIENT VERBALLY AGGRESSIVE. INFORMED PATIENT ABOUT LAB DRAW PURPOSES, CONTINUED TO REFUSE. WILL CONTINUE TO MONITOR.
[2018-07-11] MEDS: ASPIRIN 81 MG TAB.CHEW PO SCH ×2 (09:00→09:48)
[2018-07-11] MEDS: CARVEDILOL 3.125 MG TABLET PO SCH ×3 (09:00→20:42)
[2018-07-11] MEDS: PANTOPRAZOLE 40 MG TABLET.DR PO SCH ×3 (09:00→17:00)
--- NOTE | 2018-07-11 11:00 | NUR ---
MS RN NOTES PATIENT REFUSED TO TAKE MEDICATIONS THIS MORNING. OFFERED MULTIPLE TIMES TO TAKE MEDICATIONS. EXPLAINED RISKS AND BENEFITS. PATIENT STILL REFUSED. PATIENT CONTINUES TO BE VERBALLY AGGRESSIVE. PATIENT STATES "GET OUT OF HERE AND LEAVE ME ALONE, I JUST WANT TO SLEEP". WILL CONTINUE TO MONITOR.
--- NOTE | 2018-07-11 11:13 | NUR ---
MS RN NOTES PATIENT WAS SEEN AND EVALUATED BY QUINTIN BOURGEOIS. NO NEW ORDERS AT THIS TIME. CONTINUE WITH PLAN OF CARE. PATIENT REMAINS NONCOMPLIANT WITH PLAN OF CARE. WILL CONTINUE TO MONITOR.
--- NOTE | 2018-07-11 11:57 | NUR ---
Social service consult requested by QUINTIN Cooper for homelessness. Pt. is a 62 year old male who was admitted to [facility] for Leg pain and leg wounds. SW is familiar with pt. from previous admissions. SW and pt's RN Mei met with pt. bedside. Pt. is alert and oriented x 3. Pt. appears dirty and disheveled. Pt's finger nails have dirt in them. Per nurse, pt. is refusing treatment. Pt. declined to speak with SW as well stating, " I need to sleep please, come back later." SW to reassess pt. later this afternoon. Pt. appeared to have difficulty breathing, Pt's ILIANA Hurley placed the O2 mask on pt's nose so he can breathe better.
--- NOTE | 2018-07-11 12:23 | NUR ---
WOUND CARE CONSULT: PT REFUSING SKIN ASSESSMENT BUT HAS BEEN FOLLOWED BY DR KENNEY FOR DPM CONSULT. DR KENNEY AWARE OF CONSULT REQUEST. WILL SEE PRN. RECOMMENDATIONS MADE FOR SKIN PROTECTION. DISCUSSED WITH NURSING STAFF.
--- NOTE | 2018-07-11 12:55 | NUR ---
MS RN NOTES PATIENTS EKG AND CHEST XRAY RESULTS ARRIVED. CONTACTED DR. MENDEZ OF THE RESULTS. MD MADE AWARE. NO NEW ORDERS AT THIS TIME. WILL CONTINUE TO MONITOR.
[2018-07-11] MEDS: INSULIN REGULAR, HUMAN 100 UNIT/ML 3 ML VIAL SQ PRN ×2 (13:36→21:49)
[2018-07-11 16:42] VITALS: BP 138/78
--- NOTE | 2018-07-11 18:00 | NUR ---
MS RN NOTES OFFERED PATIENT PM MEDICATIONS MULTIPLE TIMES, PATIENT REFUSED. PATIENT REFUSED BLOOD SUGAR CHECKS. EXPLAINED RISK AND BENEFITS, PATIENT STILL REFUSED. PATIENT STATES " CANT YOU GUYS JUST LEAVE AND LET ME REST". WILL CONTINUE TO MONITOR.
--- NOTE | 2018-07-11 19:20 | NUR ---
MS RN OPENING NOTES Received patient sleeping in bed. Breathing even and unlabored. Not in any distress. On O2 at 2LPM via NC. Safety measures in place, call light within reach. Bed in low, locked position. Patient stable as endorsed by the morning RN. Will continue to monitor accordingly
--- NOTE | 2018-07-11 19:39 | NUR ---
MS RN CLOSING NOTES PATIENT RESTING IN BED, RESPONSIVE TO VERBAL STIMULI. PATIENT BREATHING ON OXYGEN 2L NC. PATIENT IN NO ACUTE DISTRESS. NO SOB NOTED. URINAL AT THE BEDSIDE. PATIENT WEARING DIAPER. IV INTACT. BED ALARM ON. SAFETY PRECAUTIONS ENFORCED. PATIENT REPOSITIONED AND KEPT CLEAN, DRY, AND COMFORTABLE. PATIENT MAINTAINED ON ISOLATION PRECAUTIONS. PATIENT REFUSED MEDICATION TREATMENT AND WAS NONCOMPLIANT WITH NURSING PLAN OF CARE. PATIENT IS VERBALLY AGGRESSIVE. PATIENT BED IS LOCKED AND IN LOWEST POSITION. CALL LIGHT WITHIN REACH. ENDORSED PLAN OF CARE TO PM SHIFT.
[2018-07-11 20:20] VITALS: BP 101/86
--- NOTE | 2018-07-11 21:49 | NUR ---
RN NOTES BSL checked- 149mg/dL. Patient refused insulin. Explained to the patient the importance but still refusing. Will continue to monitor
--- NOTE | 2018-07-11 23:00 | NUR ---
RN NOTES Patient informed that he will be NPO for US abdomen. Patient insisted to have something to eat- patient had some fruits
[2018-07-12] MEDS: BLOOD SUGAR DIAGNOSTIC 1 EACH STRIP IN SCH ×4 (06:44→21:46)
[2018-07-12] MEDS: INSULIN REGULAR, HUMAN 100 UNIT/ML 3 ML VIAL SQ PRN ×2 (06:44→17:54)
--- NOTE | 2018-07-12 06:45 | NUR ---
RN NOTES BSL checked- 130mg/dL. No insulin coverage per sliding scale
--- NOTE | 2018-07-12 07:29 | NUR ---
MS RN CLOSING NOTES Patient in bed, alert, oriented x 3. Breathing even and unlabored. Not in any distress. On O2 at 2L. IV access intact and patent. Isolation precautions maintained. No acute changes overnight. Safety measures in place. Endorsed MUKUL to AM RN
--- NOTE | 2018-07-12 07:32 | NUR ---
MS RN OPENING NOTES PATIENT IN BED RESTING, BREATHING ON OXYGEN NC 2L. PATIENT BREATHING IS EVEN AND UNLABORED. PATIENT IN NO ACUTE DISTRESS. NO SOB NOTED. PATIENT BED ALARM ON. PATIENT MAINTAINED ON ISOLATION PRECAUTIONS. PATIENT BED IN LOCKED AND IN LOWEST POSITION. PATIENT CALL LIGHT WITHIN REACH. WILL CONTINUE TO MONITOR.
[2018-07-12 08:00] VITALS: BP 102/72
[2018-07-12] MEDS: CARVEDILOL 3.125 MG TABLET PO SCH ×2 (09:00→21:00)
[2018-07-12] MEDS: PANTOPRAZOLE 40 MG TABLET.DR PO SCH ×2 (09:49→17:48)
[2018-07-12] MEDS: ASPIRIN 81 MG TAB.CHEW PO SCH (09:49)
[2018-07-12] MEDS ORDERED: FEE PK DOSING 1 MIN EA MC ONE (11:29)
[2018-07-12] MEDS: VANCOMYCIN 1 GM in IV D5W 250 ML IV SCH (13:41)
[2018-07-12 15:11] LABS: BASOPHILS # (AUTO) 0.1 /CMM (0.0-0.2); BASOPHILS % (AUTO) 1.1 % (0.0-2.0); EOSINOPHILS % (AUTO) 0.3 % (0.0-6.0); HEMATOCRIT 36 % (39-51); HEMOGLOBIN 11.4 g/dL (13.5-17.5); LYMPHOCYTES # (AUTO) 1.1 /CMM (0.8-4.8); LYMPHOCYTES % (AUTO) 22.6 % (20.0-44.0); MEAN CORPUSCULAR HGB CONC 32 g/dl (31.0-36.0); MEAN CORPUSCULAR VOLUME 88 fL (80-96); MONOCYTES # (AUTO) 0.7 /CMM (0.1-1.30); NEUTROPHILS # (AUTO) 3.1 /CMM (1.8-8.9); PLATELET COUNT (AUTO) 81 /CMM (150-450); RED BLOOD CELL COUNT(AUTO) 4.11 MIL/uL (4.5-6.0)
[2018-07-12 15:25] LABS: ALANINE AMINOTRANSFERASE 31 U/L (12-78); ALBUMIN 2.3 g/dL (3.4-5.0); ALKALINE PHOSPHATASE 110 U/L (46-116); ASPARTATE AMINOTRANSFERASE 43 U/L (15-37); BILIRUBIN,TOTAL 1.7 mg/dL (0.2-1.0); CALCIUM, SERUM 8.4 mg/dL (8.5-10.1); CARBON DIOXIDE 30 mmol/L (21-32); CHLORIDE 101 mmol/L (98-107); CREATININE 1.3 mg/dL (0.6-1.3); GLUCOSE 165 mg/dL (74-106); MAGNESIUM 1.6 mg/dL (1.8-2.4); PHOSPHORUS 3.2 mg/dL (2.5-4.9); POTASSIUM 4.3 mmol/L (3.5-5.1); SODIUM SERUM 135 mmol/L (136-145); TOTAL PROTEIN, SERUM 6.6 g/dL (6.4-8.2); UREA NITROGEN, BLOOD 38 mg/dL (7-18)
--- NOTE | 2018-07-12 15:43 | NUR ---
VANI met with pt. bedside for an assessment. Pt. is alert and oriented x 3, however continues to appear uncomfortable due to having problems with breathing. Pt. is on nasal cannula 2L at this time. Pt. states he is homeless and [place] living [address] [place] [address] Pt. is not long term appropriate and will need placement in a board and care or SNF if deemed appropriate. VANI updated pt's mental health case manager Cara with the aforementioned information.
[2018-07-12 16:42] LABS: CHOLESTEROL 74 mg/dL (<200); HDL CHOLESTEROL < 10 mg/dL (40-60); LDL 63 mg/dL (0-99); TRIGLYCERIDES 58 mg/dL (30-150)
[2018-07-12 16:48] LABS: BAND % (MANUAL) 2 % (0.0-5.0); LYMPHOCYTES % (MANUAL) 13 % (16-48); MONOCYTES % (MANUAL) 6 % (0-11.0); NEUTROPHILS % (MANUAL) 79 (42-76)
[2018-07-12] MEDS ORDERED: MAGNESIUM OXIDE 400 MG TABLET PO ONE (18:00)
[2018-07-12] MEDS ORDERED: Magnesium 1GM/D5W 100ML PREMIX 100 ML IV SCH (18:00)
--- NOTE | 2018-07-12 19:01 | NUR ---
MS RN CLOSING NOTES PATIENT AWAKE AND IN BED RESTING. PATIENT RESPONDS TO VERBAL STIMULI. PATIENT BREATHING ON OXYGEN NC 2L. PATIENT BREATHING IS EVEN AND UNLABORED. PATIENT IN NO ACUTE DISTRESS. NO SOB NOTED. PATIENT IV INTACT. PATIENT REMAINS TO BE HESITANT WITH PLAN OF CARE. PATIENT REFUSES MEDICATION AND TREATMENT FROM TIME TO TIME. PATIENT KEPT DRY, CLEAN, AND COMFORTABLE. MAINTAINED ON ISOLATION PRECAUTIONS. PATIENT BED IN LOCKED AND LOWEST POSITION. PATIENT CALL LIGHT WITHIN REACH. SAFETY PRECAUTIONS IN PLACE. WILL ENDORSE TO PM SHIFT FOR CONTINUITY OF CARE.
--- NOTE | 2018-07-12 19:30 | NUR ---
RN NOTES RECEIVED PT. AWAKE ON BED, A/OX3, PT.REFUSED TO BE TURN, O2 AT 3 L SAT 93%, CALL LIGHT WITHIN REACH, SIDERAILSUPX2, CONTINUE TO MONITOR
[2018-07-12 20:00] VITALS: BP 99/67
--- NOTE | 2018-07-12 22:00 | NUR ---
RN NOTES ENDORSED PT. TO ANOTHER NURSE (REGISTRY NURSE), PT. DENIES PAIN, NO SOB, STILL REFUSING TO BE TOUCH, CALL LIGHT WITHIN REACH, SIDERAILSUPX2, ENDORSED
[2018-07-12 22:13] LABS: THYROID STIMULATING HORMONE 14.274 uIU/mL (0.358-3.74)
[2018-07-13] MEDS: VANCOMYCIN 1 GM in IV D5W 250 ML IV SCH ×2 (06:29→23:33)
[2018-07-13] MEDS: BLOOD SUGAR DIAGNOSTIC 1 EACH STRIP IN SCH ×4 (07:05→22:05)
[2018-07-13 08:00] VITALS: BP 125/71
--- NOTE | 2018-07-13 08:00 | NUR ---
MS/RN - Assessment Patient is awake, A/O x 3, c/o not feeling rested wanted to sleep, afebrile, no apparent distress seen, on oxygen at 2lpm via NC. Lab results pending at this time. Skin noted with BLE wounds/ulceration, followed by Dr. Shaw. Patient is independent with bed mobility. Contact precautions maintained for hx of ESBL urine/wounds. Plan of care discussed with patient and in agreement. Will continue with current medical management.
[2018-07-13] MEDS: ASPIRIN 81 MG TAB.CHEW PO SCH (08:28)
[2018-07-13] MEDS: PANTOPRAZOLE 40 MG TABLET.DR PO SCH ×2 (08:29→16:05)
[2018-07-13] MEDS: CARVEDILOL 3.125 MG TABLET PO SCH (08:29)
[2018-07-13 09:14] LABS: IMMUNOGLOBULIN A, SERUM 419 mg/dL (61-437); IMMUNOGLOBULIN G, SERUM 2235 mg/dL (700-1600); IMMUNOGLOBULIN M, SERUM 271 mg/dL (20-172)
--- NOTE | 2018-07-13 09:30 | NUR ---
MS/RN - Notes Patient c/o difficulty breathing/shortness of breath, currently on oxygen at 2lpm via NC, notified RT to give neb treatment as ordered. Reviewed CXR and US abdomen result, showed large bilateral pleural effusion. Will relay to .
--- NOTE | 2018-07-13 09:40 | NUR ---
MS/RN - S/b Dr. Fay Seen and examined by Dr. Fay with orders, noted and carried out.
--- NOTE | 2018-07-13 10:00 | NUR ---
MS/RN - S/b Hospitalist Seen and examined by Abbey Cooper NP with orders, noted and carried out.
[2018-07-13] MEDS ORDERED: SPIR25TA6 PO (10:03)
[2018-07-13] MEDS ORDERED: SULF1TAB48 PO (10:03)
[2018-07-13] MEDS ORDERED: CARV3.122 PO (10:03)
[2018-07-13] MEDS ORDERED: FURO-144 PO (10:03)
[2018-07-13] MEDS: FUROSEMIDE 40 MG/4 ML VIAL IV SCH ×3 (10:27→17:55)
[2018-07-13] MEDS: Magnesium 1GM/D5W 100ML PREMIX 100 ML IV SCH ×2 (10:27→11:28)
[2018-07-13] MEDS: INSULIN REGULAR, HUMAN 100 UNIT/ML 3 ML VIAL SQ PRN (11:46)
[2018-07-13 11:53] LABS: CALCIUM, SERUM 8.6 mg/dL (8.5-10.1); CREATININE 1.3 mg/dL (0.6-1.3); MAGNESIUM 1.7 mg/dL (1.8-2.4); POTASSIUM 4.6 mmol/L (3.5-5.1)
--- NOTE | 2018-07-13 15:00 | NUR ---
MS/RN - Notes Patient sleeping at this time, no s/s of pain, not in any form of distress. Will continue to monitor closely.
[2018-07-13 16:00] VITALS: BP 99/66
[2018-07-13] MEDS: FERROUS SULFATE (325 MG) 325 MG/TAB TABLET PO SCH (16:05)
[2018-07-13] MEDS: ALBUTEROL FS 2.5 MG/0.5 ML VIAL.NEB NEB PRN ×2 (16:11→20:21)
--- NOTE | 2018-07-13 18:00 | NUR ---
MS/RN - End of shift summary Patient still c/o difficulty breathing, on oxygen at 2lpm via NC, SpO2 90-92%, Lasix 40 mg IVP x 3 doses given, blood sugar controlled, remain afebrile, CT chest w/o contrast pending. All needs attended and met. Will continue with current medical management.
--- NOTE | 2018-07-13 19:30 | NUR ---
rn openeing note. bedside report recieved from enrrique patterson. patient seen in bed. poc reveiwed questions concerns addressed. patient not wearing oxygen. reapplied nc at 2lnc. patient states ,"I just don't like wearing that thing." patient reinforced that his oxygen sats have been low and he should continuously wear it. . patient verbalized understanding. patient sat up to side of bed to begin eating dinner. denies sob or dizzineess. bed alarm active call light in reach bed down locked.
[2018-07-13 20:00] VITALS: BP 108/63
[2018-07-13] MEDS: CARVEDILOL 12.5 MG TABLET PO SCH (20:20)
[2018-07-13] MEDS: HYDROCODONE/APAP 5/325MG 1 EACH TABLET PO PRN (21:59)
--- NOTE | 2018-07-13 22:47 | NUR ---
patient refusing to wear oxygen. patient seen in room. with oxygen off. patient encouraged to wear oxygen. patient states "Patient states i dont want to wear it. I will wear it when i need it. patient is a bit lethargic but does not appear to be short of breath. spo2 noted to be 85, 88% severe anasarca swollen hands have cap refill less then 3 seconds which may be preventing accurate results. will cont to monitor. Addendum: 07/13/18 at 2319 by HASEEB CREWS RN patient sat at the bed side and agreed to wear oxygen. patient placed on 3 lnc and is saturating at 99% to 100 percent after application of sticker spo2 sensor. will cont to monitor. Addendum: 07/14/18 at 0640 by HASEEB CREWS RN [id number] patient agreeing to wear oxygen on 2lnc patient sat at 98% will cont to monitor.
--- NOTE | 2018-07-14 06:40 | NUR ---
rn pm closing note. cork slabs sawyer unable to draw lab. patient in bed arousable by voice patient lethargic. in no apparent distress. patient wearing nc oxygen 2lnc saturating at 96% on room air in no apprent respiratory distress. bed down locked patient repositioned with arms elevated and legs elevated. labor trainer states she was not able to draw labs and will be sending up another water filtration technician later this morning because he hard stick.
--- NOTE | 2018-07-14 08:00 | NUR ---
MS RN OPENING NOTES Received Patient asleep in bed. Patient noted lethargic and arousable by name. A/O x 3. Noted BP 79/62 with no acute distress. Elevated BILATERAL LOWER EXTREMITIES. Will continue to monitor. Denies pain. On continuous 2LPM O2 via NC. 20g PIV on RAC clean, dry, intact and flushing well. Noted edema on LEFT HAND, elevated with pillow. Safety precautions in place. Bed locked and set to lowest position with side rails x 2 up. Will continue to monitor.
[2018-07-14 08:08] LABS: *SPE A/G RATIO 0.7 (0.7-1.7); *SPE ALBUMIN 2.8 g/dL (2.9-4.4); *SPE ALPHA-1-GLOBULIN 0.3 g/dL (0.0-0.4); *SPE ALPHA-2-GLOBULIN 0.4 g/dL (0.4-1.0); *SPE BETA GLOBULIN 0.9 g/dL (0.7-1.3); *SPE GLOBULIN, TOTAL 3.8 g/dL (2.2-3.9); *SPE M-SPIKE Not Observed g/dL (Not Observed); *SPEGAMMA GLOBULIN 2.2 g/dL (0.4-1.8)
[2018-07-14] MEDS: BLOOD SUGAR DIAGNOSTIC 1 EACH STRIP IN SCH ×4 (08:15→22:20)
[2018-07-14] MEDS: CARVEDILOL 12.5 MG TABLET PO SCH ×2 (09:00→21:00)
--- NOTE | 2018-07-14 09:40 | NUR ---
MS RN NOTES Patient taken to Radiology Dept. for CT scan at this time.
--- NOTE | 2018-07-14 09:55 | NUR ---
MS RN NOTES Patient returned from CT Scan from Radiology Dept at this time. Patient in stable condition. Will continue to monitor.
[2018-07-14] MEDS: ASPIRIN 81 MG TAB.CHEW PO SCH (10:02)
[2018-07-14] MEDS: PANTOPRAZOLE 40 MG TABLET.DR PO SCH ×2 (10:02→17:41)
[2018-07-14] MEDS: FERROUS SULFATE (325 MG) 325 MG/TAB TABLET PO SCH ×2 (10:03→17:42)
[2018-07-14 11:41] LABS: BASOPHILS % (AUTO) 0.8 % (0.0-2.0); EOSINOPHILS % (AUTO) 0.3 % (0.0-6.0); HEMATOCRIT 36 % (39-51); HEMOGLOBIN 11.7 g/dL (13.5-17.5); LYMPHOCYTES # (AUTO) 0.9 /CMM (0.8-4.8); LYMPHOCYTES % (AUTO) 24.8 % (20.0-44.0); MEAN CORPUSCULAR HGB CONC 32 g/dl (31.0-36.0); MEAN CORPUSCULAR VOLUME 89 fL (80-96); MONOCYTES # (AUTO) 0.5 /CMM (0.1-1.30); MONOCYTES % (AUTO) 13.4 % (2.0-12.0); NEUTROPHILS # (AUTO) 2.3 /CMM (1.8-8.9); NEUTROPHILS % (AUTO) 60.7 % (43.0-81.0); RED BLOOD CELL COUNT(AUTO) 4.07 MIL/uL (4.5-6.0); WHITE BLOOD COUNT (AUTO) 3.7 K/uL (4.3-11.0)
[2018-07-14 11:53] LABS: ALBUMIN 2.4 g/dL (3.4-5.0); BILIRUBIN,TOTAL 1.6 mg/dL (0.2-1.0); CALCIUM, SERUM 8.4 mg/dL (8.5-10.1); CREATININE 1.4 mg/dL (0.6-1.3); MAGNESIUM 1.9 mg/dL (1.8-2.4); PHOSPHORUS 4.4 mg/dL (2.5-4.9); POTASSIUM 5.1 mmol/L (3.5-5.1); TOTAL PROTEIN, SERUM 6.7 g/dL (6.4-8.2)
[2018-07-14 11:54] LABS: PLATELET COUNT (AUTO) 37 /CMM (150-450)
[2018-07-14 13:08] LABS: BAND % (MANUAL) 3 % (0.0-5.0); EOSINOPHILS % (MANUAL) 1 % (0-4); LYMPHOCYTES % (MANUAL) 21 % (16-48); MONOCYTES % (MANUAL) 12 % (0-11.0); NEUTROPHILS % (MANUAL) 63 (42-76)
[2018-07-14 16:00] VITALS: BP 78/54
[2018-07-14] MEDS: HYDROCODONE/APAP 5/325MG 1 EACH TABLET PO PRN (17:45)
--- NOTE | 2018-07-14 18:00 | NUR ---
MS RN NOTES BS-48, rechecked BS-47. Encouraged PO intake. Provided [place] Juice. Patient states that he "just wants to sleep" and does not want to be bothered. Will continue to monitor.
[2018-07-14] MEDS ORDERED: PHYTONADIONE INJ 10 MG/1 ML AMPUL SQ ONE (18:30)
[2018-07-14] MEDS: VANCOMYCIN 1 GM in IV D5W 250 ML IV SCH (18:55)
[2018-07-14] MEDS: ONDANSETRON HCL/PF 4 MG/2 ML VIAL IVP PRN (18:55)
--- NOTE | 2018-07-14 19:20 | NUR ---
MS RN CLOSING NOTES Patient resting in bed and watching TV. A/O x 2. Patient occasionally moaning in pain and states that he "just wants to go to sleep". BILATERAL LOWER EXTREMITIES dry wounds open to air. BLE elevated. Patient stated moderate pain. Administered Burt 5-325mg at 1745. Will endorse to oncoming shift for intervention. On continuous 2LPM O2 via NC with no respiratory distress. 20g PIV on RAC clean, dry, intact and flushing well. Noted edema on BILATERAL HANDS, elevated with pillow. Safety precautions in place. Bed locked and set to lowest position with side rails x 2 up. Will endorse plan of care to oncoming shift.
--- NOTE | 2018-07-14 19:30 | NUR ---
RECEIVED PATIENT IN BED AWAKE. AO X 2, ABLE TO MAKE NEED KNOWN. NO ACUTE DISTRESS NOTED. DENIES ANY PAIN AT THIS TIME. IV SITE PATENT, INTACT; FLUSHED. GENERALIZED EDEMA; WEEPING. SAFETY REMINDERS GIVEN. ON LOW BED WITH BILATERAL UPPER SIDE RAILS UP. CALL MG WITHIN EASY REACH. WILL CONTINUE TO MONITOR. CONTACT ISOLATION FOR ESBL IN URINE MAINTAINED.
[2018-07-14 20:00] VITALS: BP 90/36
--- NOTE | 2018-07-14 22:18 | NUR ---
MADE AWARE OF BS 53. PATIENT HAS POOR INTAKE. STAT RANDOM BLOOD SUGAR ORDERED. DR. RIOS ALSO ORDERED D10W [address] OF DEXTROSE INJECTION; NOTED AND CARRIED OUT.
[2018-07-14] MEDS ORDERED: DEXTROSE 10% IN WATER 250 ML BAG IV ONE (22:30)
[2018-07-15] VITALS (72 sets, daily range): BP systolic 52–150; BP diastolic 25–81
--- NOTE | 2018-07-15 01:20 | NUR ---
PATIENT BECAME UNRESPONSIVE HE WAS BEING CLEANED. RANDOLPH SO CALLED. CPR STARTED. BS 48. CARE OF PATIENT TRANSFERRED TO [facility] BY DR. MILTON.
--- NOTE | 2018-07-15 01:24 | NUR ---
RESPONDED TO CODE BLUE FOR THIS PATIENT ON 3RD FLOOR. INTUBATION DONE BY DR. CISNEROS WITH ETT 7.0; SECURED AT 23 AT THE LIP. POSITIVE COLOR CHANGE ON CO2 DETECTOR. BILATERAL CLEAR BREATH SOUNDS AND CHEST RISE NOTED. PT WAS TRANSPORTED TO ICU 253. PT PLACED ON VENT AT THIS TIME ON AC 14, 550, 100%. VENT PLUGGED INTO RED OUTLET. BIOMEDICAL ENGINEERING PROFESSOR DONE. ALARMS ARE AUDIBLE AND AMBU BAG PLACED AT BEDSIDE. WILL CONT TO MONITOR PATIENT.
--- NOTE | 2018-07-15 01:53 | NUR ---
TRANSFERRED PATIENT TO ICU.
--- NOTE | 2018-07-15 02:05 | NUR ---
RECEIVED PT IN CRITICAL CONDITION S/P CODE BLUE. PT ARRIVED ON UNIT INTUBATED WITH RT AT BEDSIDE WITH BVP GIVING BREATHS TO PT. PT PLACED ON MECHANICAL VENT BY RT WITH VENT SETTING @ AC 14 TV 550 FIO2 100% PEEP 0. PT PLACED ON TELE WITH SR WITH BBB. TEMPLETON CATHETER PLACED WITH CLOUDY OLIVIER COLORED URINE DRAINING. LEFT EJ 18G PLACED WITH EPI @ 2MCG AND DOPAMINE @ 2MCG. BED IN LOW LOCK POSITION WITH RIALS UP X 2. CALL LIGHT WITHIN REACH AND ALL SAFETY MEASURES ENSURED AND CARRIED OUT. WILL CONTINUE TO MONITOR PT.
[2018-07-15] MEDS ORDERED: EPINEPHRINE (1:1000) 1 MG/ML AMPUL ONE (02:13)
[2018-07-15] MEDS: EPINEPHRINE (1:1000) 1 MG in IV D5W 250 ML IV PRN ×4 (02:26→11:26)
--- NOTE | 2018-07-15 02:30 | NUR ---
REPORT GIVEN TO YUKO BARRIENTOS FOR CONTINUITY OF CARE.
[2018-07-15] MEDS ORDERED: DOPamine 400 MG/D5W 250 ML RTU PIGGYBACK IV PRN (03:00)
[2018-07-15] MEDS ORDERED: DOPamine 400MG/D5W 250ML RTU 250 ML IV ONE (04:42)
[2018-07-15] MEDS: DOPamine 400 MG in IV D5W 250 ML IV PRN ×2 (05:05→07:53)
[2018-07-15 05:25] LABS: APPEARANCE,URINE CLOUDY (CLEAR); BILIRUBIN,URINE 1+ (NEGATIVE); BLOOD, URINE NEGATIVE Ery/uL (NEGATIVE); COLOR,URINE DARK YELLO (YELLOW); KETONES,URINE NEGATIVE (NEGATIVE); LEUKOCYTE ESTERASE ,URINE NEGATIVE (NEGATIVE); NITRITE, URINE NEGATIVE (NEGATIVE); PH,URINE 5.5 (5.0-8.0); PROTEIN,URINE 2+ mg/dl (NEGATIVE); UGLUCOSE NEGATIVE (NEGATIVE)
--- NOTE | 2018-07-15 06:08 | NUR ---
ADVANCED ETT 3CM , FROM 23 CM TO 26 CM PER MD'S ORDER. RN YUKO NOTIFIED
[2018-07-15 06:20] LABS: RBC,URINE 0-2 /HPF (0-2); SQUAMOUS EPITHELIAL CELL,UR Rare /HPF (None Seen)
[2018-07-15 06:21] LABS: BACTERIA,URINE Moderate /HPF (None Seen); WBC,URINE 0-2 /HPF (0-3)
[2018-07-15 06:22] LABS: URINE AMORPHOUS URATE Few /HPF (None Seen)
[2018-07-15] MEDS ORDERED: NOREPINEPHRINE 4 MG/4 ML AMPUL IV ONE ×2 (06:23→23:50)
[2018-07-15] MEDS: NOREPINEPHRINE 16 MG in IV D5W 500 ML IV PRN ×2 (06:31→16:42)
--- NOTE | 2018-07-15 07:09 | NUR ---
PLANT WRAPPER INITIAL NOTES PT RECEIVED INTUBATED S/P CARDIOPULMONARY ARREST AROUND 1AM. VENT SETTINGS ASSESSED FOR ACCURACY. PT HAS AN ETT SIZED 7.0 AT 26 AT THE LIP. AC 14, TV 600, FIO2 100% AND A PEEP OF 5. PT TOLERATING SETTINGS WELL AND SATING AT 100%. LEFT EJ NOTED TO BE INFUSING DOPAMINE AND EPI DRIPS. PT MAXED OUT ON BOTH. PT ALSO RECEIVING LEVO DRIP AT 10MCG/MIN. WILL TITRATE PT'S CONDITION PERMITS. BED IN LOW LOCKED POSITION, SIDE RAILS UP X3, SAT[place] LIGHT WITHIN REACH, ISOLATION PRECAUTIONS OBSERVED. WILL CONTINUE TO MONITOR
[2018-07-15] MEDS: DEXTROSE 50%-WATER 50 ML DISP.SYRIN IV PRN (07:50)
[2018-07-15 08:39] LABS: ABG BASE EXCESS -7.4 mmol/L; ABG OXYGEN SATURATION 94.8 % (92.0-98.5); ABG PCO2 48.3 mmHg (35.0-45.0); ABG PH 7.235 (7.350-7.450); ABG PO2 91.3 mmHg (75.0-100.0); AaDO2 573.4 mmHg; COHb 0.7 % (0.5-1.5); MetHb 0.4 % (0.0-1.5); O2Hb 93.8 % (94.0-97.0); SITE, ABG Right Radial; VENT MODE, BG AC 14 550 100% +0
[2018-07-15] MEDS: PANTOPRAZOLE 40 MG TABLET.DR PO SCH ×2 (09:00→16:40)
[2018-07-15] MEDS: BLOOD SUGAR DIAGNOSTIC 1 EACH STRIP IN SCH ×4 (09:36→22:56)
[2018-07-15] MEDS: HYDROCORTISONE SOD SUCCINATE 100 MG/2 ML VIAL IV SCH ×3 (09:36→16:40)
--- NOTE | 2018-07-15 09:51 | NUR ---
SPOKEN TO ICU CIVILIAN JAIL OFFICER AND HE MENTIONED THAT RN MORGAN SAID U/S GUIDED THORACENTESIS WILL NOT HAPPEN TODAY. PLATELETS TOO LOW FOR PROCEDURE TO BE DONE.
[2018-07-15] MEDS ORDERED: DOPamine 400 MG in IV D5W 250 ML IV PRN (10:30)
--- NOTE | 2018-07-15 10:37 | NUR ---
ARTERIAL LINE INSERTION ART LINE INSERTED AT LEFT RADIAL ARTERY UNDER ULTRASOUND GUIDANCE USING STERILE TECHNIQUE. GUIDEWIRE USED AND CONFIRMED TO BE REMOVED. ART LINE WAS SECURED IN PLACE USING TWO SUTURE WITH PROLENE 3-0. TOLERATED WELL WITH MINIMAL BLOOD LOSS. EBL 2 ML. ART LINE WORKING PROPERLY. BIOPATCH PLACED AND COVERED WITH TEGADERM.
[2018-07-15 10:39] LABS: BASOPHILS % (AUTO) 0.3 % (0.0-2.0); HEMATOCRIT 36 % (39-51); HEMOGLOBIN 10.9 g/dL (13.5-17.5); LYMPHOCYTES # (AUTO) 0.6 /CMM (0.8-4.8); LYMPHOCYTES % (AUTO) 9.5 % (20.0-44.0); MEAN CORPUSCULAR HGB CONC 30 g/dl (31.0-36.0); MEAN CORPUSCULAR VOLUME 93 fL (80-96); MONOCYTES # (AUTO) 0.8 /CMM (0.1-1.30); MONOCYTES % (AUTO) 12.2 % (2.0-12.0); NEUTROPHILS # (AUTO) 4.9 /CMM (1.8-8.9); RED BLOOD CELL COUNT(AUTO) 3.86 MIL/uL (4.5-6.0); WHITE BLOOD COUNT (AUTO) 6.3 K/uL (4.3-11.0)
[2018-07-15] MEDS: PROPOFOL 100 ML IV PRN (10:46)
[2018-07-15 10:50] LABS: PLATELET COUNT (AUTO) 37 /CMM (150-450)
[2018-07-15 11:03] LABS: ALBUMIN 2.1 g/dL (3.4-5.0); BILIRUBIN,TOTAL 3.5 mg/dL (0.2-1.0); CALCIUM, SERUM 7.6 mg/dL (8.5-10.1); MAGNESIUM 1.6 mg/dL (1.8-2.4); PHOSPHORUS 4.7 mg/dL (2.5-4.9); POTASSIUM 4.8 mmol/L (3.5-5.1); TOTAL PROTEIN, SERUM 6.4 g/dL (6.4-8.2)
[2018-07-15 11:45] LABS: ABG BASE EXCESS -11.3 mmol/L; ABG OXYGEN SATURATION 93.6 % (92.0-98.5); ABG PCO2 32.6 mmHg (35.0-45.0); ABG PH 7.267 (7.350-7.450); ABG PO2 79.3 mmHg (75.0-100.0); AaDO2 601.1 mmHg; COHb 0.8 % (0.5-1.5); MetHb 0.5 % (0.0-1.5); O2Hb 92.4 % (94.0-97.0); SITE, ABG A-Line; VENT MODE, BG AC 20 600 100% +0
[2018-07-15 11:54] LABS: BAND % (MANUAL) 3 % (0.0-5.0); LYMPHOCYTES % (MANUAL) 7 % (16-48); MONOCYTES % (MANUAL) 9 % (0-11.0); NEUTROPHILS % (MANUAL) 81 (42-76)
[2018-07-15] MEDS ORDERED: VANCOMYCIN 0.75 GM in IV D5W 250 ML IV SCH (12:00)
[2018-07-15] MEDS ORDERED: SODIUM BICARBONATE SYR 50 MEQ/50 ML DISP.SYRIN IV ONE (12:14)
[2018-07-15] MEDS ORDERED: DEXTROSE 50%-WATER 50 ML DISP.SYRIN IV ONE (12:14)
[2018-07-15] MEDS ORDERED: EPINEPHRINE (1:10,000) SYRINGE 1 MG/10 ML DISP.SYRIN IVP ONE (12:14)
[2018-07-15] MEDS ORDERED: EPINEPHRINE (1:1000) 1 MG/ML AMPUL SUBCUT ONE (12:14)
[2018-07-15] MEDS: MEROPENEM 500 MG in IV NS 0.9% 50 ML IV SCH (12:40)
[2018-07-15] MEDS ORDERED: DOPAMINE 800MG/D5W 250ML RTU PIGGYBACK IV PRN (13:00)
[2018-07-15] MEDS ORDERED: EPINEPHRINE (1:1000) 2 MG in IV D5W 250 ML IV PRN (13:00)
[2018-07-15] MEDS: DOPamine 800 MG in IV D5W 250 ML IV PRN (14:04)
--- NOTE | 2018-07-15 14:39 | NUR ---
EMBROIDERY ASSISTANT NOTES: URINE OUTPUT ACCOUNT DEVELOPMENT ASSOCIATE KYLE MADE AWARE OF PT'S LOW URIN OUTPUT REPORTED BY NIGHTSHIFT RN AND CURRENT OUTPUT. NO NEW ORDERS AT THIS TIME. F/C CATHETER REMAINS INTACT AND DRAINING
[2018-07-15] MEDS ORDERED: IV Sodium Chloride 3% 500 ML 500 ML IV ONE (15:00)
[2018-07-15 16:10] LABS: CALCIUM, SERUM 8.2 mg/dL (8.5-10.1); CREATININE 1.7 mg/dL (0.6-1.3); POTASSIUM 5.6 mmol/L (3.5-5.1)
[2018-07-15 16:16] LABS: ALBUMIN 1.7 g/dL (3.4-5.0); BILIRUBIN,TOTAL 1.5 mg/dL (0.2-1.0); TOTAL PROTEIN, SERUM 5.5 g/dL (6.4-8.2)
--- NOTE | 2018-07-15 16:28 | NUR ---
EXPLOSIVES ENGINEER NOTES: CRITICAL VALUES REPEAT CMP DRAWN AND RESULTED PER VISUALIZATION DEVELOPER ORDER. VISUALIZATION DEVELOPER KYLE MADE AWARE OF PT'S INCREASED LACTIC ACID AND CURRENT LAB VALUES. VISUALIZATION DEVELOPER STATES THAT PT'S CRITICAL LABS ARE MORE SUGGESTIVE OF HYPOXIA RATHER THAN AN INFECTION. PT HAS A CURRENT FIO2 OF 100%. TELEPHONE ORDER ALSO OBTAINED FOR 2GM MAGNESIUM FOR REPLACEMENT. VISUALIZATION DEVELOPER ALSO STATES THAT PT NO LONGER NEEDS 3% NACL INFUSION GIVEN CURRENT SODIUM LEVEL. WILL D/C ORDER. DRIP NOT YET STARTED. WILL CARRY OUT ALL ORDERS DIRECTED
[2018-07-15] MEDS ORDERED: Magnesium 1GM/D5W 100ML PREMIX PIGGYBACK IV ONE (16:30)
[2018-07-15] MEDS: Magnesium 1GM/D5W 100ML PREMIX 100 ML IV SCH ×2 (16:40→18:07)
[2018-07-15] MEDS ORDERED: SODIUM POLYSTYRENE SULFONATE 15 G/60 ML BOTTLE PO ONE (17:00)
[2018-07-15 17:23] LABS: ABG PCO2 21.8 mmHg (35.0-45.0); ABG PH 7.412 (7.350-7.450); ABG PO2 111.7 mmHg (75.0-100.0); AaDO2 579.5 mmHg; COHb 0.7 % (0.5-1.5); MetHb 0.5 % (0.0-1.5); O2Hb 96.8 % (94.0-97.0); SITE, ABG A-Line; VENT MODE, BG AC 20 600 100% +0
[2018-07-15] MEDS: DEXTROSE 10% IN WATER 250 ML BAG IV PRN ×2 (17:24→23:00)
[2018-07-15] MEDS: Z GUARD REMEDY 2 OZ OINT TP PRN (18:06)
--- NOTE | 2018-07-15 18:22 | NUR ---
RT NOTE PT REMAINS MECHANICALLY VENTILATED VIA 7.0 ETT 26 CM AT LIP. CUFF INFLATED. ETT SECURE. VENTILATOR SETTINGS PRESCRIBED. ALARMS SET PER PROTOCOL AND AUDIBLE. VENT PLUGGED IN TO RED OUTLET. AMBU BAG AT BED SIDE. NO DISTRESS NOTED AT MOMENT. Addendum: 07/15/18 at 1822 by LESLEY MARSHALL RT Amended: Links added.
--- NOTE | 2018-07-15 18:52 | NUR ---
INSTALLMENT AGENT CLOSING NOTES NO ACUTE CHANGES IN PT'S CONDITION DURING SHIFT. RIGHT UPPER ARM PICC LINE REMAINS PATENT AND INTACT. A-LINE REMAINS PATENT. PT'S BP STABLE AT THIS TIME ON LEVO DRIP. EPI AND DOPAMINE DRIP TITRATED. F/C INTACT. SAFETY MEASURES REMAIN IN PLACE. WILL ENDORSE TO NIGHTSHIFT RN FOR MUKUL
[2018-07-15] MEDS ORDERED: GLUCERNA 1.2 1,000 ML BOTTLE NG PRN (19:00)
--- NOTE | 2018-07-15 19:15 | NUR ---
SCOOTER MECHANIC SBP 83 TITRATED LEVOPHED TO 26 MCG/MIN; CONTINUE TO MONITOR.
[2018-07-15 19:17] LABS: CALCIUM, SERUM 7.4 mg/dL (8.5-10.1); CREATININE 2.1 mg/dL (0.6-1.3); POTASSIUM 4.7 mmol/L (3.5-5.1)
--- NOTE | 2018-07-15 19:30 | NUR ---
SEWER PIPE SORTER RCD PT S/P ARREST. NST ON MONITOR. LOW SBP TITRATING LEVOPHED PER PROTOCOL. PT SEDATED ON PROPOFOL @ 5 MCG/KG/MIN; WELL BLSW RESTRAINTS TO PREVENT SELF EXTUBATION. INTUBATED 7@ 26 W/VENT SETTINGS AC 20 600 100%; PT WITH INTERMITTENT EPISODES OF DESATURATION. PT WITH COLD AND PURPLE FINGERS AND TOES. EF 15% TEMPLETON CATH IN PLACE WITH NO URINE OUTPUT NOTED. J CARLOS PICC W/NS @ TKO. FLUSHED AND NOTED WITH GOOD BLOOD RETURN. PT WITH MULTIPLE SKIN ISSUES; BL ELBOWS AND HEELS NOTED TO BE PURPLE/DTI; SACRAL DTI AND LOWER BACK DTI; ALL AREAS PROTECTED WITH MEPILEX; WILL TURN AND REPOSITION PT CONDITION PERMITS. ALSO BLE ULCERATIONS AND OPEN WOUNDS COVERED WITH MEPILEX. CONTINUE TO MONITOR.
--- NOTE | 2018-07-15 19:35 | NUR ---
MEDICAL PRACTITIONERS STARTED GLUCERNA @ 20 ML/HR CONTINUE TO MONITOR.
--- NOTE | 2018-07-15 23:00 | NUR ---
ELECTRIC METER TESTER HELPER BLOOD GLUCOSE 41. ADMINISTERED D 10. NOTIFIED
[2018-07-16] VITALS (107 sets, daily range): BP systolic 77–108; BP diastolic 50–80
[2018-07-16] MEDS: PROPOFOL 100 ML IV PRN ×3 (00:55→23:50)
[2018-07-16] MEDS: MEROPENEM 500 MG in IV NS 0.9% 50 ML IV SCH ×2 (00:55→13:40)
[2018-07-16] MEDS: NOREPINEPHRINE 16 MG in IV D5W 500 ML IV PRN ×4 (00:56→22:36)
--- NOTE | 2018-07-16 04:00 | NUR ---
FORECLOSURE SPECIALIST GLUCERNA INCREASED TO 30 ML/HR; CONTINUE TO MONITOR.
[2018-07-16 04:50] LABS: BASOPHILS % (AUTO) 0.1 % (0.0-2.0); HEMATOCRIT 37 % (39-51); LYMPHOCYTES # (AUTO) 0.8 /CMM (0.8-4.8); LYMPHOCYTES % (AUTO) 9.6 % (20.0-44.0); MEAN CORPUSCULAR HGB CONC 33 g/dl (31.0-36.0); MEAN CORPUSCULAR VOLUME 87 fL (80-96); MONOCYTES # (AUTO) 0.9 /CMM (0.1-1.30); MONOCYTES % (AUTO) 10.4 % (2.0-12.0); NEUTROPHILS # (AUTO) 6.9 /CMM (1.8-8.9); NEUTROPHILS % (AUTO) 79.9 % (43.0-81.0); RED BLOOD CELL COUNT(AUTO) 4.22 MIL/uL (4.5-6.0); WHITE BLOOD COUNT (AUTO) 8.6 K/uL (4.3-11.0)
[2018-07-16 04:56] LABS: PLATELET COUNT (AUTO) 36 /CMM (150-450)
[2018-07-16 05:03] LABS: ALBUMIN 2.2 g/dL (3.4-5.0); BILIRUBIN,TOTAL 1.7 mg/dL (0.2-1.0); CALCIUM, SERUM 8.2 mg/dL (8.5-10.1); CREATININE 2.2 mg/dL (0.6-1.3); MAGNESIUM 2.1 mg/dL (1.8-2.4); TOTAL PROTEIN, SERUM 6.4 g/dL (6.4-8.2)
[2018-07-16 05:16] LABS: LYMPHOCYTES % (MANUAL) 7 % (16-48); MONOCYTES % (MANUAL) 8 % (0-11.0); NEUTROPHILS % (MANUAL) 85 (42-76)
--- NOTE | 2018-07-16 06:43 | NUR ---
VIRTUAL OFFICE ASSISTANT PT REMAINED ON LEVOPHED AT 26 MCG/MIN. PT WITH INTERMITTENT EPISODES OF DESATURATION DESPITE VENT SUPPORT. NO URINE OUTPUT. AWARE.
[2018-07-16] MEDS: BLOOD SUGAR DIAGNOSTIC 1 EACH STRIP IN SCH ×4 (08:14→18:00)
[2018-07-16] MEDS: INSULIN REGULAR, HUMAN 100 UNIT/ML 3 ML VIAL SQ PRN ×3 (08:17→17:09)
--- NOTE | 2018-07-16 08:20 | NUR ---
Pt seen & examined by Dr. Sultana, made him aware re: boardlike abdomen, no bowel sounds w/ orders to hold the GTF & do KUB.
--- NOTE | 2018-07-16 08:25 | NUR ---
Pt seen & examined by Dr. Fay.
[2018-07-16] MEDS: PANTOPRAZOLE 40 MG TABLET.DR PO SCH ×2 (09:00→17:06)
[2018-07-16] MEDS: HYDROCORTISONE SOD SUCCINATE 100 MG/2 ML VIAL IV SCH ×3 (11:10→18:04)
--- NOTE | 2018-07-16 11:40 | NUR ---
Pt seen & examined by Dr. Garcia w/ orders made & carried out. made aware that pt doesn't have UOP.
[2018-07-16] MEDS ORDERED: VANCOMYCIN 0.75 GM in IV D5W 250 ML IV SCH (13:00)
--- NOTE | 2018-07-16 13:20 | NUR ---
Pt seen & examined by Abbey RIBEIRO w/ orders made & carried out. DIETARY SERVER made aware re: boardlike abdomen & no bowel sounds. Per DIETARY SERVER, may place pt on NPO except meds. Once pt is stable, may do CT scan of the abdomen.
--- NOTE | 2018-07-16 13:34 | NUR ---
[facility] 31, called pharmacy Ronny, held scheduled [facility] at 1300H.
[2018-07-16] MEDS: LACTULOSE 10 G/15 ML UDC (PYXIS) PO SCH ×2 (13:41→17:06)
[2018-07-16] MEDS: FLUCONAZOLE IN NS 200 MG in PREMIX 1 EA IV SCH ×2 (14:59)
[2018-07-16 15:43] LABS: CALCIUM, SERUM 7.5 mg/dL (8.5-10.1); CREATININE 2.3 mg/dL (0.6-1.3); POTASSIUM 4.7 mmol/L (3.5-5.1)
[2018-07-16] MEDS ORDERED: DEXTROSE 50%-WATER 50 ML DISP.SYRIN IV PRN (17:30)
--- NOTE | 2018-07-16 18:43 | NUR ---
TEA BLENDER CLOSING NOTES: Pt sedated at Diprivan 20 mcg/kg/min. On MV via trach, sating at 97%. SR on telemonitor. J CARLOS PICC line kept patent & intact w/ no s/sx of infection/infiltration noted w/ Levophed x 22 mcg, kept MAP >65 (w/ A-line on L wrist). B soft wrist restraints kept on for pt's safety. FC draining to BSB (oliguric - Dr. Pasquale flynn), clamped for now for collection of urine sample. Wound care done. Pt turned & repositioned. Isolation precaution observed at all times. Bed in lowest & locked pos. Call light w/in reach. Will endorse to PM RN for MUKUL.
[2018-07-16 19:03] LABS: D-DIMER 13.6 mg/L(FEU (0.17-0.50)
--- NOTE | 2018-07-16 19:30 | NUR ---
ADJUNCT LECTURER RCD PT S/P ARREST. NST ON MONITOR. LOW SBP TITRATING LEVOPHED PER PROTOCOL. PT SEDATED ON PROPOFOL @ 20 MCG/KG/MIN; WELL BLSW RESTRAINTS TO PREVENT SELF EXTUBATION. INTUBATED 7@ 26 W/VENT SETTINGS AC 20 600 100%; PT WITH INTERMITTENT EPISODES OF DESATURATION. PT WITH COLD AND PURPLE FINGERS AND TOES. EF 15% PT NPO X MEDS. CT ABD PENDING ONCE PT HAS STABILIZED.
--- NOTE | 2018-07-16 22:00 | NUR ---
RETAIL STOCK CLERK NO WOUND CARE ORDERS AT THIS TIME PER MD OKAY TO USE XEROFORM UNTIL PT IS REEVALUATED. CONTINUE TO MONITOR.
[2018-07-17] VITALS (89 sets, daily range): BP systolic 83–115; BP diastolic 53–79
--- NOTE | 2018-07-17 00:26 | NUR ---
SPECIAL NEEDS LIBRARIAN BLOOD GLUCOSE 77 NO COVERAGE NEEDED. PT REMAINS NPO.
[2018-07-17] MEDS: ONDANSETRON HCL/PF 4 MG/2 ML VIAL IVP PRN (00:30)
[2018-07-17] MEDS: BLOOD SUGAR DIAGNOSTIC 1 EACH STRIP IN SCH ×5 (00:30→23:27)
[2018-07-17] MEDS: MEROPENEM 500 MG in IV NS 0.9% 50 ML IV SCH ×2 (00:32→12:05)
[2018-07-17 05:16] LABS: CREATININE, URINE 48.6 MG/DL (30.0-125.0); URINE TOTAL PROTEIN 110.3 mg/dL (0-11.9)
[2018-07-17 05:21] LABS: APPEARANCE,URINE CLEAR (CLEAR); BILIRUBIN,URINE 1+ (NEGATIVE); BLOOD, URINE 3+ Ery/uL (NEGATIVE); COLOR,URINE DARK YELLO (YELLOW); KETONES,URINE NEGATIVE (NEGATIVE); LEUKOCYTE ESTERASE ,URINE 1+ (NEGATIVE); NITRITE, URINE POSITIVE (NEGATIVE); PROTEIN,URINE 2+ mg/dl (NEGATIVE); UGLUCOSE NEGATIVE (NEGATIVE)
[2018-07-17 05:36] LABS: BACTERIA,URINE Few /HPF (None Seen); RBC,URINE 21-50 /HPF (0-2); SQUAMOUS EPITHELIAL CELL,UR Rare /HPF (None Seen); WBC,URINE 21-50 /HPF (0-3); YEAST,URINE Moderate /HPF (None Seen)
--- NOTE | 2018-07-17 05:46 | NUR ---
ASPNET DEVELOPER BLOOD GLUCOSE 91 NO COVERAGE NEEDED. PT REMAINS NPO.
[2018-07-17] MEDS: LACTULOSE 10 G/15 ML UDC (PYXIS) PO SCH ×5 (05:49→23:27)
[2018-07-17] MEDS: NOREPINEPHRINE 16 MG in IV D5W 500 ML IV PRN ×3 (05:50→18:56)
[2018-07-17 05:53] LABS: EOSINOPHIL,URINE None Seen
[2018-07-17 06:44] LABS: CALCIUM, SERUM 7.4 mg/dL (8.5-10.1); CREATININE 2.4 mg/dL (0.6-1.3); PHOSPHORUS 4.6 mg/dL (2.5-4.9); POTASSIUM 5.3 mmol/L (3.5-5.1)
[2018-07-17 07:07] LABS: BASOPHILS % (AUTO) 0.2 % (0.0-2.0); HEMATOCRIT 38 % (39-51); HEMOGLOBIN 12.1 g/dL (13.5-17.5); LYMPHOCYTES # (AUTO) 0.7 /CMM (0.8-4.8); LYMPHOCYTES % (AUTO) 3.9 % (20.0-44.0); MEAN CORPUSCULAR HGB CONC 32 g/dl (31.0-36.0); MEAN CORPUSCULAR VOLUME 86 fL (80-96); MONOCYTES # (AUTO) 0.8 /CMM (0.1-1.30); MONOCYTES % (AUTO) 4.5 % (2.0-12.0); NEUTROPHILS # (AUTO) 16.1 /CMM (1.8-8.9); NEUTROPHILS % (AUTO) 91.4 % (43.0-81.0); PLATELET COUNT (AUTO) 53 /CMM (150-450); RED BLOOD CELL COUNT(AUTO) 4.39 MIL/uL (4.5-6.0); WHITE BLOOD COUNT (AUTO) 17.6 K/uL (4.3-11.0)
--- NOTE | 2018-07-17 07:19 | NUR ---
MAINTENANCE ADVISOR MED NOT GIVEN D/T PT VOMITING YELLOW LIQUID AND THEN BROWN LIQUID.
--- NOTE | 2018-07-17 07:25 | NUR ---
WORLD RENOWNED CHEF AND RESTAURANT OWNER PT NOTED WITH URINE OUTPUT 235. SENT TO LAB FOR CULTURE ORDERED.
--- NOTE | 2018-07-17 07:31 | NUR ---
BUN PANNER PT NOTED WITH BLOOD TINGED SPUTUM.
[2018-07-17] MEDS ORDERED: VANCOMYCIN 0.75 GM in IV D5W 250 ML IV SCH (08:00)
[2018-07-17 08:29] LABS: BAND % (MANUAL) 8 % (0.0-5.0); LYMPHOCYTES % (MANUAL) 1 % (16-48); NEUTROPHILS % (MANUAL) 87 (42-76)
[2018-07-17 08:30] LABS: MONOCYTES % (MANUAL) 4 % (0-11.0)
[2018-07-17] MEDS: PROPOFOL 100 ML IV PRN ×2 (08:31→16:21)
[2018-07-17] MEDS: HYDROCORTISONE SOD SUCCINATE 100 MG/2 ML VIAL IV SCH ×3 (08:31→16:21)
[2018-07-17] MEDS: PANTOPRAZOLE 40 MG/PACK PACK GT SCH ×2 (08:31→16:22)
--- NOTE | 2018-07-17 08:31 | NUR ---
WOUND CARE CONSULT/FOLLOWUP: PT UNSTABLE AT THIS TIME TO BE TURNED FOR FULL SKIN ASSESSMENT. PER NURSING DOCUMENTATION THERE ARE PURPLE AREAS TO BACK AND SACRUM. RECOMMEND OFFLOADING AND PROTECT WITH MEPILEX. PT NOTED TO HAVE 4+ PITTING WEEPING EDEMA TO ARMS WITH BLANCHABLE DUSKY COLOR TO ELBOWS. ARMS ELEVATED AND ABSORBENT (EXTRASORB) PADS BEING CHANGED HOURLY PER NURSING STAFF. PT INTUBATED AT THIS TIME. ALL SKIN PROTECTION MEASURES IN PLACE. DISCUSSED WITH NURSING STAFF. DEFER TO DPM FOR LOWER EXTREMITIES. WILL SEE PT PT CONDITION PERMITS. MD IN AGREEMENT WITH PLAN OF CARE. PT ON ISOFLEX LOW AIRLOSS BED.
--- NOTE | 2018-07-17 08:45 | NUR ---
ICU/RN: Dr Sultana rounds; updated on pt status. ABG reviewed; current SPO2 on monitor on low 80's, unable to obtain accurate reading dt poor perfusion. Orders to titrate PEEP to 5. RT updated of vent change orders.
--- NOTE | 2018-07-17 09:15 | NUR ---
ICU/RN: Dr Damion chow, updated on pt status, labs reviewed. Pt not indicated for HD at this time. Addendum: 07/17/18 at 1036 by YU NAPIER RN Informed of UO last night
[2018-07-17] MEDS ORDERED: IV NS 0.9% 1,000 ML IV PRN (09:37)
--- NOTE | 2018-07-17 09:37 | NUR ---
US THORACENTESIS ON HOLD DUE TO PATIENT NOT STABLE. WILL F/U TOMORROW
[2018-07-17] MEDS ORDERED: NA PHOS,M-B/NA PHOS,DI-BA 1 EA ENEMA RC PRN (10:00)
--- NOTE | 2018-07-17 10:30 | NUR ---
ICU/RN: Abbey Cooper, HOGSHEAD INSPECTOR at bedside; updated on pt status. Labs and ABG reviewed. Per HOGSHEAD INSPECTOR, ok to hold of CT abd, administer lactulose and enema as ordered. Per HOGSHEAD INSPECTOR, start pt on dopamine first if necessary for BP maintenance.
[2018-07-17] MEDS: METOCLOPRAMIDE HCL 10 MG/2 ML VIAL IV SCH ×3 (11:08→22:23)
[2018-07-17 11:44] LABS: ABG BASE EXCESS -5.5 mmol/L; ABG OXYGEN SATURATION 84.1 % (92.0-98.5); ABG PCO2 28.1 mmHg (35.0-45.0); ABG PH 7.416 (7.350-7.450); ABG PO2 57.2 mmHg (75.0-100.0); AaDO2 627.7 mmHg; COHb 0.9 % (0.5-1.5); MetHb 0.7 % (0.0-1.5); O2Hb 82.8 % (94.0-97.0); SITE, ABG A-Line; VT, ABG 600 mL
[2018-07-17] MEDS: FLUCONAZOLE IN NS 200 MG in PREMIX 1 EA IV SCH ×2 (12:39)
--- NOTE | 2018-07-17 13:30 | NUR ---
ICU/RN: Pt orally suctioned with moderate amount of thick ricardo secretions. Noted with drop in SPO2, unable to tolerate suctioning.
--- NOTE | 2018-07-17 16:30 | NUR ---
ICU/RN: Hygienic care rendered, linens changed due to weeping anasarca. Pt unable to tolerate repositioning and care. Wound consult at bedside aware of pt hemodynamic instability for turning and repositioning.
[2018-07-17] MEDS: DOPamine 800 MG in IV D5W 250 ML IV PRN (16:39)
--- NOTE | 2018-07-17 17:30 | NUR ---
ICU/RN: Dr Sultana notified pt O2 sat in low 70's on current vent settings. Started on Dopamine drip to maintain SBP. Vent changes and ABG ordered, noted and RT notified.
--- NOTE | 2018-07-17 18:15 | NUR ---
ICU/RN: Abbey Cooper NP updated on pt status - increased PEEP, pending ABG, unable to tolerate any activity, on second pressor, no BM and blood glucose on downward trend. Per PURCHASE ANALYST, "I'll put in some orders."
--- NOTE | 2018-07-17 18:19 | NUR ---
RT END OF THE SHIFT REPORT, PT 62 Y OLD MALE REC. 0700 AM REMAINS MECHANICALLY VENTILATED PT. ORALLY INTUBATED ETT # 7.0 @ 26 CM LIP LINE CUFF INFLATED. SATELLITE TECHNICIAN DONE VENTILATOR SETTINGS NOTED. ALARMS SET AND FUNCTIONAL, VENT PLUGGED IN TO RED OUTLET. AMBU BAG AT BED SIDE. B/S BILATERALLY RHONCHI, SUX'D FOR MINIMAL OF WHITE/ YELLOW SECRETIONS, HME CHANGES, NO CHANGES, NO DISTRESS NOTED T/O DAY SHIFT. REPORT WILL PASS TO PM SHIFT
--- NOTE | 2018-07-17 18:23 | NUR ---
RT END OF THE SHIFT REPORT, PT 62 Y OLD MALE REC. 0700 AM ON VENT WITH NOTED SETTINGS, PT.ORALLY INTUBATED ETT # 7.0 @ 26 CM LIP LINE, TEST CASE DEVELOPER DONE AND HME CHANGED, PT. VENT PLUGGED TO RED OUT LET AND, VENT CHANGES DONE PER DR. STREETER ORDER. VENT ALARMS ARE SET AND FUNCTIONAL, B,S BILATERALLY RHONCHI. SUX'D FOR MINIMAL AMT. OF SECRETIONS, T/O DAY PT. SPO2 LOW AND PULMO KNOWS, VENT CHANGES DONE PER PELDAVID ORDER. AMBU BAG AT TH BEDSIDE, REPORT WILL PASS TO PM SHIFT Addendum: 07/17/18 at 1827 by ZENA BARRERA RT Amended: Links added.
[2018-07-17 19:34] LABS: D-DIMER 4.74 mg/L(FEU (0.17-0.50)
[2018-07-17] MEDS: Sodium Chloride 77 MEQ in IV 10% DEXTROSE 1,000 ML IV PRN (20:06)
[2018-07-17] MEDS: Z GUARD REMEDY 2 OZ OINT TP SCH (21:23)
[2018-07-17] MEDS: LINEZOLID RTU BAG 600 MG in PREMIX 1 EA IV SCH (21:23)
[2018-07-18] VITALS (102 sets, daily range): BP systolic 73–123; BP diastolic 48–82
[2018-07-18] MEDS: MEROPENEM 500 MG in IV NS 0.9% 50 ML IV SCH ×2 (00:18→12:28)
[2018-07-18] MEDS: PROPOFOL 100 ML IV PRN ×3 (02:46→21:27)
[2018-07-18 05:04] LABS: BASOPHILS % (AUTO) 0.3 % (0.0-2.0); HEMATOCRIT 36 % (39-51); HEMOGLOBIN 11.9 g/dL (13.5-17.5); LYMPHOCYTES # (AUTO) 0.4 /CMM (0.8-4.8); LYMPHOCYTES % (AUTO) 3.8 % (20.0-44.0); MEAN CORPUSCULAR HGB CONC 33 g/dl (31.0-36.0); MEAN CORPUSCULAR VOLUME 87 fL (80-96); MONOCYTES # (AUTO) 0.6 /CMM (0.1-1.30); MONOCYTES % (AUTO) 5.2 % (2.0-12.0); NEUTROPHILS # (AUTO) 10.6 /CMM (1.8-8.9); NEUTROPHILS % (AUTO) 90.7 % (43.0-81.0); PLATELET COUNT (AUTO) 56 /CMM (150-450); RED BLOOD CELL COUNT(AUTO) 4.19 MIL/uL (4.5-6.0); WHITE BLOOD COUNT (AUTO) 11.7 K/uL (4.3-11.0)
[2018-07-18 05:20] LABS: ALBUMIN 1.8 g/dL (3.4-5.0); BILIRUBIN,TOTAL 1.9 mg/dL (0.2-1.0); CALCIUM, SERUM 7.6 mg/dL (8.5-10.1); CREATININE 2.4 mg/dL (0.6-1.3); MAGNESIUM 1.8 mg/dL (1.8-2.4); PHOSPHORUS 4.8 mg/dL (2.5-4.9); POTASSIUM 4.8 mmol/L (3.5-5.1); TOTAL PROTEIN, SERUM 5.9 g/dL (6.4-8.2)
[2018-07-18] MEDS: BLOOD SUGAR DIAGNOSTIC 1 EACH STRIP IN SCH ×3 (05:32→17:05)
[2018-07-18] MEDS: METOCLOPRAMIDE HCL 10 MG/2 ML VIAL IV SCH ×3 (05:36→16:58)
[2018-07-18] MEDS: LACTULOSE 10 G/15 ML UDC (PYXIS) PO SCH ×3 (05:36→17:05)
[2018-07-18] MEDS: NOREPINEPHRINE 16 MG in IV D5W 500 ML IV PRN (06:08)
--- NOTE | 2018-07-18 06:11 | NUR ---
PT INTUBATED ON VENT. PT IN CRITICAL CONDITION. PT REMAINS ON HIGH FIO2 100% AND PEEP OF 10. O2 SAT 78-80%. RN AWARE. ETT SECURE, CUFF CABLE MAINTAINER. SX'D FOR SML AMT OF THICK PALE SECRETIONS. VENT PLUGGED INTO RED OUTLET. Addendum: 07/18/18 at 0613 by JASMYN MCDONALD RT Amended: Links added.
[2018-07-18 06:17] LABS: LYMPHOCYTES % (MANUAL) 4 % (16-48); MONOCYTES % (MANUAL) 4 % (0-11.0); NEUTROPHILS % (MANUAL) 92 (42-76)
--- NOTE | 2018-07-18 07:00 | NUR ---
RN NOTES RECEIVED PT ON BED , INTUBATED ,SEDATED, TOLERING CURRENT VENT SETTING WELL, ON TELE SR WITH FIRST DEGREE AVB WITH BBB, TEMPLETON DRAINING TO GRAVITY , OG TUBE CLAMPED , PT ON DIPRIVAN , LEVO AND DOPAMINE GTT , WILL TITRATE ACCORDINGLY, SR UP X3, CALL LIGHT WITHIN EASY REACH, BED LOCKED AND IN LOWEST POSITION, CONTINUE TO MONITOR.
--- NOTE | 2018-07-18 08:10 | NUR ---
RT PATIENT REC'D ORALLY INTUBATED ON [facility] VENT WITH ORDERED SETTINGS. PER DR STREETER PEEP INCREASED TO +13. VENT ALARMS CHECKED + AUDIBLE. CUFF PRESSURE CHECKED RN TRANSPLANT. PATIENT AIRWAY SUCTIONED WITH SMALL AMT OF PALE SEMI-THICK SECRETIONS. AMBU BAG AT [facility]. Addendum: 07/18/18 at 1046 by KENY NUNES RT Amended: Links added.
[2018-07-18] MEDS: PANTOPRAZOLE 40 MG/PACK PACK GT SCH ×2 (08:33→16:57)
[2018-07-18] MEDS: LINEZOLID RTU BAG 600 MG in PREMIX 1 EA IV SCH (08:33)
[2018-07-18] MEDS: HYDROCORTISONE SOD SUCCINATE 100 MG/2 ML VIAL IV SCH ×2 (08:34→12:32)
[2018-07-18] MEDS: Z GUARD REMEDY 2 OZ OINT TP SCH ×2 (08:34→21:50)
[2018-07-18 08:42] LABS: ABG BASE EXCESS -5.3 mmol/L; ABG OXYGEN SATURATION 88.9 % (92.0-98.5); ABG PCO2 34.7 mmHg (35.0-45.0); ABG PH 7.364 (7.350-7.450); ABG PO2 62.3 mmHg (75.0-100.0); COHb 0.7 % (0.5-1.5); MetHb 0.6 % (0.0-1.5); O2Hb 87.7 % (94.0-97.0); PEEP,BG 10 cm H2O; SITE, ABG A-Line
--- NOTE | 2018-07-18 08:50 | NUR ---
Social service consult requested by QUINTIN Cooper to locate next of kin since pt. is in critical condition. VANI reviewed previous social service notes and found contact for [facility], where pt. was receiving services. VANI contacted [facility] and spoke to Itzel who is pt's current business test analyst. She informed SW, that pt's had a few years ago. She informed SW she will contact another business test analyst at [facility] who knew pt. well and will call SW back.
[2018-07-18] MEDS ORDERED: VANCOMYCIN 0.75 GM in IV D5W 250 ML IV SCH (10:00)
--- NOTE | 2018-07-18 10:20 | NUR ---
RN NOTES UNABLE TO HAVE ULTRASOUND THORACENTESIS DONE AT THIS TIME , PT IS UNSTABLE PER DR STREETER.
--- NOTE | 2018-07-18 10:29 | NUR ---
SPOKE WITH RN, PATIENT UNSTABLE TO COME DOWN FOR CT ABDOMEN PELVIS
[2018-07-18] MEDS: INSULIN REGULAR, HUMAN 100 UNIT/ML 3 ML VIAL SQ PRN ×2 (11:23→17:16)
--- NOTE | 2018-07-18 11:29 | NUR ---
VANI received a call from clinician Bria De informing SW that they have been trying to locate the pt. since the police cleaned out his encampment on July 10, 2018. Bria was appreciative that VANI called them since they have been trying to locate him. Bria informed SW that they know pt. has a sister but pt. did not give them her information. Bria informed SW that pt's 4 years ago, which led to pt's depression and homelessness. Pt. is extremely isolated and has no social supports. Bria informed SW that they have a higher level of care and housing for him if and when he is able to be discharged. Bria informed SW she would like to stop by the hospital and see him and will try to come by this afternoon.
[2018-07-18] MEDS: FLUCONAZOLE IN NS 200 MG in PREMIX 1 EA IV SCH ×2 (13:19)
[2018-07-18] MEDS: Sodium Chloride 77 MEQ in IV 10% DEXTROSE 1,000 ML IV PRN (13:25)
--- NOTE | 2018-07-18 15:26 | NUR ---
RN NOTES [facility], NOTIFED REGARDING DR TIPTON ORDER ON RESPIRATORY CULTURE AND THE SENSITIVITY TO MER[facility] .
--- NOTE | 2018-07-18 17:00 | NUR ---
RN NOTES MAXIPIME IV IS NOTE AVAILABLE FROM PHARMACY YET , PHARMACY NOTIFED .
[2018-07-18] MEDS: CEFEPIME 2 GM in IV D5W 100 ML IV SCH (17:34)
--- NOTE | 2018-07-18 18:38 | NUR ---
RN NOTES PT STILL INTUBATED, ON LEVO AND DIPRIVAN GTT, VSS STABLE, NO SIGNIFICANT CHANGES NOTED ON THIS SHIFT , WILL ENDOSE TO WAI QUARLES FOR CONTINUITY OF CARE.
--- NOTE | 2018-07-18 19:50 | NUR ---
REFRACTORY WORKER. INITIAL ASSESSMENT. RECEIVED THE PT REST ON THE BED. ORALLY INTUBATED. SEDATED WITH DIPRIVAN. ETT #7, LIP 26,AC 20, TV 600, FIO2 80%, PEEP 13. SAT 98%. NO ACUTE DISTRESS NOTED. GROUND EQUIPMENT MECHANIC SHOWING NSR. IV RT UPPER ARM PICC LINE LEVOPHED 12MCG/MIN,DIPRIVAN 18MCG/KG/MIN IVF D10 IN NS 60 ML/H. FC PATENT. OGT INTACT. ALYSON LOWER EXTREMITY CELLULITIS, A LINE INTACT. ALYSON SOFT WRIST RESTRAINT CHECKED AND RELEASED. NO INJURY OR REDNESS NOTED. ALYSON HAND WEEPING WILL CONTINUE TO MONITOR VITALS
--- NOTE | 2018-07-18 22:06 | NUR ---
PT INTUBATED 7.0 ETT SECURED AT 25CM AT THE LIP VIA ANCHOR FAST. PT IS ON 80% FIO2, +13. O2 SAT 100%. PT TOLERATING VENT SETTINGS. SX'D FOR MOD AMT OF THICK PALE SECRETIONS. VENT ALARMS SET AND AUDIBLE. AMBU BAG AT BEDSIDE. WILL CONTINUE TO MONITOR. Addendum: 07/18/18 at 2208 by JASMYN MCDONALD RT Amended: Links added.
[2018-07-19] VITALS (97 sets, daily range): BP systolic 93–136; BP diastolic 48–88
[2018-07-19] MEDS: PROPOFOL 100 ML IV PRN ×3 (00:05→23:20)
[2018-07-19] MEDS: NOREPINEPHRINE 16 MG in IV D5W 500 ML IV PRN ×2 (00:48→18:59)
[2018-07-19] MEDS: METOCLOPRAMIDE HCL 10 MG/2 ML VIAL IV SCH ×5 (00:48→22:58)
[2018-07-19] MEDS: LACTULOSE 10 G/15 ML UDC (PYXIS) PO SCH ×5 (00:48→23:10)
[2018-07-19] MEDS: BLOOD SUGAR DIAGNOSTIC 1 EACH STRIP IN SCH ×5 (00:49→23:06)
[2018-07-19] MEDS: INSULIN REGULAR, HUMAN 100 UNIT/ML 3 ML VIAL SQ PRN ×5 (00:51→23:08)
[2018-07-19 04:54] LABS: BASOPHILS % (AUTO) 0.3 % (0.0-2.0); HEMATOCRIT 34 % (39-51); HEMOGLOBIN 11.1 g/dL (13.5-17.5); LYMPHOCYTES # (AUTO) 0.5 /CMM (0.8-4.8); LYMPHOCYTES % (AUTO) 3.6 % (20.0-44.0); MEAN CORPUSCULAR HGB CONC 33 g/dl (31.0-36.0); MEAN CORPUSCULAR VOLUME 87 fL (80-96); MONOCYTES # (AUTO) 0.6 /CMM (0.1-1.30); MONOCYTES % (AUTO) 4.7 % (2.0-12.0); NEUTROPHILS # (AUTO) 11.5 /CMM (1.8-8.9); NEUTROPHILS % (AUTO) 91.4 % (43.0-81.0); PLATELET COUNT (AUTO) 51 /CMM (150-450); RED BLOOD CELL COUNT(AUTO) 3.87 MIL/uL (4.5-6.0); WHITE BLOOD COUNT (AUTO) 12.6 K/uL (4.3-11.0)
[2018-07-19 05:24] LABS: CALCIUM, SERUM 7.5 mg/dL (8.5-10.1); POTASSIUM 3.9 mmol/L (3.5-5.1)
[2018-07-19 06:14] LABS: LYMPHOCYTES % (MANUAL) 4 % (16-48); MONOCYTES % (MANUAL) 2 % (0-11.0); NEUTROPHILS % (MANUAL) 94 (42-76)
--- NOTE | 2018-07-19 06:38 | NUR ---
VP CARDIOVASCULAR SERVICE LINE. AM CARE. ORAL CARE, BED BATH GIVEN. LINEN CHANGED. REMAINING SAME VENT SETTING TOLERATED WELL. SAT 98%. NO ACUTE DISTRESS NOTED. CURRICULUM ASSISTANT SHOWING NSR. IV RT UPPER ARM PICC LINE LEVOPHED 12MCG/MG,DIPRIVAN 6MCG/KG/MIN,IVF 60ML/H. FC PATENT, URINE DRAINING. HOB ELEVATED. ALYSON SOFT WRIST RESTRAINT CHECKED AND RELEASED. NO INJURY OR REDNESS NOTED./ WILL CONTINUE TO MONITOR VITALS.
--- NOTE | 2018-07-19 07:50 | NUR ---
RT PATIENT REC'D ORALLY INTUBATED ON [facility] VENT WITH ORDERED SETTINGS. VENT ALARMS CHECKED + AUDIBLE. AIRWAY SUCTIONED WITH SMALL AMT OF PALE SEMI-THICK SECRETIONS. AMBU BAG AT HOB. Addendum: 07/19/18 at 1803 by KENY NUNES RT Amended: Links added.
[2018-07-19] MEDS: Sodium Chloride 77 MEQ in IV 10% DEXTROSE 1,000 ML IV PRN ×2 (07:53→23:21)
[2018-07-19] MEDS: PANTOPRAZOLE 40 MG/PACK PACK GT SCH ×2 (08:58→17:38)
[2018-07-19] MEDS: HYDROCORTISONE SOD SUCCINATE 100 MG/2 ML VIAL IV SCH (08:59)
[2018-07-19] MEDS: Z GUARD REMEDY 2 OZ OINT TP SCH ×2 (11:02→20:12)
[2018-07-19 11:39] LABS: ABG BASE EXCESS -2.6 mmol/L; ABG OXYGEN SATURATION 97.5 % (92.0-98.5); ABG PCO2 29.7 mmHg (35.0-45.0); ABG PH 7.454 (7.350-7.450); ABG PO2 104.8 mmHg (75.0-100.0); AaDO2 290.3 mmHg; COHb 0.7 % (0.5-1.5); MetHb 0.6 % (0.0-1.5); O2Hb 96.2 % (94.0-97.0); PEEP,BG 13 cm H2O; SITE, ABG A-Line
[2018-07-19] MEDS: CEFEPIME 2 GM in IV D5W 100 ML IV SCH (16:26)
--- NOTE | 2018-07-19 19:21 | NUR ---
RN NOTES 0730-RECEIVED PATIENT FROM RN. PATIENT ON AC MODE, DIPRIVSN DRIP, LEVOPHED DRIP FOR BP SUPPORT. 1000-TITRATED LEVOPHED DRIP, SBP WITHIN ACCEPTABLE RANGE. PATIENT ON DIPRIVAN DRIP WELL. 1300-ACCCUEHCKS DONE, INSULIN COVERAGE ADMINISTERED ORDERED 1600-fI02 TO 40%, PEEP-10. PATIENT OTLERATING WELL. LEVOPHED TITRATED TO 8 MCG/MIN FOR SUPPORT. 1800-AFEBRILE. BP WITHIN RANGE. 1900-REPORT GIVEN TO RN.
[2018-07-20] VITALS (106 sets, daily range): BP systolic 69–139; BP diastolic 41–88
[2018-07-20] MEDS: METOCLOPRAMIDE HCL 10 MG/2 ML VIAL IV SCH ×4 (04:54→22:19)
--- NOTE | 2018-07-20 05:36 | NUR ---
END SHIFT NO DISTRESS THE WHOLE SHIFT. PT IS STILL ON HIGH PEEP (+10), FIO2 40%. O2 SAT 100%. ANCHOR FAST CHANGED, NOTICED REDNESS ON THE LEFT SIDE OF HIS CHEEK BONE. NOTIFIED RN. WILL ENDORSE TO AM RT. Addendum: 07/20/18 at 0539 by JASMYN MCDONALD RT Amended: Links added.
[2018-07-20] MEDS: BLOOD SUGAR DIAGNOSTIC 1 EACH STRIP IN SCH ×3 (06:28→17:51)
[2018-07-20] MEDS: LACTULOSE 10 G/15 ML UDC (PYXIS) PO SCH ×3 (06:30→17:26)
[2018-07-20] MEDS: INSULIN REGULAR, HUMAN 100 UNIT/ML 3 ML VIAL SQ PRN ×3 (06:31→17:53)
[2018-07-20 08:12] LABS: ABG OXYGEN SATURATION 97.9 % (92.0-98.5); ABG PCO2 27.8 mmHg (35.0-45.0); ABG PH 7.484 (7.350-7.450); ABG PO2 118.9 mmHg (75.0-100.0); AaDO2 134.3 mmHg; COHb 0.5 % (0.5-1.5); MetHb 0.7 % (0.0-1.5); O2Hb 96.7 % (94.0-97.0); SITE, ABG A-Line; VENT MODE, BG AC 20 600 +10 40%
--- NOTE | 2018-07-20 08:17 | NUR ---
INITIAL ANSWERING SERVICE AGENT NOTE RCVD PT SEDATED ON DIPRIVAN, INTUBATED SHOWING NO SIGNS OF DISTRESS BILATERAL SOFT WRIST RESTRAINTS IN PLACE CIRCULATION CHECKS DONE, PULSES PRESENT. TOLERATING ORDERED VENT SETTINGS, OG-TUBE CLAMPED PLACEMENT VERIFIED BY AUSCULTATION/ASPIRATION OF GASTRIC CONTENTS, TEMPLETON TO GRAVITY DRAINING CLOUDY, YELLOW URINE WITH SEDIMENT. LEFT RADIAL ARTERIAL LINE AND RIGHT UPPER ARM PICC. WILL CONTINUE TO MONITOR PT FOR SAFETY AND COMFORT. BED IN LOW AND LOCKED POSITION, HEAD OF BED ELEVATED.
[2018-07-20 08:21] LABS: MEAN CORPUSCULAR HGB CONC 33 g/dl (31.0-36.0)
[2018-07-20] MEDS: PANTOPRAZOLE 40 MG/PACK PACK GT SCH ×2 (08:33→17:26)
[2018-07-20] MEDS: PROPOFOL 100 ML IV PRN ×2 (08:34→22:23)
[2018-07-20] MEDS: Z GUARD REMEDY 2 OZ OINT TP SCH ×2 (08:34→22:35)
[2018-07-20] MEDS: HYDROCORTISONE SOD SUCCINATE 100 MG/2 ML VIAL IV SCH (08:34)
[2018-07-20 09:17] LABS: WHITE BLOOD COUNT (AUTO) 11.2 K/uL (4.3-11.0)
[2018-07-20 09:18] LABS: HEMATOCRIT 34 % (39-51); HEMOGLOBIN 10.9 g/dL (13.5-17.5)
[2018-07-20 09:19] LABS: BASOPHILS % (AUTO) 0.2 % (0.0-2.0); EOSINOPHILS % (AUTO) 0.1 % (0.0-6.0); LYMPHOCYTES # (AUTO) 0.5 /CMM (0.8-4.8); LYMPHOCYTES % (AUTO) 4.6 % (20.0-44.0); MEAN CORPUSCULAR VOLUME 86 fL (80-96); MONOCYTES % (AUTO) 4.4 % (2.0-12.0); NEUTROPHILS # (AUTO) 10.2 /CMM (1.8-8.9); NEUTROPHILS % (AUTO) 90.7 % (43.0-81.0)
[2018-07-20 09:20] LABS: MONOCYTES # (AUTO) 0.5 /CMM (0.1-1.30)
[2018-07-20 09:22] LABS: PLATELET COUNT (AUTO) 13 /CMM (150-450)
[2018-07-20 09:33] LABS: BAND % (MANUAL) 1 % (0.0-5.0); LYMPHOCYTES % (MANUAL) 1 % (16-48); MONOCYTES % (MANUAL) 7 % (0-11.0); NEUTROPHILS % (MANUAL) 91 (42-76)
[2018-07-20 10:11] LABS: BILIRUBIN,TOTAL 1.1 mg/dL (0.2-1.0); CALCIUM, SERUM 7.7 mg/dL (8.5-10.1); CREATININE 1.6 mg/dL (0.6-1.3); MAGNESIUM 1.6 mg/dL (1.8-2.4); PHOSPHORUS 2.6 mg/dL (2.5-4.9); POTASSIUM 3.3 mmol/L (3.5-5.1); TOTAL PROTEIN, SERUM 4.7 g/dL (6.4-8.2)
[2018-07-20 10:15] LABS: ALBUMIN 1.4 g/dL (3.4-5.0)
--- NOTE | 2018-07-20 11:10 | NUR ---
SNAKER TRACTOR DRIVER NOTE DR. EDWARDS IN UNIT INFORMED OF PT'S HYPOTHERMIA, ALBUMIN TRENDING DOWN TO 1.4, PLATELETS 13. HE RECOMMENDED ONE UNIT OF PLATELETS. PT HAS NO FAMILY TO CONSENT FOR HIM. DR EDWARDS AND DR. STREETER SIGNED CONSENT FOR BLOOD PRODUCT TRANSFUSION.
[2018-07-20] MEDS: GLUCERNA 1.2 1,000 ML BOTTLE NG PRN (11:52)
[2018-07-20] MEDS: CEFEPIME 2 GM in IV D5W 100 ML IV SCH (16:13)
[2018-07-20] MEDS: Sodium Chloride 77 MEQ in IV 10% DEXTROSE 1,000 ML IV PRN (16:13)
[2018-07-20] MEDS: NOREPINEPHRINE 16 MG in IV D5W 500 ML IV PRN (17:26)
[2018-07-20] MEDS ORDERED: PHYTONADIONE INJ 10 MG/1 ML AMPUL SQ ONE (18:00)
--- NOTE | 2018-07-20 19:25 | NUR ---
HONEY PROCESSOR NOTE PT REMAINS INTUBATED, LIGHTLY SEDATED ON DIPRIVAN, SR WITH 1ST DEGREE AV BLOCK, BILATERAL SOFT WRIST RESTRAINTS IN PLACE. CIRCULATION CHECKS DONE AND PULSES PRESENT, TOLERATING ORDERED VENT SETTINGS. OG-TUBE PLACEMENT VERIFIED BY AUSCULTATION/ASPIRATION OF GASTRIC CONTENTS, TUBE FEEDING STARTED, NO RESIDUAL OBTAINED. TEMPLETON TO GRAVITY DRAINING CLOUDY, YELLOW URINE. WOUND CARE DONE ORDERED. RIGHT UPPER ARM PICC C/D/I/PATENT, LEFT RADIAL A-LINE C/D/I/PATENT. LEVO AND IVF INFUSING ORDERED. PT'S CARE ENDORSED TO HERBARIUM WORKER RN FOR CONTINUITY OF CARE. BED IN LOW AND LOCKED POSITION, HEAD OF BED ELEVATED. PHARMACY CALLED TO REPLACE LOW K AND MG. REPLACEMENTS ORDERED AND ENDORSED TO ILIANA MIMS
[2018-07-20] MEDS ORDERED: POTASSIUM CHLORIDE 20 MEQ POWDER PACKET NG SCH (19:30)
--- NOTE | 2018-07-20 20:26 | NUR ---
RECEIVED PT INTUBATED ON VENT. TOLERATING VENT SETTINGS. SX'D FOR MOD AMT OF THICK PALE SECRETIONS. VENT ALRMS SET AND AUDIBLE. ETT SECURED AT 24CM AT THE LIP VIA ANCHOR FAST. WILL CONTINUE TO MONITOR. Addendum: 07/20/18 at 2027 by JASMYN MCDONALD RT Amended: Links added.
[2018-07-20 20:40] LABS: D-DIMER 9.28 mg/L(FEU (0.17-0.50)
--- NOTE | 2018-07-20 20:52 | NUR ---
INITIAL VARITYPIST NOTE RCVD PT SEDATED ON DIPRIVAN, INTUBATED SHOWING NO SIGNS OF DISTRESS BILATERAL SOFT WRIST RESTRAINTS IN PLACE CIRCULATION CHECKS DONE, PULSES PRESENT. TOLERATING ORDERED VENT SETTINGS, OG-TUBE CLAMPED PLACEMENT VERIFIED BY AUSCULTATION/ASPIRATION OF GASTRIC CONTENTS, TEMPLETON TO GRAVITY DRAINING CLOUDY, YELLOW URINE WITH SEDIMENT. LEFT RADIAL ARTERIAL LINE AND RIGHT UPPER ARM PICC. CL PLT REPORTED 28, LAB CALLED, PLTS READY FOR TEACHER ASSISTANT, WILL CONTINUE TO MONITOR PT FOR BLEEDING, SAFETY AND COMFORT. BED IN LOW AND LOCKED POSITION, HEAD OF BED ELEVATED.
[2018-07-20] MEDS: Magnesium 1GM/D5W 100ML PREMIX 100 ML IV SCH ×2 (22:19→23:34)
[2018-07-20] MEDS ORDERED: POTASSIUM CHLORIDE 20 MEQ POWDER PACKET ONE (22:22)
[2018-07-20] MEDS ORDERED: Magnesium 1GM/D5W 100ML PREMIX 100 ML IV ONE (23:33)
--- NOTE | 2018-07-20 23:49 | NUR ---
STOCK MEDS PULLED BY LEON LAYTON, RUNNING LATE, PT MULTIPLE DRUGS RUNNING.
[2018-07-21] VITALS (54 sets, daily range): BP systolic 82–161; BP diastolic 43–108
[2018-07-21] MEDS: BLOOD SUGAR DIAGNOSTIC 1 EACH STRIP IN SCH ×4 (00:14→18:16)
[2018-07-21] MEDS: LACTULOSE 10 G/15 ML UDC (PYXIS) PO SCH ×4 (00:14→18:44)
[2018-07-21] MEDS: INSULIN REGULAR, HUMAN 100 UNIT/ML 3 ML VIAL SQ PRN ×4 (00:30→18:20)
[2018-07-21 04:35] LABS: BASOPHILS % (AUTO) 0.4 % (0.0-2.0); HEMATOCRIT 32 % (39-51); HEMOGLOBIN 10.6 g/dL (13.5-17.5); LYMPHOCYTES # (AUTO) 0.4 /CMM (0.8-4.8); LYMPHOCYTES % (AUTO) 3.4 % (20.0-44.0); MEAN CORPUSCULAR HGB CONC 33 g/dl (31.0-36.0); MEAN CORPUSCULAR VOLUME 87 fL (80-96); MONOCYTES # (AUTO) 0.7 /CMM (0.1-1.30); NEUTROPHILS # (AUTO) 10.9 /CMM (1.8-8.9); NEUTROPHILS % (AUTO) 90.2 % (43.0-81.0); PLATELET COUNT (AUTO) 68 /CMM (150-450); RED BLOOD CELL COUNT(AUTO) 3.69 MIL/uL (4.5-6.0); WHITE BLOOD COUNT (AUTO) 12.1 K/uL (4.3-11.0)
[2018-07-21 04:48] LABS: CALCIUM, SERUM 7.6 mg/dL (8.5-10.1); CREATININE 1.4 mg/dL (0.6-1.3); MAGNESIUM 1.8 mg/dL (1.8-2.4); PHOSPHORUS 2.8 mg/dL (2.5-4.9)
[2018-07-21 05:12] LABS: THYROID STIMULATING HORMONE 7.026 uIU/mL (0.358-3.74)
[2018-07-21 05:16] LABS: LYMPHOCYTES % (MANUAL) 2 % (16-48); NEUTROPHILS % (MANUAL) 93 (42-76)
[2018-07-21 05:17] LABS: MONOCYTES % (MANUAL) 5 % (0-11.0)
[2018-07-21 05:20] LABS: POTASSIUM 2.8 mmol/L (3.5-5.1)
[2018-07-21] MEDS: METOCLOPRAMIDE HCL 10 MG/2 ML VIAL IV SCH ×4 (05:52→23:32)
--- NOTE | 2018-07-21 06:27 | NUR ---
ICU CLOSING NOTE ENDORSED GA TO AM RN FOR MUKUL, S/P 1 UNIT OF PLT 435 ML, MAG 2 BAGS, K-20MEQ, CL IN AM, L.A 2.5 AND K-2.8, CL RELAYED TO Loida FARAH NP, AWAITING ORDERS. WILL ENDORSE FOR F/U.
[2018-07-21] MEDS ORDERED: POTASSIUM CL. PREMIX PERIPHER. 50 ML IV SCH (07:00)
--- NOTE | 2018-07-21 07:31 | NUR ---
INITIAL PT SEDATED ON DIPRIVAN, INTUBATED SHOWING NO SIGNS OF DISTRESS BILATERAL SOFT WRIST RESTRAINTS IN PLACE CIRCULATION CHECKS DONE, PULSES PRESENT. TOLERATING ORDERED VENT SETTINGS, OG-TUBE CLAMPED PLACEMENT VERIFIED BY AUSCULTATION/ASPIRATION OF GASTRIC CONTENTS, TEMPLETON TO GRAVITY DRAINING CLOUDY, YELLOW URINE WITH SEDIMENT. LEFT RADIAL ARTERIAL LINE AND RIGHT UPPER ARM PICC. WILL CONTINUE TO MONITOR PT FOR BLEEDING, SAFETY AND COMFORT. BED IN LOW AND LOCKED POSITION, HEAD OF BED ELEVATED.
[2018-07-21 08:08] LABS: BILIRUBIN,DIRECT 0.8 mg/dL (0.0-0.2)
[2018-07-21] MEDS: PANTOPRAZOLE 40 MG/PACK PACK GT SCH ×2 (08:19→16:58)
[2018-07-21] MEDS: HYDROCORTISONE SOD SUCCINATE 100 MG/2 ML VIAL IV SCH (08:19)
[2018-07-21] MEDS: POTASSIUM CHLORIDE 20 MEQ POWDER PACKET NG SCH ×4 (08:19→11:25)
[2018-07-21 08:30] LABS: ABG BASE EXCESS -1.1 mmol/L; ABG PCO2 33.7 mmHg (35.0-45.0); ABG PH 7.443 (7.350-7.450); AaDO2 142.4 mmHg; COHb 0.4 % (0.5-1.5); MetHb 0.7 % (0.0-1.5); O2Hb 95.9 % (94.0-97.0); SITE, ABG A-Line; VENT MODE, BG AC 16 550 40% +8
[2018-07-21] MEDS: LEVOTHYROXINE INJ 100 MCG VIAL IV SCH (08:36)
[2018-07-21] MEDS: Z GUARD REMEDY 2 OZ OINT TP SCH ×2 (08:40→21:00)
[2018-07-21] MEDS: Potassium Chloride 10 MEQ in IV NS 0.9% 1,000 ML IV PRN (08:43)
--- NOTE | 2018-07-21 09:58 | NUR ---
TEXTED DADARIAN WITH LACTIS ACID 2.6 MD PRESENT IN UNIT ORDERED CVP READING OFF PRUA PICC OPENING PRESSURE 12 MMHG NO FLUID ORDERS GIVEN JUST MANTAIN PRESENT FLUIDS.
[2018-07-21] MEDS ORDERED: CEFEPIME 2 GM in IV D5W 100 ML IV SCH (12:00)
--- NOTE | 2018-07-21 14:07 | NUR ---
RT NOTE PT REMAINS MECHANICALLY VENTILATED VIA 7.0 ETT 24 CM AT LIP. CUFF INFLATED. ETT SECURE. VENTILATOR SETTINGS PRESCRIBED. ALARMS SET PER PROTOCOL AND AUDIBLE. VENT PLUGGED IN TO RED OUTLET. AMBU BAG AT BED SIDE. NO DISTRESS NOTED AT MOMENT. Addendum: 07/21/18 at 1409 by LESLEY MARSHALL RT Amended: Links added.
[2018-07-21] MEDS: PROPOFOL 100 ML IV PRN (15:57)
[2018-07-21] MEDS ORDERED: FEE PK DOSING 1 MIN EA MC ONE (17:16)
--- NOTE | 2018-07-21 17:24 | NUR ---
Sea LANG ORDERED HAHN CULTURES SPUTUM, URINE, AND BLOOD CULTURES SENT TO LAB
[2018-07-21 18:19] LABS: APPEARANCE,URINE CLEAR (CLEAR); BILIRUBIN,URINE NEGATIVE (NEGATIVE); BLOOD, URINE 1+ Ery/uL (NEGATIVE); COLOR,URINE YELLOW (YELLOW); KETONES,URINE NEGATIVE (NEGATIVE); LEUKOCYTE ESTERASE ,URINE NEGATIVE (NEGATIVE); NITRITE, URINE NEGATIVE (NEGATIVE); PH,URINE 6.5 (5.0-8.0); PROTEIN,URINE 1+ mg/dl (NEGATIVE); UGLUCOSE TRACE mg/dL (NEGATIVE); UROBILINOGEN,URINE 0.2 EU/dL (0.2)
[2018-07-21 18:31] LABS: WBC,URINE 0-2 /HPF (0-3)
[2018-07-21 18:32] LABS: BACTERIA,URINE Few /HPF (None Seen); SQUAMOUS EPITHELIAL CELL,UR Rare /HPF (None Seen); YEAST,URINE Many /HPF (None Seen)
[2018-07-21] MEDS: VANCOMYCIN 0.75 GM in IV D5W 250 ML IV SCH (18:43)
[2018-07-21] MEDS: GLUCERNA 1.2 1,000 ML BOTTLE NG PRN (18:43)
--- NOTE | 2018-07-21 19:16 | NUR ---
RT PT ORALLY INTUBATED ON [facility] VENT ON CHARTED SETTINGS. NO SIGNS OF RESP DISTRESS NOTED AT THIS TIME. AIRWAY PATENT AND SECURED. CHUTE GREASER DONE. PT SUCTIONED. ALARMS SET AND AUDIBLE. AMBUBAG AT BEDSIDE. VENT CONNECTED TO RED OUTLET. WILL CONT TO MONITOR. Addendum: 07/21/18 at 2024 by JULITA TOSCANO RT Amended: Links added.
--- NOTE | 2018-07-21 20:00 | NUR ---
RN INITIAL NOTES RECEIVED PT SEDATED ON DIPRIVAN, INTUBATED SHOWING NO SIGNS OF DISTRESS BILATERAL SOFT WRIST RESTRAINTS IN PLACE CIRCULATION CHECKS DONE, PULSES PRESENT. TOLERATING ORDERED VENT SETTINGS, OG-TUBE PLACEMENT VERIFIED BY AUSCULTATION/ASPIRATION OF GASTRIC CONTENTS WITH GTF OF GLUCERNA @40ML/HR, TEMPLETON TO GRAVITY DRAINING CLOUDY, YELLOW URINE WITH SEDIMENT. LEFT RADIAL ARTERIAL LINE AND RIGHT UPPER ARM PICC LINE ARE IN PLACE WITH LEVOPHED @6MCG/H AND POTASSIUM CHLORIDE @60ML/HR. WILL CONTINUE TO MONITOR PT FOR BLEEDING, SAFETY AND COMFORT. BED IN LOW AND LOCKED POSITION, HEAD OF BED ELEVATED.CALL LIGHT IN REACH.
[2018-07-21] MEDS: MEROPENEM 1 G in IV NS 0.9% 100 ML IV SCH (21:58)
[2018-07-22] VITALS (55 sets, daily range): BP systolic 81–117; BP diastolic 34–85
--- NOTE | 2018-07-22 | NUR ---
RN NOTES PATIENT'S RECTAL TEMP IS 94.5. PATIENT HAS BEEN COVERED WITH LAURA NEVAREZ. WILL CONTINUE TO MONITOR PATIENT CLOSELY. Addendum: 07/22/18 at 0148 by CHERELLE LEMUS RN CORRECTION: TEMP IS 96.1.
[2018-07-22] MEDS: BLOOD SUGAR DIAGNOSTIC 1 EACH STRIP IN SCH ×5 (01:00→23:59)
[2018-07-22] MEDS: LACTULOSE 10 G/15 ML UDC (PYXIS) PO SCH ×5 (01:00→23:59)
[2018-07-22] MEDS: INSULIN REGULAR, HUMAN 100 UNIT/ML 3 ML VIAL SQ PRN ×4 (01:07→18:58)
[2018-07-22] MEDS: Potassium Chloride 10 MEQ in IV NS 0.9% 1,000 ML IV PRN ×2 (03:03→21:13)
[2018-07-22] MEDS: PROPOFOL 100 ML IV PRN ×2 (03:07→15:59)
[2018-07-22 05:04] LABS: BASOPHILS % (AUTO) 0.1 % (0.0-2.0); EOSINOPHILS % (AUTO) 0.1 % (0.0-6.0); HEMATOCRIT 31 % (39-51); HEMOGLOBIN 10.1 g/dL (13.5-17.5); LYMPHOCYTES # (AUTO) 0.5 /CMM (0.8-4.8); LYMPHOCYTES % (AUTO) 4.5 % (20.0-44.0); MEAN CORPUSCULAR HGB CONC 33 g/dl (31.0-36.0); MEAN CORPUSCULAR VOLUME 86 fL (80-96); MONOCYTES # (AUTO) 0.7 /CMM (0.1-1.30); MONOCYTES % (AUTO) 6.1 % (2.0-12.0); NEUTROPHILS # (AUTO) 10.2 /CMM (1.8-8.9); NEUTROPHILS % (AUTO) 89.2 % (43.0-81.0); PLATELET COUNT (AUTO) 64 /CMM (150-450); RED BLOOD CELL COUNT(AUTO) 3.58 MIL/uL (4.5-6.0); WHITE BLOOD COUNT (AUTO) 11.5 K/uL (4.3-11.0)
[2018-07-22 05:13] LABS: ALANINE AMINOTRANSFERASE 27 U/L (12-78); ALBUMIN 1.6 g/dL (3.4-5.0); ALKALINE PHOSPHATASE 219 U/L (46-116); ASPARTATE AMINOTRANSFERASE 49 U/L (15-37); BILIRUBIN,TOTAL 1.2 mg/dL (0.2-1.0); CALCIUM, SERUM 7.8 mg/dL (8.5-10.1); CARBON DIOXIDE 24 mmol/L (21-32); CHLORIDE 103 mmol/L (98-107); CREATININE 1.3 mg/dL (0.6-1.3); GLUCOSE 155 mg/dL (74-106); MAGNESIUM 1.6 mg/dL (1.8-2.4); POTASSIUM 3.6 mmol/L (3.5-5.1); SODIUM SERUM 135 mmol/L (136-145); TOTAL PROTEIN, SERUM 5.1 g/dL (6.4-8.2); UREA NITROGEN, BLOOD 40 mg/dL (7-18)
[2018-07-22] MEDS: MEROPENEM 1 G in IV NS 0.9% 100 ML IV SCH ×3 (05:52→21:21)
[2018-07-22] MEDS: METOCLOPRAMIDE HCL 10 MG/2 ML VIAL IV SCH ×4 (05:53→23:59)
[2018-07-22] MEDS: VANCOMYCIN 0.75 GM in IV D5W 250 ML IV SCH ×2 (06:00→18:43)
[2018-07-22 06:04] LABS: LYMPHOCYTES % (MANUAL) 4 % (16-48); MONOCYTES % (MANUAL) 5 % (0-11.0); NEUTROPHILS % (MANUAL) 91 (42-76)
--- NOTE | 2018-07-22 07:25 | NUR ---
INITIAL RECEIVED PT SEDATED ON DIPRIVAN (15MCG), INTUBATED SHOWING NO SIGNS OF DISTRESS BILATERAL SOFT WRIST RESTRAINTS IN PLACE CIRCULATION CHECKS DONE, PULSES PRESENT. TOLERATING ORDERED VENT SETTINGS, OG-TUBE PLACEMENT VERIFIED BY AUSCULTATION/ASPIRATION OF GASTRIC CONTENTS WITH GTF OF GLUCERNA @40ML/HR, TEMPLETON TO GRAVITY DRAINING CLOUDY, YELLOW URINE WITH SEDIMENT. LEFT RADIAL ARTERIAL LINE AND RIGHT UPPER ARM PICC LINE ARE IN PLACE WITH LEVOPHED @6MCG/H AND POTASSIUM CHLORIDE @60ML/HR. WILL CONTINUE TO MONITOR PT FOR BLEEDING, SAFETY AND COMFORT. BED IN LOW AND LOCKED POSITION, HEAD OF BED ELEVATED.CALL LIGHT IN REACH.WILL CONTINUE TO MONITOR
[2018-07-22] MEDS: LEVOTHYROXINE INJ 100 MCG VIAL IV SCH (07:34)
[2018-07-22 08:21] LABS: ABG OXYGEN SATURATION 96.7 % (92.0-98.5); ABG PCO2 38.4 mmHg (35.0-45.0); ABG PH 7.435 (7.350-7.450); ABG PO2 98.3 mmHg (75.0-100.0); AaDO2 142.7 mmHg; COHb 0.5 % (0.5-1.5); MetHb 0.8 % (0.0-1.5); O2Hb 95.4 % (94.0-97.0); SITE, ABG A-Line
[2018-07-22] MEDS: PANTOPRAZOLE 40 MG/PACK PACK GT SCH ×2 (08:36→16:58)
[2018-07-22] MEDS: Z GUARD REMEDY 2 OZ OINT TP SCH ×2 (08:36→21:21)
[2018-07-22] MEDS: HYDROCORTISONE SOD SUCCINATE 100 MG/2 ML VIAL IV SCH (08:36)
[2018-07-22] MEDS: Magnesium 1GM/D5W 100ML PREMIX 100 ML IV SCH ×2 (08:42→09:34)
[2018-07-22] MEDS ORDERED: POTASSIUM PHOSPHATE MM 15 MMOL in IV D5W 250 ML IV SCH (09:00)
[2018-07-22] MEDS: POTASSIUM PHOSPHATE MM 7.5 MMOL in IV D5W 100 ML IV SCH ×2 (09:34→12:47)
[2018-07-22] MEDS ORDERED: DOPamine 800 MG in IV D5W 250 ML IV PRN (11:00)
[2018-07-22] MEDS: GLUCERNA 1.2 1,000 ML BOTTLE NG PRN (16:56)
--- NOTE | 2018-07-22 18:30 | NUR ---
CLOSING Pt sedated at Diprivan 15 mcg/kg/min. On MV via trach, sating at 97%. SR on telemonitor. J CARLOS PICC line kept patent & intact w/ no s/sx of infection/infiltration noted w/ Levophed x 4 mcg, kept MAP >65 (w/ A-line on L wrist). B soft wrist restraints kept on for pt's safety. FC draining to GRAVITY. Wound care done. Pt turned & repositioned. Isolation precaution observed at all times. Bed in lowest & locked pos. Call light w/in reach. Will endorse to PM RN for CONTINUITY OF CARE
[2018-07-23] VITALS (59 sets, daily range): BP systolic 93–127; BP diastolic 47–84
[2018-07-23] MEDS: INSULIN REGULAR, HUMAN 100 UNIT/ML 3 ML VIAL SQ PRN ×2 (00:04→05:33)
[2018-07-23] MEDS: PROPOFOL 100 ML IV PRN ×3 (00:07→21:06)
--- NOTE | 2018-07-23 04:37 | NUR ---
pt rec'd orally intubated via ETT sz #7.0 secured at 24 cm at the lip line. pt on [facility] vent settings as charted per md order. no resp distress or sob noted. sx'd for mod amt of pale yellow secretions. alarms are set and audible. vent plugged into red outlet. ambu bag bedside. will continue to monitor. Addendum: 07/23/18 at 0439 by JORGE CANELA RT Amended: Links added.
[2018-07-23 05:09] LABS: CALCIUM, SERUM 7.7 mg/dL (8.5-10.1); CREATININE 1.1 mg/dL (0.6-1.3); POTASSIUM 3.7 mmol/L (3.5-5.1)
[2018-07-23] MEDS: METOCLOPRAMIDE HCL 10 MG/2 ML VIAL IV SCH ×3 (05:22→17:13)
[2018-07-23] MEDS: LACTULOSE 10 G/15 ML UDC (PYXIS) PO SCH ×3 (05:24→17:13)
[2018-07-23] MEDS: MEROPENEM 1 G in IV NS 0.9% 100 ML IV SCH ×3 (05:24→21:12)
[2018-07-23] MEDS: BLOOD SUGAR DIAGNOSTIC 1 EACH STRIP IN SCH ×3 (05:24→17:13)
[2018-07-23 06:04] LABS: D-DIMER 5.7 mg/L(FEU (0.17-0.50)
[2018-07-23] MEDS: VANCOMYCIN 0.75 GM in IV D5W 250 ML IV SCH (06:48)
--- NOTE | 2018-07-23 08:01 | NUR ---
RT PATIENT REMAINS ORALLY INTUBATED ON [facility] VENT WITH VENT ALARMS CHECKED + AUDIBLE. PATIENT AIRWAY SUCTIONED WITH SMALL AMT OF WHITE SEMI-THICK SECRETIONS. PATIENT NON RESPONSIVE TO VERBAL COMMANDS. AMBU BAG AT [facility]. CONT CURRENT PLAN OF CARE. Addendum: 07/23/18 at 1438 by KENY NUNES RT Amended: Links added.
[2018-07-23 08:31] LABS: ABG BASE EXCESS 2.5 mmol/L; ABG PCO2 36.7 mmHg (35.0-45.0); ABG PH 7.471 (7.350-7.450); ABG PO2 101.5 mmHg (75.0-100.0); AaDO2 141.5 mmHg; COHb 0.5 % (0.5-1.5); MetHb 0.9 % (0.0-1.5); O2Hb 95.6 % (94.0-97.0); SITE, ABG A-Line
[2018-07-23] MEDS: PANTOPRAZOLE 40 MG/PACK PACK GT SCH ×2 (09:51→17:13)
[2018-07-23] MEDS: LEVOTHYROXINE INJ 100 MCG VIAL IV SCH (09:51)
[2018-07-23] MEDS: Z GUARD REMEDY 2 OZ OINT TP SCH ×2 (09:52→21:14)
[2018-07-23] MEDS: HYDROCORTISONE SOD SUCCINATE 100 MG/2 ML VIAL IV SCH (09:52)
--- NOTE | 2018-07-23 17:48 | NUR ---
Pt received from outgoing Rn on mechanical ventilation.Pt turn and repositionq every 2hr as per house protocole .Pt medicated with [place] as needed ad klononpine ,because it showing symptome of agitation and not being confortable.Family at bedside requesting confort care.Text sent to dr Vale awaiting for resultAll medication and all IV antibiotic givent,Pt resting confortablement after receiving klonopin.
--- NOTE | 2018-07-23 21:48 | NUR ---
PT RECEIVED ON VENT VIA ETT ON CHARTED SETTINGS. AIRWAY PATENT AND SECURE VIA ANCHORFAST. PT SEDATED. AMBU BAG AT BEDSIDE ALARMS SET AND AUDIBLE. VENT PLUGGED IN TO RED OUTLET. DISCONNECT ALARMS CHECKED. SUCTIONED A SMALL AMOUNT OF THICK BYRD SECRETIONS. PT RECEIVING NO BREATHING TX AT THIS TIME. HEAD OF BED AT 30 DEGREES. MOUTH SUCTIONED VIA [place]ER. Addendum: 07/23/18 at 2150 by YAN LEE RT Amended: Links added.
[2018-07-24] VITALS (68 sets, daily range): BP systolic 91–126; BP diastolic 39–82
[2018-07-24] MEDS: METOCLOPRAMIDE HCL 10 MG/2 ML VIAL IV SCH ×5 (02:00→22:02)
[2018-07-24] MEDS: LACTULOSE 10 G/15 ML UDC (PYXIS) PO SCH ×5 (02:01→23:59)
[2018-07-24] MEDS: PROPOFOL 100 ML IV PRN (02:04)
[2018-07-24] MEDS: NOREPINEPHRINE 16 MG in IV D5W 500 ML IV PRN (02:25)
[2018-07-24 04:50] LABS: BASOPHILS % (AUTO) 0.2 % (0.0-2.0); EOSINOPHILS % (AUTO) 1.9 % (0.0-6.0); HEMATOCRIT 31 % (39-51); HEMOGLOBIN 9.9 g/dL (13.5-17.5); LYMPHOCYTES # (AUTO) 0.7 /CMM (0.8-4.8); LYMPHOCYTES % (AUTO) 5.9 % (20.0-44.0); MEAN CORPUSCULAR HGB CONC 32 g/dl (31.0-36.0); MEAN CORPUSCULAR VOLUME 87 fL (80-96); MONOCYTES # (AUTO) 0.6 /CMM (0.1-1.30); MONOCYTES % (AUTO) 5.5 % (2.0-12.0); NEUTROPHILS # (AUTO) 9.8 /CMM (1.8-8.9); NEUTROPHILS % (AUTO) 86.5 % (43.0-81.0); PLATELET COUNT (AUTO) 78 /CMM (150-450); RED BLOOD CELL COUNT(AUTO) 3.54 MIL/uL (4.5-6.0); WHITE BLOOD COUNT (AUTO) 11.3 K/uL (4.3-11.0)
[2018-07-24 05:00] LABS: BILIRUBIN,TOTAL 1.2 mg/dL (0.2-1.0); CALCIUM, SERUM 7.6 mg/dL (8.5-10.1); CREATININE 0.9 mg/dL (0.6-1.3); MAGNESIUM 1.5 mg/dL (1.8-2.4); POTASSIUM 3.5 mmol/L (3.5-5.1); TOTAL PROTEIN, SERUM 4.8 g/dL (6.4-8.2)
[2018-07-24 05:11] LABS: ALBUMIN 1.4 g/dL (3.4-5.0)
[2018-07-24] MEDS: BLOOD SUGAR DIAGNOSTIC 1 EACH STRIP IN SCH ×5 (06:00→23:59)
[2018-07-24] MEDS: MEROPENEM 1 G in IV NS 0.9% 100 ML IV SCH ×3 (06:00→20:59)
[2018-07-24] MEDS: INSULIN REGULAR, HUMAN 100 UNIT/ML 3 ML VIAL SQ PRN ×2 (06:27→13:21)
--- NOTE | 2018-07-24 07:15 | NUR ---
received patient sedated on diprivan; see spreadsheet.. intubated 7.0 tolerating vent settings per order. patient on levo per protocol; will titrate as tolerated per protocol. patient with restraints on as he will attempt to pull at ett per rn. rom provided and release of restraint and re applied. patient vss at this time. noted with weeping and pitting edema to bue; arms elevated on pillows above heart. extensive wounds noted with dressings clean dry and intact. cvp 12. maribel monitoring. cvp and maribel calibrated and tubing changed. skin, safety, isolation and aspiration precautions in place and monitoring. tube feeding per order without residuals
--- NOTE | 2018-07-24 08:45 | NUR ---
notified dr coombs patient is nodding yes to pain. per md ok to give morphine sulfate ivf q4h 1mg for pain. aware patient is off diprivan and following commands and remaining cooperative and clam and off levo at this time.
[2018-07-24] MEDS: PANTOPRAZOLE 40 MG/PACK PACK GT SCH ×2 (08:50→17:00)
[2018-07-24] MEDS: LEVOTHYROXINE INJ 100 MCG VIAL IV SCH (08:51)
[2018-07-24] MEDS: HYDROCORTISONE SOD SUCCINATE 100 MG/2 ML VIAL IV SCH (08:51)
[2018-07-24] MEDS: Z GUARD REMEDY 2 OZ OINT TP SCH ×2 (08:51→21:00)
[2018-07-24] MEDS ORDERED: MORPHINE SULFATE INJ 2 MG/ML DISP.SYRIN IM PRN (09:00)
[2018-07-24] MEDS: GLUCERNA 1.2 1,000 ML BOTTLE NG PRN (09:22)
[2018-07-24] MEDS: Potassium Chloride 10 MEQ in IV NS 0.9% 1,000 ML IV PRN (09:22)
--- NOTE | 2018-07-24 09:30 | NUR ---
dr bunn notified patient is awake and responsive off diprivan. pending updated abg this am for possible extubation
[2018-07-24] MEDS: Magnesium 1GM/D5W 100ML PREMIX 100 ML IV SCH ×2 (09:52→10:00)
[2018-07-24] MEDS ORDERED: DC PROPOFOL WHEN EXTUBATED XX PRN (10:00)
[2018-07-24 10:25] LABS: ABG BASE EXCESS 0.4 mmol/L; ABG OXYGEN SATURATION 91.9 % (92.0-98.5); ABG PCO2 46.7 mmHg (35.0-45.0); ABG PH 7.364 (7.350-7.450); ABG PO2 72.9 mmHg (75.0-100.0); AaDO2 86.1 mmHg; COHb 0.7 % (0.5-1.5); MetHb 0.8 % (0.0-1.5); O2Hb 90.5 % (94.0-97.0); PEEP,BG 5 cm H2O; SITE, ABG A-Line
--- NOTE | 2018-07-24 10:25 | NUR ---
dr bunn at bedside. notified of abg. per md if patient tolerates keep patient intubated and will revisit in afternoon. patient calm and cooperative at this time.
--- NOTE | 2018-07-24 11:18 | NUR ---
unable to remove bag 2 of magnesium from medication pyxis. renewed order to have one more gram given per order for total of 2g magnesium
[2018-07-24] MEDS ORDERED: Magnesium 1GM/D5W 100ML PREMIX 100 ML IV SCH (11:30)
[2018-07-24 15:00] LABS: ABG BASE EXCESS 1.1 mmol/L; ABG OXYGEN SATURATION 93.7 % (92.0-98.5); ABG PCO2 47.8 mmHg (35.0-45.0); ABG PH 7.368 (7.350-7.450); ABG PO2 80.3 mmHg (75.0-100.0); AaDO2 77.4 mmHg; COHb 0.7 % (0.5-1.5); MetHb 0.5 % (0.0-1.5); O2Hb 92.6 % (94.0-97.0); PEEP,BG 5 cm H2O; SITE, ABG A-Line
[2018-07-24] MEDS ORDERED: NEUTRA PHOS 1 POWD.PACKET GT ONE (15:30)
--- NOTE | 2018-07-24 19:10 | NUR ---
care endorsed to rn for carmen. patient tolerating nasal cannula 6l a/ox1 confused but pleasant. iv site c/d/i/p. continues without levo. bp stable. banda cath to gravity. all wounds dressed and clean. safety,skin, aspiration precautions in place and monitored throughout the day. isolation precautions monitored.
--- NOTE | 2018-07-24 19:15 | NUR ---
CLOTH FOLDER HAND NOTE PT IS RESTING IN BED AOX1, CONFUSED, WITH HOB ELEVATED, ON 6L O2 VIA NC, TELE SR W/ BBB, NO S/SX OF CARDIAC OR RESPIRATORY DISTRESS, TEMPLETON CATHETER DRAINING TO GRAVITY YELLOW URINE, J CARLOS PICC LINE PATENT FLUSHING WELL AND A LINE PATENT FLUSHING WELL, SKIN KEPT CLEAN AND DRY, SAFETY MAINTAINED AT ALL TIMES, BED IN LOW, LOCKED POSITION, WILL CONTINUE TO MONITOR FOR ANY CHANGES IN CONDITION.
[2018-07-25] VITALS (17 sets, daily range): BP systolic 95–140; BP diastolic 55–93
[2018-07-25 05:03] LABS: BASOPHILS # (AUTO) 0.1 /CMM (0.0-0.2); BASOPHILS % (AUTO) 0.5 % (0.0-2.0); HEMATOCRIT 33 % (39-51); HEMOGLOBIN 10.6 g/dL (13.5-17.5); LYMPHOCYTES # (AUTO) 0.4 /CMM (0.8-4.8); LYMPHOCYTES % (AUTO) 4.2 % (20.0-44.0); MEAN CORPUSCULAR HGB CONC 33 g/dl (31.0-36.0); MEAN CORPUSCULAR VOLUME 90 fL (80-96); MONOCYTES # (AUTO) 0.5 /CMM (0.1-1.30); MONOCYTES % (AUTO) 5.1 % (2.0-12.0); NEUTROPHILS # (AUTO) 8.6 /CMM (1.8-8.9); NEUTROPHILS % (AUTO) 90.2 % (43.0-81.0); PLATELET COUNT (AUTO) 81 /CMM (150-450); RED BLOOD CELL COUNT(AUTO) 3.64 MIL/uL (4.5-6.0); WHITE BLOOD COUNT (AUTO) 9.5 K/uL (4.3-11.0)
[2018-07-25] MEDS: LACTULOSE 10 G/15 ML UDC (PYXIS) PO SCH ×4 (05:03→23:38)
[2018-07-25] MEDS: MEROPENEM 1 G in IV NS 0.9% 100 ML IV SCH ×2 (05:03→13:27)
[2018-07-25] MEDS: METOCLOPRAMIDE HCL 10 MG/2 ML VIAL IV SCH ×4 (05:04→23:36)
[2018-07-25] MEDS: BLOOD SUGAR DIAGNOSTIC 1 EACH STRIP IN SCH ×4 (05:04→23:38)
[2018-07-25 05:18] LABS: CALCIUM, SERUM 7.9 mg/dL (8.5-10.1); CREATININE 0.7 mg/dL (0.6-1.3); MAGNESIUM 1.8 mg/dL (1.8-2.4); PHOSPHORUS 3.6 mg/dL (2.5-4.9)
[2018-07-25 06:14] LABS: LYMPHOCYTES % (MANUAL) 4 % (16-48); MONOCYTES % (MANUAL) 4 % (0-11.0); NEUTROPHILS % (MANUAL) 92 (42-76)
--- NOTE | 2018-07-25 07:00 | NUR ---
RN NOTES RECEIVED PT ON BED, A/Ox2, ON 6L O2 N/C , RESPIRATION EVEN AND UNLABORED, NO SOB NOTED, ON TELE SR WITH BBB, HR IN 80'S , TEMPLETON DRINING TO GRAVITY, PT IS NPO AT THIS TIME, R UPPER ARM PICC LINE SITE CLEAN, DRY AND INTACT, SR UP x3, CALL LIGHT WITHIN EASY REACH, BED LOCKED AND IN LOWEST POSITION, CONTINUE TO MONITOR .
[2018-07-25] MEDS: LEVOTHYROXINE INJ 100 MCG VIAL IV SCH (08:19)
[2018-07-25] MEDS: PANTOPRAZOLE 40 MG/PACK PACK GT SCH ×2 (08:19→16:31)
[2018-07-25] MEDS: HYDROCORTISONE SOD SUCCINATE 100 MG/2 ML VIAL IV SCH (08:19)
[2018-07-25] MEDS: Z GUARD REMEDY 2 OZ OINT TP SCH ×2 (08:21→21:43)
--- NOTE | 2018-07-25 10:00 | NUR ---
RN NOTES A LINE D/AUGUSTO PER MD ORDER .
--- NOTE | 2018-07-25 10:45 | NUR ---
RN NOTES REPORT GIVEN TO DANIEL BARRIENTOS FOR CONTINUITY OF CARE, PT TRANSFEED TO ROOM 109 VIA ACLS , TELE STATUS , IN STABLE CONDITION.
--- NOTE | 2018-07-25 12:46 | NUR ---
TEL RN NOTES POST US GUIDED THORACENTESIS. 1500 ML OUTPUT, GREENISH TINGE CLEAR LIQUID.
--- NOTE | 2018-07-25 12:54 | NUR ---
RN NOTES ACCUCHECK DONE. BS 151 MG/DL. 2 UNITS HUM R GIVEN PER SLIDING SCALE.
--- NOTE | 2018-07-25 12:55 | NUR ---
RN NOTES PLEURAL EFFUSION SPECIMEN SENT TO LAB.
[2018-07-25] MEDS: INSULIN REGULAR, HUMAN 100 UNIT/ML 3 ML VIAL SQ PRN ×3 (13:11→23:39)
--- NOTE | 2018-07-25 17:31 | NUR ---
RN NOTES ACCUCHECK DONE. BS 204 MG/DL. 4 UNITS HUM R GIVEN PER SLIDING SCALE.
--- NOTE | 2018-07-25 18:46 | NUR ---
RN CLOSING NOTES PT RESTING IN BED, A/Ox2, ON 6L O2 N/C , RESPIRATION EVEN AND UNLABORED, NO SOB NOTED, ON TELE SR HR IN 80'S , TEMPLETON DRAINING TO GRAVITY, CCHO PUREED NECTAR THICK LIQUID. R UPPER ARM PICC LINE SITE CLEAN, DRY AND INTACT, SR UP x3, CALL LIGHT WITHIN EASY REACH, BED LOCKED AND IN LOWEST POSITION, ALL NEEDS MET. ASSISTED IN TURNING AND REPOSITIONING. PM CARE DONE. WILL ENDORSE TO NEXT SHIFT FOR MUKUL.
--- NOTE | 2018-07-25 19:20 | NUR ---
TELE/RN NOTES PATIENT IN BED, RESTING COMFORTABLY AT THIS TIME. NO S/S OF ACUTE DISTRESS NOTED. RESPIRATION EVEN AND UNLABORED. NO SOB NOTED. PATIENT A/O X3, DENIES ANY PAIN OR DISCOMFORT AT THIS TIME. PATIENT ON O2 @6LPM VIA N/C. SATURATION NOTED 98%. J CARLOS PICC LINE, NOTED WITH NO S/S OF INFECTION. F/C IN PLACE, DRAINING WELL. SAFETY MAINTAINED, BED AT THE LOWEST POSITION, LOCKED. CALL LIGHT WITHIN REACH, WILL CONTINUE TO MONITOR PATIENT CONDITION PER PLAN OF CARE.
--- NOTE | 2018-07-25 20:35 | NUR ---
RN Notes Received patient awake, HOB elevated with O2 inhalation at 6LPM via NC and tolerated well. Patient is alert and oriented x2. Denies SOB, pain , nausea and vomiting at this time. Right upper arm PICC line patent and intact. Dressing BUE and BLE intact. Tejada cath intact to gravity. Safety measures in place with call light within reach. Kept clean and dry. Will continue to monitor patient.
[2018-07-25] MEDS: Z GUARD REMEDY 2 OZ OINT TP PRN ×2 (21:36→21:37)
[2018-07-26] VITALS: BP 128/81
[2018-07-26 04:00] VITALS: BP 126/70
[2018-07-26] MEDS: METOCLOPRAMIDE HCL 10 MG/2 ML VIAL IV SCH ×4 (05:15→23:13)
[2018-07-26] MEDS: LACTULOSE 10 G/15 ML UDC (PYXIS) PO SCH ×4 (05:16→23:13)
[2018-07-26] MEDS: BLOOD SUGAR DIAGNOSTIC 1 EACH STRIP IN SCH ×4 (05:36→23:29)
--- NOTE | 2018-07-26 06:20 | NUR ---
RN Notes Patient sleep on and off overnight, asking for food. Vital signs stable, afebrile. Denies SOB, pain, nausea and vomiting. Wound care done. Tejada cath intact to gravity with adequate out put. Current diet tolerated well, aspiration precaution observed. Turned and repositioned per protocol. Safety measures and fall precaution observed. Will continue to monitor and will endorse accordingly.
[2018-07-26 06:54] LABS: BASOPHILS % (AUTO) 0.4 % (0.0-2.0); EOSINOPHILS % (AUTO) 0.1 % (0.0-6.0); HEMATOCRIT 33 % (39-51); HEMOGLOBIN 10.3 g/dL (13.5-17.5); LYMPHOCYTES # (AUTO) 0.6 /CMM (0.8-4.8); LYMPHOCYTES % (AUTO) 5.8 % (20.0-44.0); MEAN CORPUSCULAR HGB CONC 31 g/dl (31.0-36.0); MEAN CORPUSCULAR VOLUME 89 fL (80-96); NEUTROPHILS # (AUTO) 9.2 /CMM (1.8-8.9); NEUTROPHILS % (AUTO) 84.7 % (43.0-81.0); PLATELET COUNT (AUTO) 126 /CMM (150-450); RED BLOOD CELL COUNT(AUTO) 3.66 MIL/uL (4.5-6.0); WHITE BLOOD COUNT (AUTO) 10.8 K/uL (4.3-11.0)
[2018-07-26 07:04] LABS: CALCIUM, SERUM 7.9 mg/dL (8.5-10.1); CREATININE 0.8 mg/dL (0.6-1.3); POTASSIUM 4.1 mmol/L (3.5-5.1)
[2018-07-26 08:00] VITALS: BP 117/80
[2018-07-26] MEDS: PANTOPRAZOLE 40 MG/PACK PACK GT SCH ×2 (08:43→17:03)
[2018-07-26] MEDS: LEVOTHYROXINE INJ 100 MCG VIAL IV SCH (08:44)
[2018-07-26] MEDS: HYDROCORTISONE SOD SUCCINATE 100 MG/2 ML VIAL IV SCH (08:44)
[2018-07-26] MEDS: Z GUARD REMEDY 2 OZ OINT TP SCH ×2 (08:47→21:19)
--- NOTE | 2018-07-26 09:52 | NUR ---
VANI contacted [facility] [place] and spoke with pt's clinician Bria De to inform her that pt. has been downgraded from ICU to [facility]. Bria informed SW she and the clinical team will come by tomorrow to see the pt. and speak with VANI regarding discharge plan.
[2018-07-26] MEDS: SPIRONOLACTONE 25 MG TABLET PO SCH (10:59)
[2018-07-26] MEDS: INSULIN REGULAR, HUMAN 100 UNIT/ML 3 ML VIAL SQ PRN ×3 (11:35→23:24)
[2018-07-26] MEDS: ALBUTEROL FS 2.5 MG/0.5 ML VIAL.NEB NEB PRN (12:00)
[2018-07-26 16:00] VITALS: BP 139/80
--- NOTE | 2018-07-26 19:51 | NUR ---
MS RN NOTE: RECEIVED PT ON BED ALERT AND ORIENTED X2. ABLE TO MAKE NEEDS KNOWN. NO APPARENT DISTRESS NOTED. DENIES PAIN AND DISCOMFORT AT THIS TIME. ON 6LPM NASAL CANNULA, BREATHING EVEN AND UNLABORED WITH NORMAL RESPIRATIONS. RIGHT UPPER ARM PICC LINE INTACT AND PATENT, FLUSHING WELL. TEMPLETON CATH INTACT AND DRAINING WELL. CALL LIGHT PLACED WITHIN REACH. KEPT CLEAN, DRY AND COMFORTABLE. SIDE RAILS UP X3. BED ALARM ON. BED LOCKED AND IN LOWEST POSITION. WILL CONTINUE TO MONITOR PT.
[2018-07-26 20:00] VITALS: BP 132/85
[2018-07-27 04:00] VITALS: BP 123/81
[2018-07-27] MEDS: METOCLOPRAMIDE HCL 10 MG/2 ML VIAL IV SCH ×4 (05:43→23:07)
[2018-07-27] MEDS: LACTULOSE 10 G/15 ML UDC (PYXIS) PO SCH ×4 (05:44→23:08)
[2018-07-27] MEDS: BLOOD SUGAR DIAGNOSTIC 1 EACH STRIP IN SCH ×4 (05:55→23:07)
[2018-07-27 06:22] LABS: BASOPHILS % (AUTO) 0.4 % (0.0-2.0); EOSINOPHILS % (AUTO) 0.1 % (0.0-6.0); HEMATOCRIT 33 % (39-51); HEMOGLOBIN 10.5 g/dL (13.5-17.5); LYMPHOCYTES # (AUTO) 0.8 /CMM (0.8-4.8); LYMPHOCYTES % (AUTO) 7.8 % (20.0-44.0); MEAN CORPUSCULAR HGB CONC 32 g/dl (31.0-36.0); MEAN CORPUSCULAR VOLUME 90 fL (80-96); MONOCYTES % (AUTO) 9.7 % (2.0-12.0); NEUTROPHILS # (AUTO) 8.3 /CMM (1.8-8.9); PLATELET COUNT (AUTO) 137 /CMM (150-450); RED BLOOD CELL COUNT(AUTO) 3.68 MIL/uL (4.5-6.0); WHITE BLOOD COUNT (AUTO) 10.1 K/uL (4.3-11.0)
[2018-07-27 06:39] LABS: CALCIUM, SERUM 8.4 mg/dL (8.5-10.1); CREATININE 0.8 mg/dL (0.6-1.3); POTASSIUM 3.8 mmol/L (3.5-5.1)
--- NOTE | 2018-07-27 06:41 | NUR ---
MS RN NOTE: NO CHANGES NOTED THROUGHOUT THE SHIFT. NO APPARENT DISTRESS NOTED. DENIES PAIN AND DISCOMFORT AT THIS TIME. RIGHT UPPER ARM PICC LINE INTACT AND PATENT, FLUSHING WELL. TEMPLETON CATH INTACT AND PATENT, DRAINED 450ML OF CLEAR YELLOW URINE OUTPUT. KEPT CLEAN, DRY AND COMFORTABLE. CALL LIGHT PLACED WITHIN REACH. SAFETY AND FALL PRECAUTIONS OBSERVED AND MAINTAINED. WILL ENDORSE TO DAY SHIFT RN FOR CONTINUITY OF CARE.
[2018-07-27 06:49] LABS: FERRITIN 222 ng/mL (8-388)
--- NOTE | 2018-07-27 07:23 | NUR ---
RN MS OPENING NOTES RECEIVED BEDSIDE REPORT PATIENT A/O X2-3 NO SIGNS OR SYMPTOMS OF RESPIRATORY DISTRESS ON 4 LTRS NASAL CANNULA. NO C/O ACUTE PAIN. TEMPLETON CATH DRAINING CLEAR YELLOW URINE. PATIENT HAS MULTIPLE WOUNDS THAT ARE WEEPING. J CARLOS PICC LINE INTACT WITH NO REDNESS OR WARMTH NOTED PATENT. CONSENT SIGNED FOR LEFT SIDED THORACENTESIS TODAY.SAFETY AND ASPIRATION PRECAUTIONS IN PLACE BED IN LOW POSITION CALL LIGHT WITHIN REACH WILL CONT TO MONITOR ACCORDINGLY
[2018-07-27 08:00] VITALS: BP 133/84
[2018-07-27 08:00] LABS: IRON, SERUM 70 ug/dl (50-175); TOTAL IRON BINDING CAPACITY 237 ug/dl (250-450)
[2018-07-27] MEDS: LEVOTHYROXINE INJ 100 MCG VIAL IV SCH (08:30)
[2018-07-27] MEDS: HYDROCORTISONE SOD SUCCINATE 100 MG/2 ML VIAL IV SCH (08:30)
[2018-07-27] MEDS: SPIRONOLACTONE 25 MG TABLET PO SCH (08:30)
[2018-07-27] MEDS: Z GUARD REMEDY 2 OZ OINT TP SCH ×2 (08:30→21:22)
[2018-07-27] MEDS: PANTOPRAZOLE 40 MG/PACK PACK GT SCH (08:30)
--- NOTE | 2018-07-27 10:08 | NUR ---
LEFT SIDE THORACENTESIS DONE 1400 ML REMOVED
--- NOTE | 2018-07-27 10:26 | NUR ---
CONFIRMED WITH DR STREETER IF HE WANTED FLUID SENT TO LAB . NOT AT THIS TIME PER
[2018-07-27] MEDS: CARVEDILOL 3.125 MG TABLET PO SCH ×2 (11:03→21:23)
[2018-07-27] MEDS: INSULIN REGULAR, HUMAN 100 UNIT/ML 3 ML VIAL SQ PRN ×2 (12:00→18:31)
[2018-07-27] MEDS: PROSOURCE / PROSTAT (PYXIS) 30 ML UDC GT SCH (14:30)
[2018-07-27 16:00] VITALS: BP 103/69
--- NOTE | 2018-07-27 18:30 | NUR ---
BLOOD SUGAR 39 MG/DL 2X ORANGE JUICE GIVEN WILL RECHECK IN 15 MINUTES PER PROTOCOL.
--- NOTE | 2018-07-27 19:00 | NUR ---
RN NOTES BS 26 MG/DL 3X OJ 2 X CRANBERRY RECHECKED BS 105 MG/DL
--- NOTE | 2018-07-27 19:01 | NUR ---
RN MS OPENING NOTES PATIENT A/O X3 NO SIGNS OR SYMPTOMS OF RESPIRATORY DISTRESS ON 4 LTRS NASAL CANNULA. NO C/O ACUTE PAIN. TEMPLETON CATH DRAINING CLEAR YELLOW URINE. PATIENT HAS MULTIPLE WOUNDS THAT ARE WEEPING. J CARLOS PICC LINE INTACT WITH NO REDNESS OR WARMTH NOTED PATENT. CONSENT SIGNED FOR LEFT SIDED THORACENTESIS TODAY 1400 ML REMOVED 1800 BS 39 MG/DL ORANGE JUICE GIVEN 26 MG/DL 2X OJ AND CRANBERRY JUICE GIVEN RECHECKED 105 MG/DL SAFETY AND ASPIRATION PRECAUTIONS IN PLACE BED IN LOW POSITION ABLE TO MAKE NEEDS KNOWN AND ALL MET
--- NOTE | 2018-07-27 19:27 | NUR ---
REPORT ENDORSED TO NOC
--- NOTE | 2018-07-27 19:30 | NUR ---
RN NOTES RECEIVED PT. AWAKE ON BED, A/OX3, WITH PERIOD OF CONFUSION, F/C DRAINING CLEAR YELLOW URINE, PICC LINE IN PLACE, DENIES PAIN, NO SOB, WITH GENERALIZED EDEMA, CALL LIGHT WITHIN REACH, [id number], CONTINUE TO MONITOR
[2018-07-27 20:00] VITALS: BP_SYST 113; BP_SYST 115; BP_DIAS 77
[2018-07-27] MEDS: PANTOPRAZOLE 40 MG TABLET.DR PO SCH (21:21)
--- NOTE | 2018-07-28 | NUR ---
RN NOTES PT. BLOOD SUGAR-188, REFUSED COVERAGE BECAUSE EARLIER PT. BLOOD SUGAR DROPPED TO 39
[2018-07-28 04:00] VITALS: BP 116/75
[2018-07-28] MEDS: LACTULOSE 10 G/15 ML UDC (PYXIS) PO SCH ×4 (05:10→23:08)
[2018-07-28] MEDS: BLOOD SUGAR DIAGNOSTIC 1 EACH STRIP IN SCH ×4 (05:10→23:10)
[2018-07-28] MEDS: METOCLOPRAMIDE HCL 10 MG/2 ML VIAL IV SCH ×4 (05:10→23:07)
--- NOTE | 2018-07-28 06:00 | NUR ---
RN NOTES PT. REFUSED HIS LACTULOSE,
[2018-07-28 06:09] LABS: CALCIUM, SERUM 8.2 mg/dL (8.5-10.1); CREATININE 0.7 mg/dL (0.6-1.3); POTASSIUM 3.7 mmol/L (3.5-5.1)
[2018-07-28 06:20] LABS: BASOPHILS % (AUTO) 0.3 % (0.0-2.0); EOSINOPHILS % (AUTO) 0.2 % (0.0-6.0); HEMATOCRIT 32 % (39-51); HEMOGLOBIN 10.2 g/dL (13.5-17.5); LYMPHOCYTES # (AUTO) 0.7 /CMM (0.8-4.8); MEAN CORPUSCULAR HGB CONC 32 g/dl (31.0-36.0); MEAN CORPUSCULAR VOLUME 90 fL (80-96); MONOCYTES # (AUTO) 0.6 /CMM (0.1-1.30); MONOCYTES % (AUTO) 7.6 % (2.0-12.0); NEUTROPHILS # (AUTO) 6.7 /CMM (1.8-8.9); NEUTROPHILS % (AUTO) 82.9 % (43.0-81.0); PLATELET COUNT (AUTO) 130 /CMM (150-450); RED BLOOD CELL COUNT(AUTO) 3.57 MIL/uL (4.5-6.0); WHITE BLOOD COUNT (AUTO) 8.1 K/uL (4.3-11.0)
--- NOTE | 2018-07-28 06:41 | NUR ---
RN NOTES AWAKE, DENIES PAIN, NO SOB, MORNING CARE RENDERED, CALL LIGHT WITHIN REACH, [id number], PT. NEEDS ATTENDED
--- NOTE | 2018-07-28 07:00 | NUR ---
PATIENT RESTING IN ROOM - NO COMPLAINTS OR CONCERNS- SAFETY PRECAUTIONS IN PLACE- RECEIVED BEDSIDE SBAR FROM PREVIOUS RN - WILL CONTINUE TO MONITOR REPORT AND RECORD
[2018-07-28 08:00] VITALS: BP 105/70
[2018-07-28] MEDS: SPIRONOLACTONE 25 MG TABLET PO SCH (08:38)
[2018-07-28] MEDS: LEVOTHYROXINE INJ 100 MCG VIAL IV SCH (08:38)
[2018-07-28] MEDS: PANTOPRAZOLE 40 MG TABLET.DR PO SCH ×2 (08:39→20:28)
[2018-07-28] MEDS: HYDROCORTISONE SOD SUCCINATE 100 MG/2 ML VIAL IV SCH (08:39)
[2018-07-28] MEDS: CARVEDILOL 3.125 MG TABLET PO SCH ×2 (08:39→20:28)
[2018-07-28] MEDS: Z GUARD REMEDY 2 OZ OINT TP SCH ×2 (08:39→20:29)
[2018-07-28] MEDS: PROSOURCE / PROSTAT (PYXIS) 30 ML UDC GT SCH (09:00)
--- NOTE | 2018-07-28 12:00 | NUR ---
PATIENT RESTING IN BED- GUTUBE AND PIC INFUSING - NO S/S OF PAIN- SAFETY PRECAUTION IN PLACE- VITALS STABLE - WILL CONTINUE TO MONITOR REPORT AND RECORD Addendum: 07/28/18 at 1555 by OJ NGO RN juan antonio alanis
--- NOTE | 2018-07-28 15:55 | NUR ---
patient resting in bed- no complaints- no s/s of distress - safety precautions in place -wound care complete- patient tolerating diet - Tejada patent - vitals stable-will continue to monitor report and record
[2018-07-28 16:00] VITALS: BP 113/71
[2018-07-28 17:50] VITALS: BP 113/71
--- NOTE | 2018-07-28 18:04 | NUR ---
overall patient has had a very restful day- no complaints of pain- showered, walked- had family come into see him- he admits he needs assistance to stop drinking - tolerating diet- no hallucinations, very mild temperament - safety precautions in place- vitals stable -will provide bedside sbar report to pm rn
--- NOTE | 2018-07-28 19:30 | NUR ---
MS RN NOTES RECEIVED PT ON BED. A/O X 4. ON ROOM AIR, INFORMED PT TO WEAR NASAL CANNULA 2LPM. TEMPLETON CATH DRAINING YELLOW URINE. IV ACCESS ON J CARLOS PICC HL, PATENT AND INTACT. HEAD OF BED ELEVATED. SIDE RAILS UP. CALL LIGHT WITHIN REACH. BED ALARM ON. WILL MONITOR PT CLOSELY.
[2018-07-28 20:00] VITALS: BP 120/84
--- NOTE | 2018-07-28 23:21 | NUR ---
MS RN NOTES PT REFUSE LACTULOSE. EXPLAINED RISK AND BENEFITS. PT STILL REFUSED.
--- NOTE | 2018-07-28 23:38 | NUR ---
MS RN NOTES PT KEEPS REMOVING NASAL CANNULA, INFORMED THE RISK AND BENEFITS. PT STILL REFUSED NASAL CANNULA.
--- NOTE | 2018-07-29 02:45 | NUR ---
MS RN NOTES PT REFUSE WOUND CARE AND BED BATH. EXPLAINED RISK AND BENEFITS. PT STILL REFUSED. WITNESSED BY MACERATOR OPERATOR. CHARGE NURSE INFORMED.
[2018-07-29 04:00] VITALS: BP 120/72
[2018-07-29] MEDS: METOCLOPRAMIDE HCL 10 MG/2 ML VIAL IV SCH ×6 (05:00→23:00)
[2018-07-29] MEDS: LACTULOSE 10 G/15 ML UDC (PYXIS) PO SCH ×5 (05:04→18:00)
[2018-07-29] MEDS: BLOOD SUGAR DIAGNOSTIC 1 EACH STRIP IN SCH ×3 (05:07→17:36)
--- NOTE | 2018-07-29 05:07 | NUR ---
MS RN NOTES PT REFUSING ACCU CHECK. EXPLAINED RISK AND BENEFITS. PT STILL REFUSED. WILL MONITOR PT CLOSELY.
--- NOTE | 2018-07-29 05:15 | NUR ---
MS RN NOTES PT REFUSED ACCUCHECK AND AM MEDS. INFORMED RISK AND BENEFITS. PT STILL REFUSED. INFORMED PIPE STEM SAWYER DR FOR PT CONFUSION AND REFUSING MEDICATION.
--- NOTE | 2018-07-29 05:30 | NUR ---
MS RN NOTES PT REFUSING WOUND CARE AND BEDBATH JEROD. PER PT HE DOES NOT NEED IT. EXPLAINED RISK AND BENEFITS PT STILL REFUSED.
[2018-07-29 07:01] LABS: BASOPHILS % (AUTO) 0.6 % (0.0-2.0); EOSINOPHILS % (AUTO) 0.2 % (0.0-6.0); HEMATOCRIT 33 % (39-51); HEMOGLOBIN 10.6 g/dL (13.5-17.5); LYMPHOCYTES % (AUTO) 11.2 % (20.0-44.0); MEAN CORPUSCULAR HGB CONC 32 g/dl (31.0-36.0); MEAN CORPUSCULAR VOLUME 90 fL (80-96); MONOCYTES # (AUTO) 0.7 /CMM (0.1-1.30); MONOCYTES % (AUTO) 8.5 % (2.0-12.0); NEUTROPHILS # (AUTO) 6.8 /CMM (1.8-8.9); NEUTROPHILS % (AUTO) 79.5 % (43.0-81.0); PLATELET COUNT (AUTO) 141 /CMM (150-450); RED BLOOD CELL COUNT(AUTO) 3.67 MIL/uL (4.5-6.0); WHITE BLOOD COUNT (AUTO) 8.5 K/uL (4.3-11.0)
[2018-07-29 07:28] LABS: CALCIUM, SERUM 8.1 mg/dL (8.5-10.1); CREATININE 0.6 mg/dL (0.6-1.3); POTASSIUM 3.9 mmol/L (3.5-5.1)
--- NOTE | 2018-07-29 07:30 | NUR ---
MS RN INITIAL NOTES RECEIVED PT IN BED, HOB ELEVATED TO 30 DEG. PT REMOVED OXYGEN AND REFUSES TO PLACE OXYGEN BACK ON. O2 IS 91%. PT INSISTS ON BEING LEFT ALONE. PT IS ORIENTED TO PERSON, CONFUSED. PT STATES, "IM IN [place]." F/C IN PLACE. J CARLOS PICCLINE C/D/P/I. BED IN LOCKED/LOWEST POSITION. CALL LIGHT IN REACH. WILL CONT TO MONITOR.
[2018-07-29 08:00] VITALS: BP 108/74
[2018-07-29] MEDS: PROSOURCE / PROSTAT (PYXIS) 30 ML UDC GT SCH (09:38)
[2018-07-29] MEDS: HYDROCORTISONE SOD SUCCINATE 100 MG/2 ML VIAL IV SCH (09:38)
[2018-07-29] MEDS: CARVEDILOL 3.125 MG TABLET PO SCH ×2 (09:39→21:00)
--- NOTE | 2018-07-29 09:39 | NUR ---
MS RN NOTES PULLED ANOTHER SYTHROID MED, THE FIRST ONE FELL ON THE FLOOR.
[2018-07-29] MEDS: POTASSIUM CHLORIDE 20 MEQ TAB.PRT.SR PO SCH (09:40)
[2018-07-29] MEDS: PANTOPRAZOLE 40 MG TABLET.DR PO SCH ×2 (09:40→21:00)
[2018-07-29] MEDS: FUROSEMIDE 40 MG TABLET PO SCH (09:40)
[2018-07-29] MEDS: SPIRONOLACTONE 25 MG TABLET PO SCH (09:40)
[2018-07-29] MEDS: Z GUARD REMEDY 2 OZ OINT TP PRN (09:41)
[2018-07-29] MEDS: Z GUARD REMEDY 2 OZ OINT TP SCH ×2 (09:42→21:00)
[2018-07-29] MEDS: LEVOTHYROXINE SODIUM 125 MCG TABLET PO SCH (09:43)
[2018-07-29 14:00] VITALS: BP 138/84
[2018-07-29 16:00] VITALS: BP 138/84
--- NOTE | 2018-07-29 18:42 | NUR ---
MS RN END OF SHIFT NOTES PT STABLE, NOT COOPERATIVE. DOES NOT WANT TO BE TOUCHED, REFUSING SOME MEDS. TALKING TO HIMSELF; ATE 25% DINNER. BS STABLE. WILL ENDORSE TO PM NURSE FOR MUKUL.
[2018-07-29 20:00] VITALS: BP_SYST 138; BP_SYST 146; BP_DIAS 66; BP_DIAS 84
--- NOTE | 2018-07-29 20:47 | NUR ---
MS RN OPENING NOTES: PT STABLE, NOT COOPERATIVE. DOES NOT WANT TO BE TOUCHED, . TALKING TO HIMSELF; CONFUSED. ATE 25% DINNER. BS STABLE. WILL CONTINUE TO MONITER. Addendum: 07/30/18 at 0442 by ANKITA JOHN RN 07/29/[id number] MS RN OPENING: PT STABLE, HAS REMOVED O2 WHEN ENTERING PTS ROOM. DOES NOT WANT TO BE TOUCHED. WAS NOTIFIED THAT BLOOD SUGAR WAS 73 ON LAST ACUCHECK BUT HAS BEEN REFUSING ALL MEDICATIONS HAVE BEEN INFORMED THAT PT HAS NOT BEEN EATING MUCH. WILL CONTINUE TO MONITER. PT IS CONFUSED AND NONCOMPLIANT. WILL CONTINUE TO MONITER AND TRY TO GIVE THE MEDICATIONS ECT.
--- NOTE | 2018-07-29 21:00 | NUR ---
PT IS REFUSING TO HAVE VITAL SIGNS TAKEN AND IS BEING COMBATIVE AND TRYING TO GET OUT OF BED
--- NOTE | 2018-07-29 21:52 | NUR ---
pt is refusing all medications and is non comppliant. pt refuses to give reason for not wanting meds. wants to be left alone.
--- NOTE | 2018-07-30 02:14 | NUR ---
WAS ABLE TO CONVINCE PT TO EAT FOOD, DRINK JUICE, WATER AND BE CLEANED. STILL CONTINUES TO REFUSE MEDICATIONS. REFUSED. 2300 REGLAN AND 0000 ACCUCHECK AND LACTULOSE WELL.
[2018-07-30 04:00] VITALS: BP 119/68
[2018-07-30] MEDS: METOCLOPRAMIDE HCL 10 MG/2 ML VIAL IV SCH ×4 (05:00→23:00)
--- NOTE | 2018-07-30 05:56 | NUR ---
PT CONTINUES TO REFUSE MEDICATION. REFUSED ACCUCHECK AND LACTULOSE AT 0600
--- NOTE | 2018-07-30 06:59 | NUR ---
MS RN CLOSING NOTES RECEIVED BEDSIDE REPORT PATIENT A/O X1 SIGNS SOB AT TIMES. RUMIDLINE IN TACT SL. ON 3 LTRS NASAL CANNULA. NO C/O ACUTE PAIN. CONFUSED, REFUSED ALL MEDICATIONS THROUGHOUT THE NIGHT. CLEANED PT AND WAS ABLE TO GET HIM TO EAT A TURKEY SANDWHICH, APPLE JUICE, CRACKERS AND A PEANUT BUTTER AND JELLY SANDWICH DUE TO HIS LOW BLOOD SUGAR AND REFUSAL OF ACCUCHECKS. TEMPLETON CATH DRAINING CLEAR YELLOW URINE. 1050 OUT. PATIENT HAS MULTIPLE WOUNDS THAT ARE WEEPING. SAFETY AND ASPIRATION PRECAUTIONS IN PLACE BED IN LOW POSITION CALL LIGHT WITHIN REACH WILL CONT TO MONITOR ACCORDINGLY WILL ENDORSE TO AM NURSE TO CONTINUE PLAN OF CARE.
[2018-07-30 07:05] LABS: BASOPHILS # (AUTO) 0.1 /CMM (0.0-0.2); BASOPHILS % (AUTO) 0.6 % (0.0-2.0); EOSINOPHILS % (AUTO) 0.3 % (0.0-6.0); HEMATOCRIT 33 % (39-51); HEMOGLOBIN 10.6 g/dL (13.5-17.5); LYMPHOCYTES # (AUTO) 0.8 /CMM (0.8-4.8); LYMPHOCYTES % (AUTO) 8.5 % (20.0-44.0); MEAN CORPUSCULAR HGB CONC 32 g/dl (31.0-36.0); MEAN CORPUSCULAR VOLUME 90 fL (80-96); MONOCYTES # (AUTO) 0.8 /CMM (0.1-1.30); MONOCYTES % (AUTO) 8.7 % (2.0-12.0); NEUTROPHILS # (AUTO) 7.8 /CMM (1.8-8.9); NEUTROPHILS % (AUTO) 81.9 % (43.0-81.0); PLATELET COUNT (AUTO) 151 /CMM (150-450); RED BLOOD CELL COUNT(AUTO) 3.69 MIL/uL (4.5-6.0); WHITE BLOOD COUNT (AUTO) 9.5 K/uL (4.3-11.0)
[2018-07-30 07:17] LABS: CALCIUM, SERUM 7.9 mg/dL (8.5-10.1); CREATININE 0.7 mg/dL (0.6-1.3); POTASSIUM 3.4 mmol/L (3.5-5.1)
[2018-07-30 08:00] VITALS: BP 133/62
--- NOTE | 2018-07-30 08:00 | NUR ---
MS1/RN AM SHIFT INITIAL NOTES RECEIVED PT AWAKE IN BED, PT CONFUSED AND VERBALLY AGGRESSIVE, REFUSED TO BE TOUCH. KEEPS REMOVING SUPPLEMENTAL O2 VIA N/C, BUT ON ROOM AIR SATURATING @ 98%, RESPIRATIONS EVEN & UNLABORED. NO ACUTE CHANGE OF CONDITION NOTED. PICC LINE INTACT, NO S/S OF INFECTION. TEMPLETON CATHETER NOTED WITH YELLOW URINE OUTPUT. WOUND DRESSING INTACT AND CLEAN. SCHEDULED AM MEDS TO BE GIVEN. PT IS COMFORTABLE. CL WITHIN REACHED AND SAFETY MAINTAINED. ON GOING MONITORING.
--- NOTE | 2018-07-30 08:06 | NUR ---
pt refused am cxr, charge nurse informed
[2018-07-30] MEDS: BLOOD SUGAR DIAGNOSTIC 1 EACH STRIP IN SCH ×4 (08:50→18:00)
[2018-07-30] MEDS: SPIRONOLACTONE 25 MG TABLET PO SCH (08:51)
[2018-07-30] MEDS: HYDROCORTISONE SOD SUCCINATE 100 MG/2 ML VIAL IV SCH (08:51)
[2018-07-30] MEDS: LACTULOSE 10 G/15 ML UDC (PYXIS) PO SCH ×4 (08:51→18:00)
[2018-07-30] MEDS: LEVOTHYROXINE SODIUM 125 MCG TABLET PO SCH (08:51)
[2018-07-30] MEDS: PROSOURCE / PROSTAT (PYXIS) 30 ML UDC GT SCH (08:51)
[2018-07-30] MEDS: Z GUARD REMEDY 2 OZ OINT TP SCH ×2 (08:52→21:00)
[2018-07-30] MEDS: CARVEDILOL 3.125 MG TABLET PO SCH ×2 (08:52→21:00)
[2018-07-30] MEDS: PANTOPRAZOLE 40 MG TABLET.DR PO SCH ×2 (08:52→21:00)
[2018-07-30] MEDS: POTASSIUM CHLORIDE 20 MEQ TAB.PRT.SR PO SCH ×4 (08:52→13:00)
[2018-07-30] MEDS: FUROSEMIDE 40 MG TABLET PO SCH (08:52)
--- NOTE | 2018-07-30 09:45 | NUR ---
MS1/RN ROUNDS - DIRECTOR OF INCOME TAX MARLINK UPDATE PT'S CONDITION, ALSO NOTIFY DIRECTOR OF INCOME TAX THAT PT REFUSED ALL HIS MEDICATIONS THIS MORNING AND THAT PT IS VERBALLY AGGRESSIVE, REFUSED TO BE TOUCHED. NO NEW ORDER RECEIVED AT THIS TIME.
[2018-07-30] MEDS ORDERED: POTASSIUM CHLORIDE 20 MEQ TAB.PRT.SR PO ONE (10:30)
[2018-07-30] MEDS: FUROSEMIDE 100 MG/10 ML VIAL IV SCH ×3 (11:00→19:00)
--- NOTE | 2018-07-30 12:30 | NUR ---
MS1/RN NOON ROUNDS PT REFUSED MEDICATIONS AND GLUCOSE CHECKED BUT WAS ABLE TO CONVINCE TO HAVE ICE CREAM AND 50% OF MEAL. ON GOING MONITORING.
[2018-07-30 16:00] VITALS: BP 127/70
--- NOTE | 2018-07-30 19:30 | NUR ---
MS1/RN AM SHIFT END NOTES NO ACUTE CHANGE OF CONDITION NOTED DURING THE SHIFT, ALL NEEDS MET. PRIMARY WELL AWARE OF PT'S REFUSAL OF MEDICATIONS. PT NOTED TO BE CONFUSED, SEEMING TO TALK TO SOMEBODY THAT IS NOT PRESENT, COMBATIVE AT TIMES. PT ENDORSED TO PM NURSE TO CONTINUE CARE. CL WITHIN REACHED AND SAFETY MAINTAINED.
[2018-07-30 20:00] VITALS: BP 127/70
[2018-07-30] MEDS ORDERED: LORAZEPAM INJ 2 MG/ML VIAL IV PRN (20:00)
--- NOTE | 2018-07-30 20:05 | NUR ---
MS RN OPENING NOTES: RECEIVED BEDSIDE REPORT PATIENT A/O X1 NOT USUING HIS NASAL CANUAL CURRENTLY. BUT NO SOB NOTED. SATTING WELL ON ROOM AIR. . RUMIDLINE IN TACT SL. NO C/O ACUTE PAIN. CONFUSED, WAS TOLD PT REFUSED ALL MEDICATIONS THROUGHOUT THE DAY SHIFT. PT HAS TEMPLETON AND IS DRAINING WELL. PATIENT HAS MULTIPLE WOUNDS THAT ARE WEEPING. SAFETY AND ASPIRATION PRECAUTIONS IN PLACE BED IN LOW POSITION CALL LIGHT WITHIN REACH WILL CONT TO MONITOR ACCORDINGLY .
[2018-07-30 21:00] VITALS: BP 127/70
--- NOTE | 2018-07-30 22:17 | NUR ---
RN UNABLE TO PULL OUT LASIX DUE ON 1899 FROM [employer], SPOKE TO PHARMACIST, NEED TO ENTER NEW ORDER FOR LASIX TIME ONE SO PHARMACY CAN VERIFY THE ORDER.
[2018-07-30] MEDS ORDERED: FUROSEMIDE 40 MG/4 ML VIAL IV ONE (22:30)
[2018-07-31] VITALS: BP 127/70
--- NOTE | 2018-07-31 03:15 | NUR ---
PT CONTIUES TO REFUSE ALL MEDS. DOCTOR IS AWARE. BK PUT IN AN ORDER FOR ATIVAN PRN 1 MG. LASIX NON ADMIN AT 1900 RESCHEDULED AND GIVEN AT 2300.
--- NOTE | 2018-07-31 03:38 | NUR ---
RN PT NOTED LETHARGIC BUT VERBALLY RESPONSIVE, ACCU CHECK DONE WITH RESULT OF 44, REPEATED READINGS 11 AND 8, PROTOCOL INITIATED, IV D10 ADMIN ORDERED, GLUCOSE STAT ORDERED, LAB NOTIFIED.
[2018-07-31] MEDS: DEXTROSE 10% IN WATER 250 ML BAG IV PRN ×2 (03:46→04:14)
[2018-07-31 04:07] LABS: BASOPHILS # (AUTO) 0.1 /CMM (0.0-0.2); BASOPHILS % (AUTO) 0.7 % (0.0-2.0); HEMATOCRIT 31 % (39-51); LYMPHOCYTES # (AUTO) 0.8 /CMM (0.8-4.8); LYMPHOCYTES % (AUTO) 9.9 % (20.0-44.0); MEAN CORPUSCULAR HGB CONC 33 g/dl (31.0-36.0); MEAN CORPUSCULAR VOLUME 90 fL (80-96); MONOCYTES # (AUTO) 0.5 /CMM (0.1-1.30); MONOCYTES % (AUTO) 6.7 % (2.0-12.0); NEUTROPHILS # (AUTO) 6.6 /CMM (1.8-8.9); NEUTROPHILS % (AUTO) 81.7 % (43.0-81.0); PLATELET COUNT (AUTO) 123 /CMM (150-450); RED BLOOD CELL COUNT(AUTO) 3.45 MIL/uL (4.5-6.0); WHITE BLOOD COUNT (AUTO) 8.1 K/uL (4.3-11.0)
--- NOTE | 2018-07-31 04:18 | NUR ---
WENT INTO PTS ROOM TO MAKE ROUNDS, FOUND PT MORE LETHARGIC THAN USUAL. PREFORMED ACCUCHECK. PTS FIRST READING WAS 44, SECOND 11, AND THIRD READING WAS <10. INITIATED PROTOCOL OF PRN IV D10 % . CALLED LAB FOR A STAT BLOOD GLUCOSE POC READING.
[2018-07-31 04:20] LABS: ALBUMIN 1.8 g/dL (3.4-5.0); BILIRUBIN,TOTAL 1.3 mg/dL (0.2-1.0); CALCIUM, SERUM 7.9 mg/dL (8.5-10.1); CREATININE 0.8 mg/dL (0.6-1.3); PHOSPHORUS 2.9 mg/dL (2.5-4.9)
[2018-07-31] MEDS: Magnesium 1GM/D5W 100ML PREMIX 100 ML IV SCH ×4 (05:38→09:23)
[2018-07-31] MEDS: METOCLOPRAMIDE HCL 10 MG/2 ML VIAL IV SCH ×4 (05:38→22:41)
[2018-07-31] MEDS: POTASSIUM CL. PREMIX PERIPHER. 50 ML IV SCH ×4 (05:50→09:23)
[2018-07-31] MEDS: BLOOD SUGAR DIAGNOSTIC 1 EACH STRIP IN SCH ×6 (05:50→23:48)
--- NOTE | 2018-07-31 06:43 | NUR ---
HUMAN SERVICES CASE MANAGER CLOSING NOTES: PT AO TIMES 1- REFUSED ALL MEDICATIONS DURING SHIFT. WAS ABLE TO GIVE REGLAN AND LASIX ONE DOCE. PT CONFSED AND COMBATIVE, BITING AND HITTING STAFF. CALLED DOC FOR RESTRAINTS AND ATIVAN. CHECKED BLOOD SUGAR AND HAD CRITICAL LOW OF 8 INTITAL PROTOCOL. CALLED LAB STAT. CRITICAL LAB VALUES CAME BACK AT MAG 1.0 POTASSIUM. 3.0. DOCTOR ORDERED 4 GRAMS OF MAG AND 40 OF IV POTASSIUM. SODIUM LEVEL IS HGIH AT 143. OUTPUT OF 5550. NEEDS REEVALUATION BY PHYSICAL KIERRA. PTS STATUS IS DETERORATING. BLOOD SUGAR DROPPING EXTREMLY FAST AND REFUSING TO EAT. DOCTOR ORDER D 10 NS. CENTERAL LINE IN TACT AND PATENT. ON 3 LITERS ON THE NC, BUT WITHOUT DESATURATS. WILL ENDORSE TO AM NURSE TO CARRY OUT PLAN OF CARE
[2018-07-31] MEDS: IV 10% DEXTROSE 1,000 ML IV PRN (07:00)
[2018-07-31] MEDS ORDERED: Sodium Chloride 154 MEQ in IV 10% DEXTROSE 1,000 ML IV PRN (07:00)
[2018-07-31] MEDS ORDERED: IV 10% DEXTROSE 1,000 ML IV PRN (07:00)
[2018-07-31] MEDS: LEVOTHYROXINE SODIUM 125 MCG TABLET PO SCH (07:30)
[2018-07-31 08:00] VITALS: BP 130/72
[2018-07-31] MEDS: CARVEDILOL 3.125 MG TABLET PO SCH ×2 (08:49→20:13)
[2018-07-31] MEDS: POTASSIUM CHLORIDE 20 MEQ TAB.PRT.SR PO SCH (08:49)
[2018-07-31] MEDS: PROSOURCE / PROSTAT (PYXIS) 30 ML UDC GT SCH (08:49)
[2018-07-31] MEDS: PANTOPRAZOLE 40 MG TABLET.DR PO SCH ×2 (08:50→20:14)
[2018-07-31] MEDS: SPIRONOLACTONE 25 MG TABLET PO SCH (08:50)
[2018-07-31] MEDS: HYDROCORTISONE SOD SUCCINATE 100 MG/2 ML VIAL IV SCH (08:53)
[2018-07-31] MEDS: Z GUARD REMEDY 2 OZ OINT TP PRN (08:58)
[2018-07-31] MEDS: Z GUARD REMEDY 2 OZ OINT TP SCH ×2 (08:59→20:14)
--- NOTE | 2018-07-31 10:53 | NUR ---
RN OPENING TELE NOTES RECEIVED REPORT FROM INVESTMENT BANKER RN. PT IS ON 3L NC WITH MONITOR AT BEDSIDE PT DESAT TO 85% WHEN NC IS OFF. PT APPEARS TO BE VERY AGITATED. ATTEMPTED TO BITE WHEN NC WAS PLACED BACK ON PT. PT HAS A J CARLOS MIDLINE RUNNING D10. DUE TO AGITATION ONLY A VISUAL ASSESSMENT WAS ABLE TO BE PERFORMED. SOFT RESTRAINTS ON BILATERAL WRISTS. PT HAS A TEMPLETON DRAINING CLEAR YELLOW URINE TO GRAVITY. BED IS LOCKED AND IN LOWEST POSITION. WILL CONTINUE TO MONITOR PT.
[2018-07-31 11:46] VITALS: BP 130/72
[2018-07-31 12:00] VITALS: BP 116/41
[2018-07-31] MEDS: LACTULOSE 10 G/15 ML UDC (PYXIS) PO SCH ×4 (12:00→23:48)
--- NOTE | 2018-07-31 14:30 | NUR ---
DIETITIAN CONSULTANT NOTES RECEIVED REPORT FROM ILIANA WEBB. WILL RESUME CARE.
--- NOTE | 2018-07-31 15:45 | NUR ---
PT'S SISTER, MINA SALMON RECEIVED CALL FROM SISTER MINA, SAID SHE WILL TRY TO VISIT TODAY. ATTEMPTING TO LOCATE PATIENT. UPDATED SISTER ON POC.
[2018-07-31 16:00] VITALS: BP 159/93
--- NOTE | 2018-07-31 16:03 | NUR ---
BIOMASS PLANT MANAGER NOTES ENDORSED PT TO JON BARRIENTOS FOR MUKUL.
--- NOTE | 2018-07-31 18:45 | NUR ---
PT HAD AN EPISODE OF V-TACH AND REVERTED BACK TO SR. MADE AWARE. ORDERED BLOOD DRAW. AUTO GARAGE ATTENDANT WAS UNABLE TO DRAW BLOOD TO PT BEING VERY AGGRESSIVE. WILL CALL LAB WHEN PT MORE COOPERATIVE.
--- NOTE | 2018-07-31 18:54 | NUR ---
FURNITURE MECHANIC CLOSING NOTES PT IS VERY NONCOMPLIANT. PT IS MORE ALERT AND VERBALLY ABUSIVE WITH STAFF. PT IS ON BILATERAL WRIST SOFT RESTRAINTS. PT IS COMBATIVE AND PUNCHING AND BITING. PT IS ON 3L O2 VIA NC 93%. TEMPLETON IS DRAINING CLEAR YELLOW FLUID. PT REMOVED TELE MONITOR AND IS NOT ALLOWING STAFF TO PLACE NEW LEADS. WILL ENDORSE CONTINUITY OF CARE TO BUILDING WRECKER RN.
--- NOTE | 2018-07-31 19:30 | NUR ---
PRACTICE OFFICE ASSOCIATE OPENING NOTES RECEIVED PATIENT IN BED AWAKE. VERBALLY ABUSIVE. REFUSES TO ANSWER QUESTIONS APPROPRIATELY. BREATHING EVEN AND UNLABORED. NO SOB NOTED. ON 2LPM VIA NC. NO S/S OF PAIN OR DISCOMFORT. NO FACIAL GRIMACING. RIGHT UPPER ARM PICC LINE INTACT AND PATENT. SKIN DRY AND WARM TO TOUCH. AFEBRILE. TEMPLETON CATH INTACT AND PATENT. PATIENT REFUSES TO BE THOROUGHLY ASSESSED AND CONTINUES TO CUSS OUT NURSES. WILL CONTINUE TO MONITOR.
[2018-07-31 20:00] VITALS: BP 113/76
--- NOTE | 2018-07-31 22:00 | NUR ---
MARBLE POLISHER NOTES PATIENT REFUSED ALL DUE MEDICATIONS DESPITE EXPLANATION OF RISKS AND BENEFITS. PATIENT CONTINUOUSLY REFUSED, VERBALLY ABUSIVE TOWARDS STAFF. NON COMPLIANT. WILL CONTINUE TO MONITOR.
--- NOTE | 2018-07-31 22:41 | NUR ---
NIPPLE THREADER NOTES PATIENT REFUSED BLOOD WORK DESPITE EXPLANATION OF RISKS AND BENEFITS. PER PATIENT "LATER." PHLEB INSTRUCTED TO COME BACK DURING THE 0500 LABS.
[2018-08-01] VITALS: BP 151/83
[2018-08-01] MEDS: BLOOD SUGAR DIAGNOSTIC 1 EACH STRIP IN SCH ×5 (00:17→23:25)
[2018-08-01] MEDS: INSULIN REGULAR, HUMAN 100 UNIT/ML 3 ML VIAL SQ PRN ×3 (00:20→23:30)
[2018-08-01 00:28] LABS: MAGNESIUM 1.3 mg/dL (1.8-2.4)
[2018-08-01 00:34] LABS: POTASSIUM 2.5 mmol/L (3.5-5.1)
--- NOTE | 2018-08-01 00:45 | NUR ---
PROGRAM DIR NOTES PATIENT ON TELE MONITOR. NOTED WITH AN EPISODE OF VTACH WITH 8 BEATS. BP 151/83 HR 63. BLOOD DRAWN FOR POTASSIUM AND MAGNESIUM DONE. PAGED MOBILITY DEVELOPER KYLE BOURGEOIS. INFORMED OF EPISODE OF VTACH. ALSO INFORMED KYLE BOURGEOIS THAT PATIENT HAD AN EPISODE OF VTACH DURING THE DAYSHIFT, WHICH DR. MENDEZ WAS AWARE OF AND ORDERED POTASSIUM AND MAG BUT PATIENT REFUSED MULTIPLE TIMES. INFORMED KYLE ON NEW POTASSIUM OF 2.5 AND MAGNESIUM OF 1.3. PER MOBILITY DEVELOPER KYLE BOURGEOIS, GIVE MAGNESIUM 300MG IV, AND POTASSIUM CHLORIDE 40MEQ IV. PER KYLE, SHE WILL INPUT ORDERS. WILL CONTINUE TO MONITOR.
[2018-08-01] MEDS: POTASSIUM CL. PREMIX PERIPHER. 50 ML IV SCH ×13 (01:48→22:07)
[2018-08-01] MEDS: Magnesium 1GM/D5W 100ML PREMIX 100 ML IV SCH ×3 (01:48→04:06)
[2018-08-01 04:00] VITALS: BP 131/73
[2018-08-01] MEDS: METOCLOPRAMIDE HCL 10 MG/2 ML VIAL IV SCH ×2 (05:24→10:25)
[2018-08-01] MEDS: LACTULOSE 10 G/15 ML UDC (PYXIS) PO SCH ×4 (05:51→23:26)
--- NOTE | 2018-08-01 06:54 | NUR ---
SUPERVISOR PARTIAL DENTURE DEPARTMENT NOTES PATIENT RESTING IN BED. NOT IN ANY DISTRESS. PATIENT REFUSED ALL ORAL MEDICATIONS THROUGHOUT SHIFT BUT ALL ORDERED POTASSIUM IV AND MAGNESIUM IV GIVEN. SR 70 ON TELE MONITOR. BREATHING EVEN AND UNLABORED. NO SOB NOTED. ON 2LPM VIA NC. NO COMPLAINTS OF PAIN OR DISCOMFORT. NO FACIAL GRIMACING. RIGHT UPPER ARM PICC LINE INTACT AND PATENT WITH IVF INFUSING. ALL DRESSINGS CHANGED. REMAINS ON RESTRAINTS. ALL OTHER NEEDS METS. SAFETY MEASURES IN PLACE. CALL LIGHT WITHIN REACH. WILL ENDORSE TO ONCOMING NURSE FOR MUKUL.
[2018-08-01 07:14] LABS: BASOPHILS % (AUTO) 0.3 % (0.0-2.0); EOSINOPHILS % (AUTO) 0.5 % (0.0-6.0); HEMATOCRIT 29 % (39-51); HEMOGLOBIN 9.5 g/dL (13.5-17.5); LYMPHOCYTES # (AUTO) 0.7 /CMM (0.8-4.8); LYMPHOCYTES % (AUTO) 9.5 % (20.0-44.0); MEAN CORPUSCULAR HGB CONC 33 g/dl (31.0-36.0); MEAN CORPUSCULAR VOLUME 89 fL (80-96); MONOCYTES # (AUTO) 0.6 /CMM (0.1-1.30); MONOCYTES % (AUTO) 8.4 % (2.0-12.0); NEUTROPHILS # (AUTO) 5.8 /CMM (1.8-8.9); NEUTROPHILS % (AUTO) 81.3 % (43.0-81.0); PLATELET COUNT (AUTO) 103 /CMM (150-450); RED BLOOD CELL COUNT(AUTO) 3.26 MIL/uL (4.5-6.0); WHITE BLOOD COUNT (AUTO) 7.2 K/uL (4.3-11.0)
[2018-08-01 07:19] LABS: CALCIUM, SERUM 7.5 mg/dL (8.5-10.1); CREATININE 0.6 mg/dL (0.6-1.3); MAGNESIUM 1.9 mg/dL (1.8-2.4); POTASSIUM 2.9 mmol/L (3.5-5.1)
[2018-08-01 08:00] VITALS: BP 127/92
--- NOTE | 2018-08-01 08:00 | NUR ---
TELE1/RN AM SHIFT INITIAL NOTES RECEIVED PT ASLEEP IN BED, EASILY AROUSED, PT A/O X 2, VERBALLY AGGRESSIVE AND THREATENS TO HURT ME, DOES NOT WANT TO BE TOUCH. ON 2L O2 VIA N/C SATURATING @ 94%, RESPIRATIONS EVEN & UNLABORED, LUNG SOUNDS CLEAR. ON TELE WITH SINUS RHYTHM, HR 74. PICC LINE WITH ON GOING INFUSION OF DEXTROSE @ 50CC/HR, PICC LINE PATENT WITH POSITIVE BLOOD RETURN, FLUSHED, NO S/S OF INFECTION. TEMPLETON CATHETER INTACT WITH YELLOW URINE OUTPUT. SCHEDULED AM MEDS TO BE GIVEN. CL WITHIN REACHED AND SAFETY MAINTAINED. ON GOING MONITORING.
[2018-08-01] MEDS: CARVEDILOL 3.125 MG TABLET PO SCH ×2 (08:49→20:57)
[2018-08-01] MEDS: POTASSIUM CHLORIDE 20 MEQ TAB.PRT.SR PO SCH (08:49)
[2018-08-01] MEDS: PROSOURCE / PROSTAT (PYXIS) 30 ML UDC GT SCH (08:49)
[2018-08-01] MEDS: PANTOPRAZOLE 40 MG TABLET.DR PO SCH ×2 (08:49→20:57)
[2018-08-01] MEDS: HYDROCORTISONE SOD SUCCINATE 100 MG/2 ML VIAL IV SCH (08:49)
[2018-08-01] MEDS: SPIRONOLACTONE 25 MG TABLET PO SCH (08:49)
[2018-08-01] MEDS: LEVOTHYROXINE SODIUM 125 MCG TABLET PO SCH (08:49)
[2018-08-01] MEDS: Z GUARD REMEDY 2 OZ OINT TP SCH ×2 (08:50→20:58)
--- NOTE | 2018-08-01 08:50 | NUR ---
TELE1/RN AM MEDS I WAS ABLE TO CONVINCE PT TO TAKE HIS AM MEDS EXCEPT FOR PROSTAT. PT SEEMS COOPERATIVE AT THIS MOMENT. MONITORING CONTINUED.
[2018-08-01] MEDS ORDERED: POTASSIUM CHLORIDE 20 MEQ TAB.PRT.SR PO SCH (10:00)
[2018-08-01] MEDS: IV 10% DEXTROSE 1,000 ML IV PRN (10:26)
[2018-08-01 12:00] VITALS: BP 114/68
--- NOTE | 2018-08-01 12:00 | NUR ---
TELE1/RN NOON ROUNDS PT CHANGE DEMEANOR AGAIN, NOT COOPERATIVE OR FRIENDLY, REFUSED TO HAVE BLOOD GLUCOSE CHECKED.
--- NOTE | 2018-08-01 13:45 | NUR ---
TELE1/RN ROUNDS - DR. VELEZ UPDATED PT'S CONDITION. PT SEEN AND EXAMINED BY DR. VELEZ.
[2018-08-01] MEDS: FLUOXETINE HCL 20 MG CAPSULE PO SCH (14:00)
[2018-08-01] MEDS: QUETIAPINE FUMARATE 25 MG TABLET PO SCH ×3 (14:30→20:56)
--- NOTE | 2018-08-01 15:38 | NUR ---
VANI was informed by pt's RN Dolly that pt's sister Patsy would like to speak with VANI. Her contact is . VANI called Patsy who was very happy to locate her brother. She had lost touch with him and didn't know his whereabouts. She is concerned that pt. will go back on the streets. VANI informed her that the hospital case management team along with Bria Sandoval from [facility] are working collaboratively to find a safe discharge plan for the pt. once he is cleared. Patsy informed VANI she did visit with the pt. yesterday evening and will stop by this evening again to visit with him. VANI contacted Bria Sandoval and messaged her pt' sister Patsy's contact information.
--- NOTE | 2018-08-01 16:00 | NUR ---
TELE1/RN AFTERNOON ROUNDS PT REFUSED TO HAVE HIS VITAL SIGNS TAKEN. ALSO ATTEMPTED TO GIVE PROZAC AND SEROQUEL, NOT ABLE TO CONVINCE PT, BECOMING AGITATED. CONTINUING INFUSION OF POTASSIUM. NO ACUTE CHANGE OF CONDITION.
--- NOTE | 2018-08-01 19:00 | NUR ---
TELE1/RN AM SHIFT END NOTES ALL NEEDS MET. PT HAD ERRATIC BEHAVIORS THROUGHOUT THE SHIFT, WAS NOT ABLE CONVINCE TO TAKE OTHER MEDICATIONS ESPECIALLY PROZAC AND SEROQUEL. ENDORSED TO PM NURSE TO COMPLETE INFUSION OF POTASSIUM AND CONTINUE CARE. CL WITHIN REACHED AND SAFETY MAINTAINED.
--- NOTE | 2018-08-01 19:20 | NUR ---
TELE1/RN ENTRY NOTES PATIENT IN BED RESTING COMFORTABLY AT THIS TIME. NO S/S OF ACUTE DISTRESS NOTED. RESP EVEN AND UNLABORED. NO SOB NOTED. PATIENT A/O X 2., NO S/S OF PAIN NOTED AT THIS TIME. POTASSIUM INFUSING ORDERED. F/C IN PLACE , PATENT, DRAINING WELL WITH CLEAR YELLOW URINE. J CARLOS PICC LINE SITE NOTED WITH NO S/S OF INFECTION. SAFETY MAINTAINED, BED AT THE LOWEST POSITION, LOCKED. CALL LIGHT WITHIN REACH. WILL CONTINUE TO MONITOR PATIENT PER PLAN OF CARE.
[2018-08-01 20:00] VITALS: BP 126/66
[2018-08-01] MEDS: AMOXICILLIN TRIHYDRATE 250 MG CAPSULE PO SCH (20:57)
[2018-08-01] MEDS: CLARITHROMYCIN 500 MG TABLET PO SCH (20:57)
[2018-08-01] MEDS ORDERED: AMOXICILLIN TRIHYDRATE 500 MG CAPSULE PO SCH (21:00)
[2018-08-02] VITALS: BP 116/58
[2018-08-02] MEDS: POTASSIUM CL. PREMIX PERIPHER. 50 ML IV SCH ×7 (00:32→17:12)
--- NOTE | 2018-08-02 01:02 | NUR ---
TELE/RN NOTES PATIENT NO LONGER ON RESTRAINT.
[2018-08-02 04:00] VITALS: BP 124/56
[2018-08-02] MEDS: BLOOD SUGAR DIAGNOSTIC 1 EACH STRIP IN SCH ×4 (05:22→23:27)
[2018-08-02] MEDS: LACTULOSE 10 G/15 ML UDC (PYXIS) PO SCH ×4 (05:23→23:29)
[2018-08-02] MEDS: INSULIN REGULAR, HUMAN 100 UNIT/ML 3 ML VIAL SQ PRN ×2 (05:24→23:30)
[2018-08-02] MEDS: IV 10% DEXTROSE 1,000 ML IV PRN (06:30)
--- NOTE | 2018-08-02 06:49 | NUR ---
TELE1/RN EXIT NOTES PATIENT IN NO S/S OF ACUTE DISTRESS. RESP EVEN AND UNLABORED. NO SOB NOTED. NO S/S OF PAIN NOTED AT THIS TIME. F/C IN PLACE , PATENT, DRAINING WELL WITH CLEAR YELLOW URINE, WITH OUTPUT OF 600CC. J CARLOS PICC LINE SITE NOTED WITH NO S/S OF INFECTION RUNNING WITH D10 @50CC/HR. ALL DUE MEDS GIVEN ORDERED. PATIENT TOLERATED WELL. KEPT CLEAN AND DRY. ALL NEEDS ATTENDANT. PATIENT REFUSED TO BE CHANGED @0500. SAFETY MAINTAINED, BED AT THE LOWEST POSITION, LOCKED. CALL LIGHT WITHIN REACH. WILL ENDORSE TO AM SHIFT NURSE FOR MUKUL
[2018-08-02] MEDS: LEVOTHYROXINE SODIUM 125 MCG TABLET PO SCH ×2 (07:30→09:34)
[2018-08-02 07:35] LABS: BASOPHILS % (AUTO) 0.3 % (0.0-2.0); EOSINOPHILS % (AUTO) 0.5 % (0.0-6.0); HEMATOCRIT 26 % (39-51); HEMOGLOBIN 8.5 g/dL (13.5-17.5); LYMPHOCYTES # (AUTO) 0.6 /CMM (0.8-4.8); LYMPHOCYTES % (AUTO) 10.7 % (20.0-44.0); MEAN CORPUSCULAR HGB CONC 32 g/dl (31.0-36.0); MEAN CORPUSCULAR VOLUME 90 fL (80-96); MONOCYTES # (AUTO) 0.5 /CMM (0.1-1.30); MONOCYTES % (AUTO) 8.6 % (2.0-12.0); NEUTROPHILS # (AUTO) 4.4 /CMM (1.8-8.9); NEUTROPHILS % (AUTO) 79.9 % (43.0-81.0); PLATELET COUNT (AUTO) 78 /CMM (150-450); RED BLOOD CELL COUNT(AUTO) 2.93 MIL/uL (4.5-6.0); WHITE BLOOD COUNT (AUTO) 5.5 K/uL (4.3-11.0)
[2018-08-02 07:37] LABS: CALCIUM, SERUM 7.5 mg/dL (8.5-10.1); CREATININE 0.6 mg/dL (0.6-1.3); MAGNESIUM 1.4 mg/dL (1.8-2.4); PHOSPHORUS 1.8 mg/dL (2.5-4.9); POTASSIUM 3.2 mmol/L (3.5-5.1)
[2018-08-02 08:40] LABS: EOSINOPHILS % (MANUAL) 2 % (0-4); LYMPHOCYTES % (MANUAL) 4 % (16-48); MONOCYTES % (MANUAL) 7 % (0-11.0); NEUTROPHILS % (MANUAL) 87 (42-76)
[2018-08-02] MEDS: AMOXICILLIN TRIHYDRATE 250 MG CAPSULE PO SCH ×3 (09:00→20:55)
[2018-08-02] MEDS: CLARITHROMYCIN 500 MG TABLET PO SCH ×3 (09:00→20:57)
[2018-08-02] MEDS: QUETIAPINE FUMARATE 25 MG TABLET PO SCH ×3 (09:00→17:00)
[2018-08-02] MEDS: PROSOURCE / PROSTAT (PYXIS) 30 ML UDC GT SCH ×2 (09:00→09:35)
[2018-08-02] MEDS: FLUOXETINE HCL 20 MG CAPSULE PO SCH ×2 (09:00→09:33)
[2018-08-02] MEDS: PANTOPRAZOLE 40 MG TABLET.DR PO SCH ×3 (09:00→20:55)
[2018-08-02] MEDS: CARVEDILOL 3.125 MG TABLET PO SCH ×2 (09:00→20:56)
[2018-08-02] MEDS: SPIRONOLACTONE 25 MG TABLET PO SCH ×2 (09:00→09:34)
[2018-08-02] MEDS: POTASSIUM CHLORIDE 20 MEQ TAB.PRT.SR PO SCH ×2 (09:00→09:33)
[2018-08-02] MEDS: HYDROCORTISONE SOD SUCCINATE 100 MG/2 ML VIAL IV SCH (09:35)
[2018-08-02] MEDS: Z GUARD REMEDY 2 OZ OINT TP SCH ×2 (09:36→20:56)
[2018-08-02] MEDS: Magnesium 1GM/D5W 100ML PREMIX 100 ML IV SCH ×4 (09:45→13:54)
--- NOTE | 2018-08-02 10:00 | NUR ---
rn note PT REFUSES CARE, MEDS, TO BE TOUCHED, CLEANED, REPOSITIONED, VS CHECK. VERY HOSTILE AND ABUSIVE VERBALLY. STATES "LEAVE ME ALONE, I JUST WANT TO SLEEP, EVERYONE KEEPS BOTHERING ME. GO AWAY AND SHUT THE DOOR".
[2018-08-02 12:00] VITALS: BP 107/59
[2018-08-02] MEDS ORDERED: NEUTRA PHOS 1 POWD.PACKET PO ONE (13:00)
[2018-08-02] MEDS ORDERED: Sodium Phosphate 15 MMOL in IV D5W 250 ML IV ONE (13:00)
--- NOTE | 2018-08-02 19:22 | NUR ---
TELE1/RN ENTRY NOTES PATIENT IN BED RESTING COMFORTABLY AT THIS TIME. NO S/S OF ACUTE DISTRESS NOTED. RESP EVEN AND UNLABORED. NO SOB NOTED. PATIENT A/O X2. NO S/S OF PAIN NOTED AT THIS TIME. F/C IN PLACE , PATENT, DRAINING WELL WITH CLEAR YELLOW URINE. J CARLOS PICC LINE SITE NOTED WITH NO S/S OF INFECTION RUNNING WITH D10 @50CC/HR. SAFETY MAINTAINED, BED AT THE LOWEST POSITION, LOCKED. CALL LIGHT WITHIN REACH. WILL CONTINUE TO MONITOR PATIENT PER PLAN OF CARE.
[2018-08-02 20:00] VITALS: BP 133/54
--- NOTE | 2018-08-02 23:20 | NUR ---
PATIENT BLOOD SUGAR NOTED 421, RECHECKED AT THIS TIME NOTED 244 INSULIN GIVEN PER SLIDING SCALE
--- NOTE | 2018-08-03 00:09 | NUR ---
MS/RN NOTES DONE ANOTHER BLOOD SUGAR CHECK AT THIS TIME NOTED 245.
[2018-08-03 04:00] VITALS: BP 125/84
[2018-08-03] MEDS: LACTULOSE 10 G/15 ML UDC (PYXIS) PO SCH ×3 (05:50→18:00)
[2018-08-03] MEDS: BLOOD SUGAR DIAGNOSTIC 1 EACH STRIP IN SCH ×3 (05:50→18:00)
[2018-08-03] MEDS: INSULIN REGULAR, HUMAN 100 UNIT/ML 3 ML VIAL SQ PRN (05:52)
--- NOTE | 2018-08-03 06:50 | NUR ---
M/S RN EXIT NOTES PATIENT IN NO ACUTE DISTRESS. RESPIRATION EVEN AND UNLABORED. NO SOB NOTED. NO S/S OF PAIN NOTED. ALL DUE MEDS GIVEN ORDERED. PATIENT TOLERATED WELL. NO SIGNIFICANT CHANGE IN CONDITION NOTED. SAFETY MAINTAINED. KEPT CLEAN AND DRY. CALL LIGHT WITHIN REACH. WILL ENDORSE TO AM SHIFT NURSE FOR MUKUL.
--- NOTE | 2018-08-03 07:35 | NUR ---
RN OPENING NOTES RECEIVED PATIENT IN BED RESTING COMFORTABLY. NO PAIN OR ACUTE DISTRESS AT THIS TIME. RESPIRATION EVEN AND UNLABORED. NO SOB NOTED. SKIN IS DRY WARM TO TOUCH. PATIENT IS ALERT AND ORIENTED X2. PATIENT IS NOTED WITH TEMPLETON CATH IN PLACE. INTACT AND PATENT, DRAINING WELL WITH CLEAR YELLOW URINE. NOTED WITH J CARLOS PICC LINE. NO S/S OF INFECTION OR INFILTRATION. RUNNING WITH D10 @50CC/HR. ALL NEEDS ANTICIPATED. CALL LIGHT WITHIN REACHED. BED LOCKED AND IN LOWEST POSITION. SAFETY MAINTAINED. PLAN OF CARE DISCUSSED WITH PATIENT. WILL CONTINUE TO MONITOR PATIENT CLOSELY.
[2018-08-03] MEDS: LEVOTHYROXINE SODIUM 125 MCG TABLET PO SCH (07:44)
[2018-08-03 08:00] VITALS: BP 110/66
[2018-08-03] MEDS: HYDROCORTISONE SOD SUCCINATE 100 MG/2 ML VIAL IV SCH (09:00)
[2018-08-03] MEDS: POTASSIUM CHLORIDE 20 MEQ TAB.PRT.SR PO SCH (09:00)
[2018-08-03] MEDS: AMOXICILLIN TRIHYDRATE 250 MG CAPSULE PO SCH ×2 (09:00→20:45)
[2018-08-03] MEDS: FLUOXETINE HCL 20 MG CAPSULE PO SCH (09:00)
[2018-08-03] MEDS: CARVEDILOL 3.125 MG TABLET PO SCH ×2 (09:00→20:44)
[2018-08-03] MEDS: PROSOURCE / PROSTAT (PYXIS) 30 ML UDC GT SCH (09:00)
[2018-08-03] MEDS: SPIRONOLACTONE 25 MG TABLET PO SCH (09:00)
[2018-08-03] MEDS: PANTOPRAZOLE 40 MG TABLET.DR PO SCH ×2 (09:00→20:44)
[2018-08-03] MEDS: CLARITHROMYCIN 500 MG TABLET PO SCH ×2 (09:00→20:44)
[2018-08-03] MEDS: QUETIAPINE FUMARATE 25 MG TABLET PO SCH ×2 (09:00→17:00)
--- NOTE | 2018-08-03 09:20 | NUR ---
RN NOTES MORNING MEDICATIONS HELD DUE TO PATIENT REFUSING. EXPLAINED RISK AND BENEFITS X3. STILL REFUSED. PATIENT REMAINS IN STABLE CONDITION. WILL CONTINUE TO MONITOR CLOSELY.
[2018-08-03] MEDS: Z GUARD REMEDY 2 OZ OINT TP PRN (10:19)
[2018-08-03] MEDS: Z GUARD REMEDY 2 OZ OINT TP SCH ×2 (10:21→20:47)
--- NOTE | 2018-08-03 13:05 | NUR ---
RN NOTES WENT INTO PATIENT ROOM TO INFORM HIM ABOUT TAKING PICTURES OF HIS WOUNDS BEFORE DISCHARGE. PATIENT STATED " I DONT WANT YOU GUYS TO DO ANYTHING TO ME RIGHT NOW". EXPLAINED REASON OF TAKING PICTURES, PATIENT STILL REFUSED. PATIENT REMAINS IN STABLE CONDITION. WILL CONTINUE TO MONITOR.
--- NOTE | 2018-08-03 13:17 | NUR ---
RN NOTES TEMPLETON CATHETER WAS REMOVED PER MD ORDER BEFORE DISCHARGE. PATIENT REMAINS IN STABLE CONDITION. WILL CONTINUE TO MONITOR.
--- NOTE | 2018-08-03 16:10 | NUR ---
RN CLOSING NOTES PATIENT IN BED AWAKE ALERT AND RESTING COMFORTABLY. ENDORSED TO PM NURSE REGARDING THE SITUATION WITH THE PATIENT. PATIENT INITIALLY WAS REFUSING TO GO TO BOARD AND CARE AND WANTED TO GO AMA BUT PATIENT IS UNABLE TO WALK. [employer] SPOKE TO PATIENT AGAIN TO CONVINCE HIM TO GO TO THIS BOARD AND CARE. PATIENT AGREED ON THE LAST TRY. ACCORDING TO [employer] IF PATIENT REFUSE AGAIN WHEN THE TRANSPORTATION COMES IN THE UNIT TO CALL SECURITY/[employer] AND TO EXPLAIN AGAIN THE SAFE DISCHARGE PLAN FOR THE PATIENT. ALL NEEDS ANTICIPATED. KEPT CLEAN AND DRY. CALL LIGHT WITHIN REACHED. WILL CONTINUE TO MONITOR. Addendum: 08/03/18 at 1922 by DAVID DOOLEY RN RN CLOSING NOTES PATIENT IN BED AWAKE ALERT AND RESTING COMFORTABLY. ENDORSED TO PM NURSE REGARDING THE SITUATION WITH THE PATIENT. PATIENT INITIALLY WAS REFUSING TO GO TO BOARD AND CARE AND WANTED TO GO AMA BUT PATIENT IS UNABLE TO WALK. [employer] SPOKE TO PATIENT AGAIN TO CONVINCE HIM TO GO TO THIS BOARD AND CARE. PATIENT AGREED ON THE LAST TRY. ACCORDING TO [employer] IF PATIENT REFUSE AGAIN WHEN THE TRANSPORTATION COMES IN THE UNIT TO CALL SECURITY/[employer] AND TO EXPLAIN AGAIN THE SAFE DISCHARGE PLAN FOR THE PATIENT. ALL NEEDS ANTICIPATED. KEPT CLEAN AND DRY. CALL LIGHT WITHIN REACHED. WILL CONTINUE TO MONITOR.
--- NOTE | 2018-08-03 16:13 | NUR ---
VANI was informed by lining caser Annabelle that pt. is wanting to leave AMA. VANI and Annabelle met with pt. bedside. SW tried to encourage pt. not to go AMA because he has a board and care facility that he is going to be discharged to. Pt. is hostile and adamant on leaving. AMA was signed by the pt. however pt. refused homeless resources and refused to sign the Homeless Waiver Form. VANI and lining caser signed Homeless Waiver form as witnesses stating pt. declined halfway placement, resources and signing of the form. No other social service needs are requested at this time. VANI provided pt. with clothing, shoes and TAP card. Pt's RN francesco and MURPHYJhon SHEA Soon have been updated with the aforementioned information. VANI also messaged pt's [facility] health clinician Bria De regarding pt. going AMA.
--- NOTE | 2018-08-03 19:23 | NUR ---
RN CLOSING NOTES PATIENT IN BED AWAKE ALERT AND RESTING COMFORTABLY. ENDORSED TO PM NURSE REGARDING THE SITUATION WITH THE PATIENT. PATIENT INITIALLY WAS REFUSING TO GO TO BOARD AND CARE AND WANTED TO GO AMA BUT PATIENT IS UNABLE TO WALK. [employer] ARCHITECT SPOKE TO PATIENT AGAIN TO CONVINCE HIM TO GO TO THIS BOARD AND CARE. PATIENT AGREED ON THE LAST TRY. ACCORDING TO [employer] ARCHITECT IF PATIENT REFUSE AGAIN WHEN THE TRANSPORTATION COMES IN THE UNIT TO CALL SECURITY/[employer] AND TO EXPLAIN AGAIN THE SAFE DISCHARGE PLAN FOR THE PATIENT. ALL NEEDS ANTICIPATED. KEPT CLEAN AND DRY. CALL LIGHT WITHIN REACHED. WILL CONTINUE TO MONITOR.
--- NOTE | 2018-08-03 19:52 | NUR ---
RN INITIAL MS NOTES PATIENT IN BED RESTING COMFORTABLY. NO PAIN OR ACUTE DISTRESS AT THIS TIME. RESPIRATION EVEN AND UNLABORED. NO SOB NOTED. SKIN IS DRY WARM TO TOUCH. PATIENT IS ALERT AND ORIENTED X2 WITH J CARLOS PICC LINE. NO S/S OF INFECTION OR INFILTRATION. RUNNING WITH D10 @50CC/HR. ALL NEEDS ANTICIPATED. CALL LIGHT WITHIN REACHED. BED LOCKED AND IN LOWEST POSITION. SAFETY MAINTAINED. PLAN OF CARE DISCUSSED WITH PATIENT. WILL CONTINUE TO MONITOR PATIENT CLOSELY FOR DC BACK TO [facility] ETA 2000 PT AWARE.
[2018-08-03 20:00] VITALS: BP 126/78
[2018-08-03 20:44] VITALS: BP 126/78
--- NOTE | 2018-08-03 23:30 | NUR ---
RN DC NOTE PT DC TO [facility], UNABLE TO GIVE REPORT TO STAFF, NO CONTACT NUMBER PROVIDED, CM NOTIFIED SHAILA MARY TO DC PT ABLE BODIED SEAMAN SARAH NOTIFIED STAFF PT COMING AND BED ALREADY ASSIGNED, PERSONAL BELONGING ACCOMPANY WITH PT, FOOD PROVIDED, ALL NEEDS ATTENDED.
== END 2018-08-03 11:30 | disposition home or self-care (01) | DRG 130 ==
LOC: ER 11:47 → MED 13:16 → ICU 07-15 01:56 → TELE1 07-25 10:40 → MEDSG1 07-26 08:44 → TELE1 07-31 05:25 → MEDSG1 08-02 08:45
PROVIDERS: ADMIT Nurse Practitioner Acute Care
PROC: 02HV33Z Insertion of Infusion Device into Superior Vena Cava, Percutaneous Approach (ICD-10-PCS; principal; 2018-07-15)
PROC: 5A1955Z Respiratory Ventilation, Greater than 96 Consecutive Hours (ICD-10-PCS; principal; 2018-07-15)
PROC: 0BH17EZ Insertion of Endotracheal Airway into Trachea, Via Natural or Artificial Opening (ICD-10-PCS; principal; 2018-07-15)
PROC: B548ZZA Ultrasonography of Superior Vena Cava, Guidance (ICD-10-PCS; principal; 2018-07-15)
PROC: 30233N1 Transfusion of Nonautologous Red Blood Cells into Peripheral Vein, Percutaneous Approach (ICD-10-PCS; 2018-07-20)
PROC: 0W994ZZ Drainage of Right Pleural Cavity, Percutaneous Endoscopic Approach (ICD-10-PCS; 2018-07-25)
DX: J96.01 Acute respiratory failure with hypoxia (principal); I46.9 Cardiac arrest, cause unspecified; N17.0 Acute kidney failure with tubular necrosis; A41.9 Sepsis, unspecified organism; E43 Unspecified severe protein-calorie malnutrition; J15.6 Pneumonia due to other Gram-negative bacteria; R65.21 Severe sepsis with septic shock; D61.818 Other pancytopenia; I50.23 Acute on chronic systolic (congestive) heart failure; L03.115 Cellulitis of right lower limb; E11.52 Type 2 diabetes mellitus with diabetic peripheral angiopathy with gangrene; J15.9 Unspecified bacterial pneumonia; I96 Gangrene, not elsewhere classified; L97.929 Non-pressure chronic ulcer of unspecified part of left lower leg with unspecified severity; L97.919 Non-pressure chronic ulcer of unspecified part of right lower leg with unspecified severity; E44.1 Mild protein-calorie malnutrition; E87.1 Hypo-osmolality and hyponatremia; E11.319 Type 2 diabetes mellitus with unspecified diabetic retinopathy without macular edema; I11.0 Hypertensive heart disease with heart failure; B19.20 Unspecified viral hepatitis C without hepatic coma; E78.5 Hyperlipidemia, unspecified; E11.649 Type 2 diabetes mellitus with hypoglycemia without coma; D50.9 Iron deficiency anemia, unspecified; E87.6 Hypokalemia; E87.2 Acidosis; F17.200 Nicotine dependence, unspecified, uncomplicated; Z91.013 Allergy to seafood; Z91.018 Allergy to other foods; Z79.82 Long term (current) use of aspirin; Z79.899 Other long term (current) drug therapy; Z86.73 Personal history of transient ischemic attack (TIA), and cerebral infarction without residual deficits; F33.3 Major depressive disorder, recurrent, severe with psychotic symptoms; F41.9 Anxiety disorder, unspecified; I42.9 Cardiomyopathy, unspecified; I70.0 Atherosclerosis of aorta; J44.9 Chronic obstructive pulmonary disease, unspecified; K21.9 Gastro-esophageal reflux disease without esophagitis; K31.89 Other diseases of stomach and duodenum; K74.60 Unspecified cirrhosis of liver; N39.0 Urinary tract infection, site not specified; Z59.0 Homelessness; Z99.3 Dependence on wheelchair; Z91.19 Patient's noncompliance with other medical treatment and regimen; Z83.3 Family history of diabetes mellitus; Z82.49 Family history of ischemic heart disease and other diseases of the circulatory system; F10.21 Alcohol dependence, in remission; Z91.81 History of falling; D69.6 Thrombocytopenia, unspecified; J98.11 Atelectasis; D68.9 Coagulation defect, unspecified; B96.20 Unspecified Escherichia coli [E. coli] as the cause of diseases classified elsewhere; B37.9 Candidiasis, unspecified; L03.116 Cellulitis of left lower limb; J90 Pleural effusion, not elsewhere classified; L89.010 Pressure ulcer of right elbow, unstageable; L89.150 Pressure ulcer of sacral region, unstageable; S81.011A Laceration without foreign body, right knee, initial encounter; X58.XXXA Exposure to other specified factors, initial encounter; Y92.009 Unspecified place in unspecified non-institutional (private) residence as the place of occurrence of the external cause
CPT/HCPCS: 31720; 36415; 36569; 36600; 71045-TC; 71250-TC; 74018; 76700-TC; 76942-TC; 80048-TC; 80053-TC; 80061-TC; 80076-TC; 80202-TC; 81000-TC; 82105; 82140-TC; 82248-TC; 82533; 82570-TC; 82728-TC; 82784; 82803-TC; 82945-TC; 82947-TC; 82962-TC; 83540-TC; 83605-TC; 83735-TC; 83880; 84100-TC; 84132-TC; 84155; 84155-TC; 84165; 84300-TC; 84439-TC; 84443-TC; 84478-TC; 84481; 84484-TC; 85025-TC; 85385-TC; 85396; 85610-TC; 85730-TC; 86334; 86706; 86803; 86850-TC; 87040-TC; 87070-TC; 87075-TC; 87081-TC; 87086-TC; 87102-TC; 87186-TC; 87340; 87806; 88112-TC; 88305-TC; 88312-TC; 89051-TC; 92526; 92611-TC; 93307-TC; 93970-TC; 94002-TC; 94003-TC; 94760-TC; 94799-TC; 97112-TC; 97530-TC; A4216; A6253; A6403; A9563; C1751; G0378; G0480; J0171; J0692; J1265; J1450; J1720; J1815; J1940; J2020; J2060; J2185; J2270; J2405; J2765; J3370; J3430; J3475; J3480; J3490; J7030; J7040; J7042; J7050; J7060; P9016-BL; P9034-BL